=== PATIENT | female | born 1965 | race Caucasian/White ===

== ENCOUNTER 2021-11-24 09:45 | Outpatient (RCR) | payer OTHER, SELFPAY | END 2022-02-14 14:47 | disposition home or self-care (01) | PROVIDERS: PCP Family Medicine; Visit Provider Family Medicine | DX: M54.50 Low back pain, unspecified (principal); Z51.89 Encounter for other specified aftercare | CPT/HCPCS: 97110; 97140; 97763 ==

== ENCOUNTER 2022-07-06 10:04 | Outpatient (CLI) | payer OTHER, SELFPAY ==
--- OUTSIDE RECORDS SUMMARY | 2022-07-08 07:48 | XMS_ITS | Continuity of Care Document ---
Author Name Unknown Organization [facility] Address [address] [address] [place] [address] Phone Care Team Providers Care Stage Builder Name Role Phone Pascale Hugo CRNA Unavailable Unavailabl e Allergies, Adverse Reactions, Alerts Substance Reaction Status Criticality CEPHALEXIN MONOHYDRATE Nausea/Vomiting Active No Information cephalexin Active No Information amlodipine Active No Information lisinopril Active No Information Medications Medication Instructions Dosage Effective Dates (start - stop) Status Comments hydrochlorothiazide 25 mg tablet take 1 tablet by oral route every day 25 MG - Active atenolol 50 mg tablet take 1 tablet by oral route 2 times every day 50 MG - Active Imitrex 50 mg tablet take 1 tablet by oral route once 50 MG - Active Zofran 4 mg tablet take 1 tablet by oral route 4 times every day 4 MG - Active Procedures Procedure Date Colonoscopy Flex; W/remov Les- 21 Level Iv-surg Path Gross/micro 21 Adenoma(s), Other Neoplasm Detected Duri ng Screen Colonoscopy Flex; W/remov Les- 18 Colonoscopy Flex; W/bx 1/mx Level Iv-surg Path Gross/micro 18 Level Ii-surg Path Gross/micro 18 Advance Directives Directive Yes / No Effective Date File Name No Information Encounters Encounter Description Practice Location Reason(s) For Visit Diagnoses Date Provider Providers Copied on Encounter [facility], [address] [address], [place], [id number], [place] tel:[phone] [facility] No Information 1 Bethel Ashraf. [address] [facility], [place], [place], [address], [place]. tel:[phone] Referring Provider: Lius Yonatantatyana ORTA, [address] [facility] [address], [place], [address]. tel:[phone] [facility], [address] [address], [facility] [place], [address], [place] tel:[phone] [facility] GI Symptoms or Concerns (chief complaint) Colorectal polypsHemorrhoids , internalEncounter for screening for malignant neoplasm of colonBenign neoplasm of ascending colonBenign neoplasm of descending colonPersonal history of colonic polyps 1 Rosalba Whelann. [address] [facility], [address], [place] [facility], [id number], [place]. tel:[phone] Referring Provider: Referral Self. [facility], [address] [address], [place], [address], [place] tel:[phone] [facility] No Information 1 Rosalba Mckeon. [address] [facility], [address], [place], [place], [address], [place]. tel:[phone] [facility], [address] [address], [place] [facility], [address], [place] tel:[phone] [facility] Encounter for screening colonoscopyColore ctal polyp detected on colonoscopyBenign neoplasm of ascending colonBenign neoplasm of transverse colonEncounter for screening for malignant neoplasm of colonPolyp of colon 8 Pastora Quintana. [address] [facility], [address], [place], [place], [address], [place]. tel:[phone] Referring Provider: Sandra Cuellar MD W, [place], [address]. tel:[phone] Family History Family Member Type Diagnosis Age At Onset Mother Problem (finding) Father Problem (finding) Alive and well Son Problem (finding) Cancer Mother Problem (finding) malignant neoplasm of l iver Daughter Problem (finding) asthma Son Problem (finding) malignant neoplasm of t estis Immunizations Vaccine Date Status Comments SARS-COV-2 (COVID-19) vaccin e, mRNA, spike protein, LNP, preservative free, 30 mcg/0.3mL dose administered Note: [facility] bi-direct ional interface ; Source: Other Registry SARS-COV-2 (COVID-19) vaccin e, mRNA, spike protein, LNP, preservative free, 30 mcg/0.3mL dose administered Note: [facility] bi-direct ional interface ; Source: Other Registry Influenza administered Note: [facility] bi-d irectional interface ; Source: Other Registry zoster vaccine recombinant administered N ote: [facility] bi-directional interface ; Source: Other Registry zoster vaccine recombinant administered N ote: [facility] bi-directional interface ; Source: Other Registry Influenza, injectable, Madin Luz Canine Kidney, preservative free, quadrivalent administered Note: [place] [facility] bi- directional interface ; Source: Other Registry tetanus and diphtheria toxoi ds, adsorbed, preservative free, for adult use (5 Lf of tetanus toxoid and 2 Lf of diphtheria toxoid) administered Note: [facility] bi-direct ional interface ; Source: Other Registry Influenza, seasonal, injecta ble, preservative free administered Note: [facility] bi-direct ional interface ; Source: Other Registry Afluria Qd administered Note: [facility] bi-directional interface ; Source: Other Registry tetanus toxoid, reduced diphtheria toxoid, and acellular pertussis vaccine, adsorbed administered Note: [facility] b i-directional interface ; Source: Other Registry tetanus and diphtheria toxoi ds, adsorbed, preservative free, for adult use (5 Lf of tetanus toxoid and 2 Lf of diphtheria toxoid) administered Note: [facility] bi-direct ional interface ; Source: Other Registry Payers Payer name Insurance type Covered alliance party ID [facility]ordy rose[facility] [id number] Social History Type Description Quantity Date Captured Comments Sex Female Smoking Status No Information Chief Complaint And Reason For Visit No Information Reason For Referral Reason For Referral No Information Plan Of Treatment Date Type Action Status No Information History Of Present Illness Encounter Date Complaint History Of Prese nt Illness GI Symptoms or Concerns Functional Status Date Functional Assessmen t No Information Instructions Date Instruction Additional Infor mation Colon Polyps Related to Color ectal polyp detected on colonoscopy Colon Cancer Prevention Related to Colorectal polyp detected on colonoscopy Colon Polyps Related to Color ectal polyp detected on colonoscopy Assessments Type Assessment Date No Information Patient Care Teams Name Effective Dates (start - stop) Status Members No Information
== END 2022-07-06 10:05 | disposition home or self-care (01) ==
LOC: NFLDREF 07-08 07:47
PROVIDERS: PCP Internal Medicine; Referring Provider Family Medicine; Visit Provider Internal Medicine
DX: E78.5 Hyperlipidemia, unspecified (principal)
CPT/HCPCS: 80061

== ENCOUNTER 2022-09-14 14:02 | Outpatient (CLI) | payer OTHER, SELFPAY ==
--- NOTE | 2022-09-14 14:00 | CRLHL7_ITS ---
For Patients: As a result of the Cures Act, medical imaging exams and procedure reports are released immediately into your electronic medical record. You may view this report before your referring provider. If you have questions, please contact your health care provider. BILATERAL SCREENING MAMMOGRAM WITH COMPUTER-AIDED DETECTION AND TOMOSYNTHESIS TECHNIQUE: CC and MLO views were obtained. These mammographic images have been obtained using full-field digital technique. These mammographic images were interpreted with the benefit of computer-aided detection. Breast Tomosynthesis was used in this interpretation. COMPARISON FILM: 05/26/21, 02/19/20, 12/05/18. FINDINGS: The breasts are heterogeneously dense, which may obscure small masses IMPRESSION: There is no radiographic evidence for malignancy. ASSESSMENT: BI-RADS Category 1: Negative RECOMMENDATION: Routine screening mammogram in 1 year. A lay language report of this examination will be provided to the patient. Vasiliy Fountain M.D. Diagnostic Radiologist [email or web address] SMILEY/[email or web address] / be/Dictated by: Vasiliy Fountain MD @ 09/17/2022 8:35:00 AM (Electronically Signed)
== END 2022-09-14 14:03 | disposition home or self-care (01) ==
PROVIDERS: PCP Internal Medicine; Visit Provider Internal Medicine
DX: Z12.31 Encounter for screening mammogram for malignant neoplasm of breast (principal); R92.2 Inconclusive mammogram
CPT/HCPCS: 77063; 77067

== ENCOUNTER 2023-01-18 09:15 | Outpatient (CLI) | payer OTHER, SELFPAY | END 2023-01-18 09:16 | disposition home or self-care (01) | LOC: NFLDREF 01-21 08:14 | PROVIDERS: PCP Internal Medicine; Referring Provider Internal Medicine; Visit Provider Internal Medicine | DX: E78.5 Hyperlipidemia, unspecified (principal); R73.03 Prediabetes | CPT/HCPCS: 80061 ==

== ENCOUNTER 2023-02-25 15:49 | Outpatient (CLI) | payer OTHER, SELFPAY ==
[2023-02-25 15:57] LABS: Appearance Urine Clear (Clear); Bilirubin Urine Negative (Negative); Blood Urine 1+ (Negative); Color Urine Yellow (Yellow); Glucose Urine Negative (Negative); Ketones Urine Negative (Negative); Leukocyte Esterase Urine Trace (Negative); Nitrite Urine Negative (Negative); Protein Urine Negative (Negative); Specific Gravity Urine 1.025 (1.000-1.030); Urobilinogen Urine 0.2 (0.2-1.0); pH Urine 5.5 (5.0-8.5)
[2023-02-25 16:02] LABS: Bacteria Urine Moderate
== END 2023-02-25 15:50 | disposition home or self-care (01) ==
PROVIDERS: PCP Internal Medicine; Visit Provider Obstetrics & Gynecology
DX: N39.46 Mixed incontinence (principal)
CPT/HCPCS: 81003; 81015; 87086; 87186

== ENCOUNTER 2023-04-01 18:14 | Outpatient (CLI) | payer BC, SELFPAY ==
--- OUTSIDE RECORDS SUMMARY | 2023-04-01 18:16 | XMS_ITS | Continuity of Care Document ---
Author Name Unknown Organization [facility] Address [address] [address] [place] [address] Phone Care Team Providers Care Staff Respiratory Therapist Name Role Phone Pascale Hugo CRNA Unavailable [...] Encounter [facility], [address] [address], [place], [id number], [place] tel:[phone] [facility] No Information 1 Bethel Ashraf. [address] [facility], [place], [place], [id number], [place]. tel:[phone] Referring Provider: Luis Yonatantatyana ORTA, [address] [facility] [address], [place], [address]. tel:[phone] [facility], [address] [address], [facility] [place], [address], [place] tel:[phone] [facility] GI Symptoms or Concerns (chief complaint) Colorectal polypsHemorrhoids , internalEncounter for screening for malignant neoplasm of colonBenign neoplasm of ascending colonBenign neoplasm of descending colonPersonal history of colonic polyps 1 Rosalba Whelann. [address] [facility], [address], [facility] [place], [address], [place]. tel:[phone] Referring Provider: Referral Self, USE FOR SELF REFERRALS. [facility], [address] [address], [place], [address], [place] tel:[phone] [facility] No Information 1 Rosalba Mckeon. [address] [facility] [address], [place], [place], [address], [place]. tel:[phone] [facility], [address] [address], [place], [address], [place] tel:[phone] [facility] Encounter for screening colonoscopyColore ctal polyp detected on colonoscopyBenign neoplasm of ascending colonBenign neoplasm of transverse colonEncounter for screening for malignant neoplasm of colonPolyp of colon 8 Pastora Quintana. [address] [facility] [address], [address], [place], [place], [address], [place]. tel:[phone] Referring Provider: Sandra Cuellar MD W, [place], [address]. tel:[phone] Family History Family Member Type Diagnosis Age [...] Canine Kidney, preservative free, quadrivalent administered Note: [place] [facility] bi- directional interface ; Source: Other Registry tetanus and diphtheria toxoi ds, adsorbed, preservative free, for adult use (5 Lf of tetanus toxoid and 2 Lf of diphtheria toxoid) administered Note: [facility] bi-direct ional interface ; Source: Other Registry Influenza, seasonal, injecta ble, preservative free administered Note: [facility] bi-direct ional interface ; Source: Other Registry Afluria Qd [id number] administered Note: [facility] bi-directional interface ; [...] Registry Payers Payer name Insurance type Covered democrat ID Yordy rose(s) [facility] [id number] Social History Type Description Quantity Date Captured Comments Sex Female Smoking Status No Information Chief Complaint And Reason For Visit No Information Reason For Referral Reason For Referral No Information History Of Present Illness Encounter [...]
== END 2023-04-01 18:15 | disposition home or self-care (01) ==
LOC: NFLDREF 18:14
PROVIDERS: PCP Internal Medicine; Visit Provider Obstetrics & Gynecology
DX: N39.0 Urinary tract infection, site not specified (principal)
CPT/HCPCS: 87086

== ENCOUNTER 2023-09-27 13:45 | Outpatient (RCR) | payer BC, OTHER, SELFPAY ==
--- NOTE | 2023-03-06 15:53 | PT.OPDNX ---
PT [place] [facility] Daily Note PT [facility] Daily Note Start: 10/24/22 14:17 Freq: Status: Active Protocol: Document 03/06/23 13:36 ARR (Rec: 03/06/23 15:51 ARR [id number]) E-signed By Jocelin Pinto DPT PT OP Daily Progress Note Visit Information Note Type Daily Note,Recert/Progress Note Visit Number 12 Cancellation Note Cancelled Documentation Eval 10/24/22 POC 1 x 12 Insurance Information Insurance Name [facility] Medical Diagnosis N39.46 mixed incontinence Treating Diagnosis R35.0 Frequency of micturition R39.14 Feeling of incomplete bladder emptying N39.43 Post-void dribbling N39.46 Mixed incontinence ( Urge and stress incontinence) Subjective Subjective -Had UTI. On last day of antibiotic today. To hold on use of device until then. -Will be getting fit for pessary. Has appt in Mar for getting the device. Is a candidate for prolapse surgery if indicated in the future. -Notes having tendencies to want to bear down, adrian when getting out of the chair. -Did use kegel canine service instructor trainer 3x since last session. Feels stimulation of device but not a muscle contraction necessarily -Tried increasing hydration getting to 80-90 oz. Was really thirsty and not sure if it was due to the antibiotic, she was on for UTI. Leakage hasn't been as bad, little dribbles vs gushes. Quarter sized leakage associated with urge to urinate, also with un- buttoning pants due to L hand in a brace. Does do urge suppression strategies. -Leaving for [place] x 2 wks after herminia. Next PT session not until end of Mar Pain Comments Education: -Proper hygiene with use of kegel canine service instructor trainer - Home Exercise Home Exercise Comments GOALS FOR THE WEEK: -Urination: ---Sitting on toilet, forearms resting on thighs. Reposition as needed to get more of a urine stream (2nd bladder). ---Inhale deeply relaxing body and muscles ---Exhale without tightening anything, breath comes out naturally without forcing it ---Visualize muscles at the bottom of your pelvic bowl relaxing GOAL: empty bladder without straining or pushing and empty fully the first time -Sit to Stand: inhale to prepare THEN exhale as you stand (blowing out candles on birthday cake) -Continue to sandwich your coffee -Suppression techniques (see handout) with urges Goals going forward: -Feels loose during sex, would like this to improve -With BM, sometimes after wipe and then after an hour later will feel like there had been leakage. Wondering why this occurs. -Learning how to do a PFC OTHER: -Bladder handout 10/24 Work on voiding posture, double voiding, spreading water throughout day vs fluid loading Work on increasing awareness of bladder irritants, habits, etc -Exhale with exertion -Breathe 360 2-3x, 4-5x/day -Urgency/frequency handout 10/24 Access Code: [email or web address] URL: [email or web address]. CoverMe/ Date: 10/31/2022 Prepared by: Jocelin Pinto Program Notes -Taking 2-3 deep breaths 4-5x/ day sprinkled into your day breathing 360.?-Exhale when rising to stand from the chair ? Exercises - Sidelying Thoracic and Shoulder Rotation - 1 x daily - 5-7 x weekly - 8-10 reps - Sidelying Diaphragmatic Breathing - 1 x daily - 5-7 x weekly - 6-8 reps Objective Other/Pertinent Objective 12/03: PF strength MMT 0/5. Reduced tone and no TTP noted throughout layers 1-3. With attempts at PFC pt actually bearing down into lower abdominal area and into pelvic floor holding breath INTERNAL EXAMINATION INTRAVAGINAL 10/31/22: -Sensation: intact to touch -Perineum: lowered (convex) -Lifting contraction: nil, compensatory PPT, adductor activation -Bulge: nil -Prolapse: anterior wall laxity with descent of tissue to level of hymen with bearing down Tenderness/pain to palpation/ tone: -Layer 1: LEFT bulbospongiousus / superficial transverse perineal -Layer 2: LEFT deep transverse perineal / sphincter urethrovaginalis -Layer 3: puborectalis / pubococcygeus / iliococcygeus LEFT/RIGHT inc'd tone TTP and inc'd tone and TTP in areas noted above unless otherwise stated Strength ( R / C / L): -Power (MMT): unable to contract PFM Other: -Breathing examination: dec?d posterior and lateral ribcage mvmt with inhalation -Coordination: unable to activate TA with isometric activation EXTERNAL OBJECTIVE: -Movement screen: MS flexion fingertips to ankles with dec' d LS mobility. MS extension hinges at L4-5 reduced segmental mobility throughout. MS rotation: 50% limitation to L, 25% to R. -SLS: <10 sec ea side with pelvic drop -Posture: level IC with inv'd APT, loss of TS kyhposis and scoliotic curve with posterior prominence on the L in TS. Bilateral knee flexion 5-10* with genu varum -Hip PROM: IR 50 bilat , ER 70 bilat, hip ext lacking ext bilaterally -Strength: glut medius: 2+ Special tests: -Flexibility: + HS bilat, + piriformis bilat, + HF bilat Functional Test Performed & Score PFQ: -Bladder 29, bowel 5, prolapse 0, sexual 4. Total: 38 Patient Instructed in Risks/Benefits Yes Neuromuscular Re-Ed Neuromuscular Reeducation Minutes ( 25 minutes) Neuromuscular Reeducation Comments NMR: Indicated to facilitate improved muscle firing and postural awareness through the use of tactile cues. Focus of exercises below on breathing pattern and lifting vs bearing down into pelvic floor -SIt/standing from chair with staggered stance 2 x 5 reps -Leg press x 12 reps 65#. 85# x 12 reps -Seated sh flexion 2# x 10 reps bilat. Self Care Management Training Self-Care Activity Minutes (minutes) 30 Self Care Management Training Self Care/Home Management: -Subjective assessment as above and discussion Urinary urgency education review: -Discussed calming urge when walking by stopping leaning against wall for PFC -Discussed continuing to increase water intake during the day GOALS - discussed this date and provided handout for patient: - Use Vaginal estrogen - Using kegel device (try unscented soaps for cleaning ? let air dry). - Getting up from chair: o Stagger feet and spread apart knees o Inhale to prepare o Exhale blowing out candles ( lifting from pelvic floor to low abs) BEFORE you start to move ? Can visualize a squeeze of then openings SHUT (external) then lifting of the muscles internal in the vaginal canal - Continue urge suppression techniques to calm urges to urinate Treatment Minutes Timed Code Treatment Minutes 55 Total Treatment Time 55 Billing Units Neuromuscular Reeducation Units 3 Self-Care Activity Units 1 Assessment/Impression Assessment/Impression Due to current UTI treatment did not complete vaginal treatment/assessment this date . 50% of session focused on behavioral education and goals as pt does not have another visit until 04/10/23 due to traveling and clinic schedule. 50% of session focused on improving awareness of PF lift with functional mvmts/ transitions and with exercise to reduce instances of bearing down into PFM. Pt to contact PT sooner than next visit if having questions/concerns. Pt had been seen for urinary leakage and weakness for 12 visits from 10/24/22 to 03/06/23 during this episode of physical therapy. Focus of therapy on spinal/hip mobility and breathing, proximal strengthening of core/gluts. Behavioral interventions for improving bladder/bowel health , urge suppression. Interventions including ther exercise, manual therapy, neuromuscular re-education, self-care. Pt at this time has not met all short/prison goals and would benefit from extension of current plan of care for an additional x 5 visits at a frequency of every other week. Continued focus of therapy is to target proximal strengthening and coordination of pelvic floor/ TA and pelvic floor/gluts and functional mobility. Goals below are unchanged but timeframes adjusted to account for the additional x 5 visits . Pt agreeable with POC Plan of Care Physical Therapy Goals STG (within 6 weeks ) 1)Pt will demonstrate full ROM of pelvic floor with ability to contract, relax and lengthen for improved contractility of tissue during ADLs 2) Pt will report voiding interval at least 45 min without incontinence to show improved bladder filling prior to voiding 3)Pt will be indep in recall of at least 3 urinary urge suppression techniques in order to increase duration of voiding interval 4) Pt will report reduced urinary leakage episodes no more than 4x/week for improved health of vaginal tissues LTG (within 5 weeks - total of 17) 1)Pt will report reduced urinary leakage episodes no more than 2 per week for improved health of vaginal tissues 2)Pt will report voiding interval at least 2 hours without incontinence to show improved bladder filling prior to voiding 3) Pt will report counting 8- 10 [place]au's while going to the bathroom at least 80% of the time for proper micturition of a full bladder 4) Pt will demonstrate PFQ subscale bladder score <20 for improved quality of life. Daily Plan of Care Comments -Review kegel device as indicated. Return vaginally to asses PFC and qs -Review kegel canine service instructor trainer, use of pessary. TARGET LE STRENGTHENING *Reassess ability to add in PF recruitment in with exercises vs focus on lower abs - reassess supine as indicated and continue in supported postures with external support at perineum for external feedback progressing toward standing Recertification Information Initial Certification Date 10/24/22 Recertification Start Date 03/07/23 Reasons to Continue Skilled Therapy Pt had been seen for urinary leakage and weakness for 12 visits from 10/24/22 to 03/06/23 during this episode of physical therapy. Focus of therapy on spinal/hip mobility and breathing, proximal strengthening of core/gluts. Behavioral interventions for improving bladder/bowel health , urge suppression. Interventions including ther exercise, manual therapy, neuromuscular re-education, self-care. Pt at this time has not met all short/prison goals and would benefit from extension of current plan of care for an additional x 5 visits at a frequency of every other week. Continued focus of therapy is to target proximal strengthening and coordination of pelvic floor/ TA and pelvic floor/gluts and functional mobility. Goals below are unchanged but timeframes adjusted to account for the additional x 5 visits . Pt agreeable with POC Provider Signature Shows Agreement With POC & Medical Necessity Physician Comment/Change Comment or Changes Physician NPI Number #
== END 2023-12-25 08:55 | disposition home or self-care (01) ==
PROVIDERS: PCP Internal Medicine; Visit Provider Internal Medicine
DX: S63.602A Unspecified sprain of left thumb, initial encounter (principal); N39.46 Mixed incontinence; M18.12 Unilateral primary osteoarthritis of first carpometacarpal joint, left hand; I10 Essential (primary) hypertension; R35.0 Frequency of micturition; R39.14 Feeling of incomplete bladder emptying; N39.43 Post-void dribbling; M25.532 Pain in left wrist; M79.645 Pain in left finger(s); Z51.89 Encounter for other specified aftercare
CPT/HCPCS: 97033; 97035; 97110; 97112; 97140; 97162; 97165; 97530; 97535; L3808; X5282

== ENCOUNTER 2023-09-30 14:00 | Outpatient (RCR) | payer BC, SELFPAY | END 2024-01-28 23:59 | disposition home or self-care (01) | PROVIDERS: PCP Internal Medicine; Visit Provider Psychiatry & Neurology Neurology | DX: G20.A1 Parkinson's disease without dyskinesia, without mention of fluctuations (principal); Z51.89 Encounter for other specified aftercare | CPT/HCPCS: 80048; 80061; 97110; 97112; 97116; 97140; 97162; 97530 ==

== ENCOUNTER 2023-11-06 09:19 | Outpatient (CLI) | payer BC, SELFPAY ==
--- NOTE | 2023-11-06 09:15 | CRLHL7_ITS ---
For Patients: As a result of the Century Cures Act, medical imaging exams and procedure reports are released immediately into your electronic medical record. You may view this report before your referring provider. If you have questions, please contact your health care provider. INDICATION: ASPIRATION TECHNIQUE: Modified barium swallow. Fluoroscopic time 1 minute 25 seconds. FINDINGS/IMPRESSION: Adenoid tonsillar hypertrophy noted. Swallowing mechanism appears within normal limits. No episodes of penetration or aspiration. No obstruction. Dictated by Vasiliy Fountain MD @ 11/06/2023 10:14:57 AM (Electronically Signed)
--- NOTE | 2023-11-06 13:09 | SLP.EVAL ---
Dr. Adam Please review, sign and return. Thank you Carley Patton, BIOPHYSICS PROFESSOR BIOPHYSICS PROFESSOR Debbyal MEJIA Treadwell Start: 11/06/23 10:04 Freq: Status: Active Protocol: Document 11/06/23 10:05 [facility] (Rec: 11/06/23 10:09 [facility] Desktop) E-signed By Carley Patton, SAMANTHA, BIOPHYSICS PROFESSOR BIOPHYSICS PROFESSOR System Review History & Reason For Referral Type of Speech Evaluation Modified Barium Swallow Evaluation Rehabilitation Order Evaluation Date of Order 10/24/23 Reason for Referral Patient reports frequent coughing especially with liquids. Medical Diagnosis Parkinson's Disease Treatment Diagnosis Dysphagia Hearing Information Hearing Status Within normal Vision Information Vision Status Patient wears glasses for reading. Patient Orientation Orientation & Mental Status Appears to be within normal limits BIOPHYSICS PROFESSOR Initial Assessment/POC Subjective Information Subjective/Pain Comment Patient independently ambulated to the xray suite. Assessment & Impression Assessment/Impression Patient is a 58 year old female referred for a modified barium swallow study. She was diagnosed with Parkinson's about a year ago. She has noticed the swallowing problems for a couple of years . She reports that she often coughs especially with liquids and feels like she is sometimes pouring liquid into her lungs. She reports that she has changed the way she eats by taking small sips and bites and staying focused on swallowing when she eats. Patient took a couple of sips of water before the test began . On the first sip she coughed but not on the next sip when she said she focused on her swallow. THIN Patient took sips of thin liquid by cup. There was some premature spillage to the vallecula but no penetration or aspiration occurred on any trial of thin liquid. PUREE Patient given a teaspoon of puree. She was able to manipulate and swallow without penetration, aspiration or pharyngeal residue. MUFFIN AND COOKIE WITH BARIUM PUREE Patient given separate trials of muffin and cookie each mixed with barium puree. She was able to chew each and swallow without penetration, aspiration or pharyngeal residue. IMPRESSIONS AND RECOMMENDATIONS Patient did not have any penetration or aspiration during the evaluation. She did have some coughing with water prior to starting. She has a small amount of premature spillage to the vallecula with thin liquids which when she takes larger amounts could result in the vallecula overfilling and liquids being aspirated. This did not happen today but the risk is there. Recommend patient take small sips of liquid and stay focused on swallowing. Recommend she avoid straws. Images and recommendations reviewed with patient and questions answered. Therapist Signature & License # I Certify That Therapy Services Provided Therapist Signature & License Number Carley Patton, [facility]-BIOPHYSICS PROFESSOR, # [id number] Physician Signature Signature of Physician Indicates Medically Needed Services Physician Signature & Date Required Please Sign/Date Here Speech/Language Pathology Billing Units Billing Units Eval Swallow Motion Fluoro 1
== END 2023-11-06 09:20 | disposition home or self-care (01) ==
LOC: RAD 09:19
PROVIDERS: PCP Internal Medicine; Visit Provider Otolaryngology
DX: T17.908A Unspecified foreign body in respiratory tract, part unspecified causing other injury, initial encounter (principal)
CPT/HCPCS: 74230; 92611

== ENCOUNTER 2023-11-11 13:30 | Outpatient (CLI) | payer BC, SELFPAY ==
--- OUTSIDE RECORDS SUMMARY | 2023-11-11 13:33 | XMS_ITS | Clinical Summary ---
Author Organization [employer] Address [place], [place] [address] Care Team Providers Care Cmm Inspector Name Role Phone Margaret Bolden MD Primary Care Provider + Allergies Active Allergy Reactions Criticality Noted Date Comments Amlodipine GI Upset High 07/28/2021 Cephalexin Stomach Upset High 07/28/2021 Lisinopril GI Upset High 07/28/2021 Medications Medication Sig Dispensed Refills Start Date End Date Status atenoloL (TENORMIN) 50 mg tablet Take 50 mg by mouth 2 times daily. 06/16/2021 Active fluticasone (50 mcg per actuation) nasal solution (FLONASE) Twice A Day Activ e hydroCHLOROthiazide (HCTZ) 25 mg tablet Take 25 mg by mouth once daily. 06/16/2021 Active SUMAtriptan (IMITREX) 50 mg tablet TAKE 1 TABLET AT ONSET OF HEADACHE, MAY REPEAT EVERY 2 HOURS NEEDED , MAX 200 MG/24 HRS 06/16/2021 Active durable medical equipment (DME)Indications:Plant ar fasciitis, left [id number] Plantar Fasciitis,Night Splint, Medium 1 Each 08/23/2021 Active Social History Tobacco Use Types Packs/Day Years Used Date Smoking Tobacco: Never Assessed Sex and Gender Information Value Date Recorded Sex Assigned at Not on file Gender Identity Not on file Sexual Orientation Not on file Last Filed Vital Signs Vital Sign Reading Time Taken Comments Blood Pressure 116/80 08/23/2021 3:07 PM CDT Pulse 63 08/23/2021 3:07 PM CDT Temperature - - Respiratory Rate - - Oxygen Saturation 99% 08/23/2021 3:07 PM CDT Inhaled Oxygen Concentration - - Weight 101.3 kg (223 lb 4.8 oz) 08/23/2021 3:07 PM CDT Height - - Body Mass Index - - Plan of Treatment Health Maintenance Due Date Last Done Comments Tdap 1976 Depression screening for age 12+ 1977 HIV for age 15-65 1980 BMI (ht and wt on same day) for age 18+ 10/12/1983 Hepatitis C screening for ag e 18-79 10/12/1983 Tetanus booster 1985 Colonoscopy through age 75 2010 Lipids for age 45-75 2010 Mammogram for age 45-75 2010 Zoster (shingles) series for age 50+ (1 of 2) 10/12/2015 COVID-19 vaccine series (2022- season) 2022 02/28/2021, 07/02/2020, 06/11/2020 Influenza for age 50-64 11/17/2023 Pap test for age 21-65 03/31/2024 , 03/31/2021 Pneumococcal series for age 6-64 Aged Out No longer eligible b ased on patient's age to complete this topic Procedures Procedure Name Priority Date/Time Associated Diagnosis Comments HPV THIN PREP Routine 03/31/2021 12:00 PM FIELD PROFESSIONAL from Last 3 Months or Most Recently Relevant to Health Maintenance Results * HPV HIGH RISK (03/31/2021 12:00 PM FIELD PROFESSIONAL) TYPE 16 Negative Negative 04/04/2021 2:16 PM FIELD PROFESSIONAL [facility] TYPE 18 Negative Negative 04/04/2021 2:16 PM FIELD PROFESSIONAL [facility] OTHER HIGH RISK TYPES Negative Negative 04/04/2021 2:16 PM FIELD PROFESSIONAL [facility] Other (Other) 03/31/2021 12: 00 PM FIELD PROFESSIONAL 04/03/2021 7:39 AM FIELD PROFESSIONAL [facility] - 04/04/2021 2:16 PM FIELD PROFESSIONAL HPV types 16, 18, 31, 33, 35, 39, 45, 51, 52, 56, 58, 59, 66 and 68 DNA were undetectable or below the pre-set threshold. Methodology: Kendall Yasmine 4800 HPV Test Margaret Bolden MD MICROBIOLOGY [facility] [address] [place] [address], from Last 3 Months or Most Recently Relevant to Health Maintenance Care Teams Cmm Inspector Relationship Specialty Start Date End Date Margaret Bolden MD [address] [place] [address] PCP - General Family Practice 08/23/21
--- OUTSIDE RECORDS SUMMARY | 2023-11-11 13:33 | XMS_ITS | Clinical Summary ---
Author Organization [facility] Address [address] [place] [address] Care Team Providers Care Whipper Beater Name Role Phone Shoshana Harding MD Primary Care Provider [phone] Source Comments You are receiving this document as you are listed as the primary care provider,follow-up provider, or the patient has been referred to you for consultation.This is in compliance with the Medicare and[facility] EHR Incentive Program,which states Providers who transition their patient to another setting of careor provider of care or refers their patient to another provider of care shouldprovide summary care record for each transition of care or referral. [employer] Allergies No known active allergies Medications Medication Sig Dispensed Refills Start Date End Date Status azithromycin (AKA ZITHROMAX) 250 MG tabletIndications:Sin usitis Take by mouth . Take two tablets on the first day, and take one tablet each day on days 2-5 Active ATENolol (AKA TENORMIN) 50 MG tablet Take 1 Tablet (50 mg) by mouth daily. Active Norethindrone-Eth Estradiol (NORTREL , 28, OR) As directed Active fluticasone (AKA FLONASE) 50 MCG/ACT nasal solutionIndications:S inusitis Apply or instill 2 Sprays into both nostrils daily. 16 g 11 05/29/2010 Active Immunizations Name Administration Dates Next Due Flu Vac Preserv Free (3+yrs) 11/17/2015 Fluzone Qiv Multidose Vial 0.25 (6-35 Mos) 01/16 Influenza (Flucelvax), Preserv Free QIV 12/22/19 17 Influenza IIV4 (Quadrivalent) 0.5mL (40243) 11/16 Pfizer Monovalent 12+ Purple Top 02/28/2021,06/16,06/11/2020 Td, Preservative Free 11/02/2016,10/25/1997 Tdap 08/21/2007 Zoster RZV (Shingrix) 10/22/2017,07/09/2017 Social History Tobacco Use Types Packs/Day Years Used Date Smoking Tobacco: Never Smokeless Tobacco: Never Alcohol Use Standard Drinks/Week Comments Not Asked 0 (1 standard drink = 0.6 oz pur e alcohol) Sex and Gender Information Value Date Recorded Sex Assigned at Not on file Gender Identity Not on file Sexual Orientation Not on file Last Filed Vital Signs Vital Sign Reading Time Taken Comments Blood Pressure 140/90 05/29/2010 7:34 PM CDT Pulse 60 05/29/2010 7:34 PM CDT Temperature 36.7 ??C (98.1 ??F) 05/29/2010 7:34 PM CD T Respiratory Rate - - Oxygen Saturation - - Inhaled Oxygen Concentration - - Weight - - Height - - Body Mass Index - - Plan of Treatment Health Maintenance Due Date Last Done Comments Colon Cancer Screening Plan Due 1965 Hep C Screening (Preventive Services) 1965 MTM Covered 1965 HIV Screening (Preventive Services) 1981 Adult Preventive Visit 10/12/1983 HepB (1) 1984 Cholesterol 2010 Cervical Cancer Screening Due 07/14/2011 07/13/2011 Mammogram 08/07/2014 08/07/2013 COVID-19 Vaccine ( season) 2022 02/28/2021, 07/02/2020, 06/11/2020 Influenza (#1) 2023 03/24/2021, 11/03/2018, 12/21/2016, Additional history exists DTaP/Tdap/Td (3 - Tdap) 11/02/2026 11/03/19 17, 08/21/2007, 10/25/1997 Zoster/Shingles Completed 10/22/2017, 07/09/2017 HepA Aged Out No longer eligi ble based on patient's age to complete this topic Hib Aged Out No longer eligi ble based on patient's age to complete this topic IPV (Polio) Aged Out No longer eligi ble based on patient's age to complete this topic MCV4 Aged Out No longer eligi ble based on patient's age to complete this topic Pneumococcal Aged Out No longer eligi ble based on patient's age to complete this topic Care Teams Whipper Beater Relationship Specialty Start Date End Date Shoshana Harding MD [address] [place] [address] PCP - General Internal Medicine 05/24/22
--- NOTE | 2023-11-11 13:40 | CRLHL7_ITS ---
For Patients: As a result of the Century Cures Act, medical imaging exams and procedure reports are released immediately into your electronic medical record. You may view this report before your referring provider. If you have questions, please contact your health care provider. BILATERAL DIGITAL SCREENING MAMMOGRAM WITH COMPUTER-AIDED DETECTION AND TOMOSYNTHESIS CLINICAL HISTORY: Routine screening exam. COMPARISON: 05/26/2021, 02/19/2020, 12/09/2018, 12/05/2018. TECHNIQUE: Digital mammogram in CC and MLO projections including computer-aided detection (CAD). Tomosynthesis was used in this interpretation. BREAST COMPOSITION: The breasts are heterogeneously dense, which may obscure small masses. FINDINGS: RIGHT Breast: No suspicious findings. LEFT Breast: Nodular density within the posterior LEFT breast 12 o`clock 6 cm from the nipple. IMPRESSION: LEFT breast asymmetry/mass. RECOMMENDATIONS: Additional mammographic views of the LEFT breast including 3D spot compression CC/MLO. LEFT breast ultrasound may also be required. The [facility] will contact the patient for follow-up. BI-RADS Category 0: Incomplete: Need Additional Imaging Evaluation and/or Prior Mammograms for Comparison. A lay language report of this examination will be provided to the patient. Dictated by Vasiliy Fountain MD @ 11/13/2023 11:05:33 AM /sp/waylon SP/Dictated by: Vasiliy Fountain MD @ 11/13/2023 11:11:00 AM (Electronically Signed)
== END 2023-11-11 13:31 | disposition home or self-care (01) ==
LOC: MAMMO 13:31
PROVIDERS: PCP Internal Medicine; Visit Provider Internal Medicine
DX: Z12.31 Encounter for screening mammogram for malignant neoplasm of breast (principal); N63.20 Unspecified lump in the left breast, unspecified quadrant; R92.2 Inconclusive mammogram
CPT/HCPCS: 77063; 77067

== ENCOUNTER 2023-11-27 16:45 | Outpatient (RCR) | payer BC, SELFPAY | END 2024-03-26 23:59 | disposition home or self-care (01) | PROVIDERS: PCP Internal Medicine; Visit Provider Internal Medicine | DX: M18.12 Unilateral primary osteoarthritis of first carpometacarpal joint, left hand (principal); G20.A1 Parkinson's disease without dyskinesia, without mention of fluctuations; R53.1 Weakness; R29.898 Other symptoms and signs involving the musculoskeletal system; Z51.89 Encounter for other specified aftercare | CPT/HCPCS: 97035; 97112; 97140; 97165; 97535 ==

== ENCOUNTER 2023-12-06 09:36 | Outpatient (CLI) | payer BC, SELFPAY ==
--- OUTSIDE RECORDS SUMMARY | 2023-12-06 09:38 | XMS_ITS ---
Author Organization [facility] Address [address] [place] [address] Care Team Providers Care Sr. Payroll Manager Name Role Phone Unavailable Unavailable Unavailable Surgery Details Not on file Complications Check Surgery Details section. Procedure Estimated Blood Loss Check Surgery Details section. Procedure Findings Check Surgery Details section. Procedure Specimens Taken Check Surgery Details section.
--- OUTSIDE RECORDS SUMMARY | 2023-12-06 09:38 | XMS_ITS | Clinical Summary ---
Author Organization [facility] Address [address] [place] [address] Care Team Providers Care Chief Nursing Officer Name Role Phone Unavailable Primary Care Provider Unavailabl e Source Comments Patient records contain information from all sites at [facility]. For routine questions regarding patient records, call [phone] during business hours, M-F 8:00 AM - 5:00 PM Central Time. Record requests for emergency care only can be directed to [phone] at any time.[facility] Allergies Active Allergy Reactions Criticality Noted Date Comments Amlodipine Other (see comments) High 07/28/2021 Cephalexin Other (see comments) High 07/28/2021 Lisinopril Other (see comments) High 07/28/2021 Medications Medication Sig Dispensed Refills Start Date End Date Status atenoloL (Tenormin) 50 mg tablet Take 50 mg by mouth 2 (two) times a day. Active carbidopa-levodopa (Sinemet) 25-100 mg per tablet Take 1 tablet by mouth every 4 (four) hours PM. 11/21/2023 Active DULoxetine (Cymbalta) [address] capsule Take 1 capsule by mouth 2 (two) times a day. 09/16/2023 Active fluticasone propionate (Flonase) 50 mcg/actuation nasal spray Administer 2 sprays into each nostril daily. 05/29/2010 Active hydroCHLOROthiazide (HydroDiuril) 25 mg tablet Take 25 mg by mouth daily. Active simvastatin (Zocor) 5 mg tablet Take 1 tablet by mouth daily. 10/06/2023 Active SUMAtriptan (Imitrex) 50 mg tablet Take 50 mg by mouth as needed. 06/16/2021 Active NORETHINDRONE-ETHIN ESTRADIOL ORAL See Admin Instructions. Active ondansetron ODT (Zofran-ODT) 4 mg disintegrating tablet Dissolve 4 mg in the mouth every 8 (eight) hours as needed for nausea or vomiting. 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 Incontinence Urinary Stress And Urge (Primary Dx); Overactive Bladder; Atrophy Pelvic Muscle Disuse; Cervical Stump Prolapse; Atrophy Vagina Due To Estrogen Deficiency; Parkinsonism Unspecified (HCC) 11/29/2023 11:15 AM CDT Procedure visit Department of Obstetrics and Gynecology, Division of Urogynecology in [place], [place] [address] [place] [phone] Don Null M.D., M.S. Cystocele Midline (Primary Dx); Incontinence Urinary Stress And Urge 11/27/2023 1:15 PM CDT Clinical Communication Virtual Review in [place], [place] 200 [place] [address] Pre-visit Intake 11/26/2023 Documentation Department of Obstetrics and Gynecology, Division of Urogynecology in [address] [phone] Franc Perez R.N. from Last 3 Months Social History Tobacco Use Types Packs/Day Years Used Date Smoking Tobacco: Never Passive Smoke Exposure: Never Smokeless Tobacco: Never [facility] Utilities Answer Date Recorded In the past 12 months has th e electric, gas, oil, or water company threatened to shut off services in your home? No 11/27/2023 Exercise Vital Sign Answer Date Recorde d On average, how many days pe r week do you engage in moderate to strenuous exercise (like a brisk walk)? 3 days 11/27/2023 On average, how many minutes do you engage in exercise at this level? 20 min 11/27/2023 Hunger Vital Sign Answer Date Recorded Within the past 12 months, y ou worried that your food would run out before you got the money to buy more. Never true 11/27/19 Within the past 12 months, t he food you bought just didn't last and you didn't have money to get more. Never true 11/27/2023 PRAPARE - Transportation Answer Date Re corded In the past 12 months, has l ack of transportation kept you from medical appointments or from getting medications? No 11/16 In the past 12 months, has l ack of transportation kept you from meetings, work, or from getting things needed for daily living? No 11/27/2023 Nutrition Answer Date Recorded On average, how many serving s of fruits and vegetables do you eat per day (serving size is equal to 1 cup or approximately the size of a tennis ball)? 3-5 11/27/2023 Dental Answer Date Recorded Dental: Regular Dentist Yes 11/27/19 Employment Answer Date Recorded Employment status Employed and actively working without restrictions 11/27/2023 Housing Stability Answer Date Recorded What is your living situation today? I have a [facility] place to live 11/27/2023 Sex and Gender Information Value Date Recorded Sex Assigned at Female 11/27/2023 7:44 PM CDT Gender Identity Female 11/27/2023 7:44 PM CDT Sexual Orientation Straight 11/27/2023 7: 44 PM CDT Last Filed Vital Signs Vital Sign Reading Time Taken Comments Blood Pressure - - Pulse - - Temperature - - Respiratory Rate - - Oxygen Saturation - - Inhaled Oxygen Concentration - - Weight 103 kg (227 lb 1.2 oz) 11/29/2023 1:05 PM CDT w/ shoes Height 168.6 cm (5' 6.38) 11/29/2023 1:05 PM CD T w/ shoes Body Mass Index 36.23 11/29/2023 1:05 PM CDT Plan of Treatment Health Maintenance Due Date Last Done Comments CT Colonography 1965 Cologuard 1965 Colonoscopy 1965 Colorectal Cancer Surveillance 1965 Creatinine Level (Kidney Function Test) 1965 Fasting Glucose for Diabetes Screening 1965 HIV Screening 1965 Hepatitis C Screening 1965 Lipid (Cholesterol) Screening 1965 Mammogram 1965 Office Visit for Blood Pressure Check / Re-check 1965 Potassium Level 1965 Sodium Level 1965 Hepatitis B Vaccines (1 of 3 - 19+ 3-dose series) 1984 Depression Screening (Annual PHQ-2) 03/18/2023 COVID-19 Vaccine ( season) 2023 02/28/2021, 07/02/2020, 06/11/2020 Influenza Vaccine (#1) 2023 , 03/24/2021, 01/16/2019, Additional history exists DTaP,Tdap,and Td Vaccines (3 - Td or Tdap) 11/02/2026 11/02/2016, 08/21/2007, 10/25/1997 Zoster Vaccines Completed 10/22/2017, 07/09/2017 Pneumococcal vaccine (0-64 years) Aged Out No longer eligible based on patient's age to complete this topic Procedures Procedure Name Priority Date/Time Associated Diagnosis Comments DIPSTICK, U Routine 11/29/2023 11:41 AM CDT PH, U Routine 11/29/2023 11:41 AM CDT MICROSCOPIC AUTOMATED Routine 11/29/2023 11:41 AM CDT OSMOLALITY, U Routine 11/29/2023 11:41 AM CDT URINALYSIS WITH MICROSCOPIC Routine 11/29/2023 11:41 AM CDT Cystocele Midline Incontinence Urinary Stress And Urge BACTERIAL CULTURE, AEROBIC + SUSC, URINE Routine 11/29/2023 11:41 AM CDT Cystocele Midline Incontinence Urinary Stress And Urge SD CYSTOMETROGRAM COMPLEX Routine 11/29/2023 11:15 AM CDT Cystocele Midline Incontinence Urinary Stress And Urge SD UROFLOWMETRY CMPLX Routine 11/29/2023 11:15 AM CDT Cystocele Midline Incontinence Urinary Stress And Urge SD PANCHO PST VOID RESID US NON IMG Routine 11/29/2023 11:15 AM CDT Cystocele Midline Incontinence Urinary Stress And Urge from Last 3 Months Results * Dipstick, Urine (11/29/2023 11:41 AM CDT) Hemoglobin, QL, U Negative Negative 11/29/2023 2:31 PM CDT DTL Leukocyte Esterase, U Negative Negative 11/29/2023 2:31 PM CDT DTL Nitrite, U Negative Negative 11/29/2023 2:31 PM CDT DTL Ketone, U Negative Negative mg/dL 11/29/2023 2:31 PM CDT DTL Glucose, U Negative Negative mg/dL 11/29/2023 2:31 PM CDT DTL Urine 11/29/2023 11:4 1 AM CDT 11/29/2023 1:38 PM CDT Don Null M.D., M.S. LAB URINE JC GUILLERMO [facility] [address] [place] [address], [facility] DTL [facility] [address] [place] [address] * Microscopic Automated (11/29/2023 11:41 AM CDT) Microscopy Normal 11/29/2023 2:31 PM CDT DTL RBC <3 <3 /hpf 11/29/2023 2:31 PM CDT DTL WBC None Seen /hpf 11/29/2023 2:31 PM CDT DT Comment: ----REFERENCE VALUE---- <4 ??(Males) <11 (Females) Urine 11/29/2023 11:4 1 AM CDT 11/29/2023 1:38 PM CDT Don Null M.D., M.S. LAB URINE ORDE RABALEXI Performing Organization Address [facility] Co de Phone Number [facility] [address] [place] [address] * Bacterial Culture, Aerobic + Susceptibility, Urine (11/29/2023 11:41 AM CDT) Urine Culture No growth after 1 day of incubation. 11/30/2023 8:07 AM CDT DTL Urine (Urine, Straight Catheter) 11/29/2023 11:41 AM CDT 11/29/2023 2:36 PM CDT Comment:Specimen Source Site : Urine Don Null M.D., Tena. LAB MICROBIOLO GY - GENERAL ORDERABLES Performing Organization Address [facility] Co de Phone Number [facility] [address] [place], [place] [id number] [place] [address] [address] [place] [address] * pH, Urine (11/29/2023 11:41 AM CDT) pH, U 6.6 4.5 - 8.0 11/29/2023 2:4 3 PM CDT DTL Urine 11/29/2023 11:4 1 AM CDT 11/29/2023 1:38 PM CDT Don Null M.D., MRandeeS. LAB URINE ORDE RABALEXI Performing Organization Address City/[facility]/ZIP Co de Phone Number [facility] [address] [place] [address], [facility] 200 [place] [address] * Osmolality, Urine (11/29/2023 11:41 AM CDT) Osmolality, U 560 150 - 1150 mOsm/kg 11/29/2023 2:43 PM CDT DTL Urine 11/29/2023 11:4 1 AM CDT 11/29/2023 1:38 PM CDT Don Null M.D., M.S. LAB URINE ORDE HEIDIALEXI [facility] [address] 200 [place] [address] * Urinalysis, with Microscopic: Urine, Straight Catheter (11/29/2023 11:41 AM CDT) Source Urine, Urine, Straight Catheter 11/29/2023 1:37 PM CDT DTL Color, U Yellow 11/29/2023 1:37 PM CDT DTL Clarity, U Clear 11/29/2023 1:37 PM CDT DTL Protein, U 7 <26 mg/dL 11/29/2023 2:21 PM CDT DTL Protein/Osmola lity 0.13 <0.42 ratio 11/29/2023 2:43 PM CDT DTL Predicted 24 HR Protein, U 101 <229 mg/24 h 11/29/2023 2:43 PM CDT DTL Predicted Range 25-410 mg/24 h 11/29/2023 2:43 PM CDT DTL Urine (Urine, Straight Catheter) 11/29/2023 11:41 AM CDT 11/29/2023 1:37 PM CDT Don Null M.D., M.S. LAB URINE ORDE HEIDIALEXI [facility] [address] [place] 200 [place] [address] * SD PANCHO PST VOID RESID US NON IMG, SD UROFLOWMETRY CMPLX, SD CYSTOMETROGRAM COMPLEX (11/29/2023 11:15 AM CDT) Narrative Don Null M.D., M.S. - 11/29/2023 11:15 AM CDT Harika Bardales M.D. ? 11/29/2023 ??4:00 PM OBG Urodynamic Studies Performed by: Don Null M.D., M.S. Authorized by: Don Null M.D., M.S. ?? Care team members present 1. Sherine Norman PROCEDURE DETAILS: Procedures: Combined (CMG + Uro) Equipment used: calibrated electronically Cough stress test: negative ?? Interpretation: not interpretable due to voided volume <200 mL ?? Uroflow voided volume (mL): 50 Uroflow post-void residual (mL): 215 (UA and Culture Sent) Uroflow postvoid residual measured by: catheter ?? Volume infused (mL): 400 Detrusor activity: stable during filling ?? Support of significant prolapse: yes ?? Valsalva-related leakage: present (Lying, Sitting, Standing) ?? Cough-related leakage: present (Lying, Sitting, Standing) ?? Volume of stress urinary incontinence: large ?? Repeat Uroflow: yes ?? Cough stress test: positive ?? Repeat Uroflow voided volume (mL): 10 (+ 200 mL bathroom hat without support) Repeat Uroflow post-void residual (mL): 200 Repeat Uroflow post-void residual measured by: catheter Uroflow: incomplete bladder emptying ?? Uroflow comment: unable to interpret due to low voided volume Cystometry: stress urinary incontinence and no urodynamic evidence of detrusor overactivity ?? The following procedures were performed during this urodynamic study: ?? Bladder irrigation installation, post-void residual - catheter, post-void residual - ultrasound and complex uroflow CONSENT Consent obtained: verbal Consent given by: patient The benefits, risks and alternatives to the procedure and the potential need for sedation or anesthesia as well as the names, roles, and responsibilities of healthcare team members performing significant interventional tasks were discussed with the patient and/or decision maker. [employer] All relevant documentation and testing were reviewed and available. All required blood products, implants, devices and or special equipment were made available as applicable. Pre-procedure verification was conducted and the correct site was marked if required. A fire risk and smoke assessment were done as applicable. The procedural time-out to verify correct patient, correct side/site, and procedure was conducted prior to performing the procedure and confirmed in a procedural pause. PRE-PROCEDURE DETAILS: ??Indications: urinary incontinence and prolapse ?Appropriate hand hygiene, gown, cap, mask, protective eyewear, sterile gloves, skin preparation, sterile drape, and strict aseptic technique were utilized as applicable for the procedure.: yes ?Site preparation: ??Povidone-iodine SEDATION / ANESTHESIA Anesthesia method: none POST-PROCEDURE DETAILS ?? Procedure completed successfully: yes ?? Complications: no apparent complications Comments Impression: 1. Low volume uroflow, unable to be interpreted 2. Present evidence of large volume stress urinary incontinence 3. No evidence of detrusor overactivity 4. Incomplete bladder emptying (PVR 215, 200 ml) Please correlate clinically. Don Null M.D., M.S. OB GYNE ORDERA BLES from Last 3 Months
--- OUTSIDE RECORDS SUMMARY | 2023-12-06 09:38 | XMS_ITS | Referral Summary ---
Author Organization [facility] Address [address] [place] [address] Care Team Providers Care Adjunct Professor Of English Name Role Phone Unavailable Primary Care Provider Unavailabl e Source Comments Patient records contain information from all sites at [facility]. For routine questions regarding patient records, call [phone] during business hours, M-F 8:00 AM - 5:00 PM Central Time. Record requests for emergency care only can be directed to [phone] at any time.[facility] Encounters Date Type Department Care Team Description 11/29/2023 11:15 AM CDT Procedure visit Department of Obstetrics and Gynecology, Division of Urogynecology in [place], [place] [address] [place] [phone] Don Null M.D., M.S. Cystocele Midline (Primary Dx); Incontinence Urinary Stress And Urge 11/29/2023 1:00 PM CDT Comprehensive Visit Department of Obstetrics and Gynecology, Division of Urogynecology in [place], [place] [address] [place] [phone] Don Null M.D., M.S. Incontinence Urinary Stress And Urge (Primary Dx); Overactive Bladder; Atrophy Pelvic Muscle Disuse; Cervical Stump Prolapse; Atrophy Vagina Due To Estrogen Deficiency; Parkinsonism Unspecified (HCC) 11/27/2023 1:15 PM CDT Clinical Communication Virtual Review in [place], [place] 200 [place] [address] Pre-visit Intake 11/26/2023 Documentation Department of Obstetrics and Gynecology, Division of Urogynecology in [place], [place] [address] [place] [address] Franc Perez R.N. from Last 3 Months Allergies Active Allergy Reactions Criticality Noted Date [...] Absence Of Both Cervix And Uterus 06/03 Social History Tobacco Use Types Packs/Day Years Used Date Smoking Tobacco: Never Passive Smoke Exposure: Never Smokeless Tobacco: Never [facility] Utilities Answer Date Recorded In the past [...] your living situation today? I have a [facility] place to live 11/27/2023 Sex and Gender [...] 11/29/2023 1:05 PM CDT Plan of Treatment Not on file Procedures Procedure Name Priority Date/Time Associated Diagnosis [...] Cystocele Midline Incontinence Urinary Stress And Urge [place] CYSTOMETROGRAM COMPLEX Routine 11/29/2023 11:15 AM CDT Cystocele Midline Incontinence Urinary Stress And Urge [place] UROFLOWMETRY CMPLX Routine 11/29/2023 11:15 AM CDT Cystocele Midline Incontinence Urinary Stress And Urge [place] PANCHO PST VOID RESID US NON IMG [...] CDT Don Null M.D., M.S. LAB URINE ORDJohnna GORDONALEXI Performing Organization Address [facility] de Phone Number [facility] [address] 200 [place] [address] * Microscopic Automated (11/29/2023 11:41 AM CDT) Microscopy Normal 11/29/2023 2:31 PM CDT DTL RBC <3 <3 /hpf 11/29/2023 2:31 PM CDT DTL WBC None Seen /hpf 11/29/2023 2:31 PM CDT DTL Comment: ----REFERENCE VALUE---- <4 ??(Males) <11 (Females) Urine 11/29/2023 11:4 1 AM CDT 11/29/2023 1:38 PM CDT Don Null M.D., M.S. LAB URINE ORDJohnna MIMA Performing Organization Address [facility] de Phone Number [facility] 200 [place], [place] [phone] [place] [address] 200 [place] [address] * Bacterial Culture, Aerobic + Susceptibility, Urine (11/29/2023 11:41 AM CDT) Urine Culture No growth after 1 day of incubation. 11/30/2023 8:07 AM CDT DTL Urine (Urine, Straight Catheter) 11/29/2023 11:41 AM CDT 11/29/2023 2:36 PM CDT Comment:Specimen Source Site : Urine Don Null M.D., M.S. LAB MICROBIOLO GY - GENERAL ORDERABLES Performing Organization Address [facility]/ZIP Co de Phone Number [facility] 200 [place], [place] [address] 200 [place] [address] * pH, Urine (11/29/2023 11:41 AM CDT) pH, U 6.6 4.5 - 8.0 11/29/2023 2:4 3 PM CDT DTL Urine 11/29/2023 11:4 1 AM CDT 11/29/2023 1:38 PM CDT Don Null M.D., M.S. LAB URINE ORDJohnna GORDONALEXI Performing Organization Address City/[facility] Co de Phone Number [facility] 200 [place], [place] [address] 200 [place] [address] * Osmolality, Urine (11/29/2023 11:41 AM CDT) Pathologist [facility] Osmolality, U 560 150 - 1150 mOsm/kg 11/29/2023 2:43 PM CDT DTL Urine 11/29/2023 11:4 1 AM CDT 11/29/2023 1:38 PM CDT Don Null M.D., M.S. LAB URINE ORDJohnna GORDONALEXI Performing Organization Address City/[facility]/ZIP Co de Phone Number [facility] [address] [place], [place] [phone] [place] [address] 200 [place] [address] * Urinalysis, with Microscopic: Urine, Straight Catheter [...] Don Null M.D., M.S. LAB URINE ORDE MIMA [facility] 200 [place] [address], [facility] [address] [address] * [place] PANCHO PST VOID RESID US NON IMG, [place] UROFLOWMETRY CMPLX, [place] CYSTOMETROGRAM COMPLEX (11/29/2023 11:15 AM CDT) Narrative [...] Don Null M.D., M.S. OB GYNE ORDERA BLEJose from Last 3 Months
--- OUTSIDE RECORDS SUMMARY | 2023-12-06 09:39 | XMS_ITS | Encounter Summary ---
Author Organization [facility] Address [address] [place] [address] Care Team Providers Care Director Case Name Role Phone Unavailable Primary Care Provider Unavailabl e Encounter Details Date Type Department Care Team (Late st Contact Info) Description 11/26/2023 Documentation Department of Obstetrics and Gynecology, Division of Urogynecology in [place], [place] [address] [place] [phone] Franc Perez, R.N. [address] [place] [phone] Social History Tobacco Use Types Packs/Day Years Used Date Smoking Tobacco: Never Assessed [facility] Utilities Answer Date Recorded In the [...] money to buy more. Never true 11/27/19 24 Within the past 12 months, t he [...] your living situation today? I have a [facility] place to live 11/27/2023 Sex and Gender Information Value Date Recorded Sex Assigned at Female 11/27/2023 7:44 PM CDT Gender Identity Female 11/27/2023 7:44 PM CDT Sexual Orientation Straight 11/27/2023 7: 44 PM CDT documented as of this encounter Progress Notes * Franc Perez, R.N. - 11/26/2023 11:22 AM CDT PREAPPOINTMENT RECORD REVIEW. Information collected has not been verified by the patient. Patient not seen. Patient will be seen by Don Null MD on 11/29/2023. ANTICIPATED SURGICAL DATE/PROCEDURE: REFERRING PROVIDER: Purvi Holden M.D DIAGNOSIS: Cystocele [N81.10] Incontinence Urinary Stress And Urge HISTORY OF PRESENT ILLNESS: [facility]: 04/01/2023 Provider- Dr. Purvi Holden MD HPI: Becca is a 57 year old woman who presents for follow-up of vulvar irritation. She was last seen 02/27/23. She has stage 2 prolapse of the bladder and cervical stump. She also has mixed urinary incontinence. At her visit 02/27/23, she was fit for a size #2 incontinence ring pessary. Size #3 was also ordered. These pessaries have not yet arrived. Pertinent testing has included: UA and UC 02/27/23: >100,000 CFU/ml of Staph epidermitis PVR: 40 cc Other pertinent treatment has included: 1) Vaginal Estrace cream, prescribed 02/28/24. She thought this caused irritation in her groin, Yaneth recommended application of zinc oxide to the skin of her groin on the nights that she was to use the vaginal Estrace cream. This has been quite helpful. She wonders if some of the irritation in this area isn't related to the incontinence pads she has to use. 2) Macrobid for treatment of UTI as noted above. She did not have any at time of diagnosis. She hashad a few episodes of larger amounts of incontinence on a recent vacation. From my note 02/27/23: PSH: notable for laparoscopic supracervical hysterectomy at age 48 for menorrhagia in the setting of fibroids. Ovaries retained. She did have spotting after hysterectomy, cyclic, with cessation at age 56. She also reports placement of some type of mesh at that time. 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 2 vaginal births, one with severe laceration. Hx of rapid labor. She has no hx of abnormal Pap No hx of STI She is infrequently sexually active PMH: Included L tendonitis Social Hx: She works in [place]. Lives in [place]. She is . Exam: Narrative General: No acute distress Psych: Alert and orientated x3, full affect HEENT: Normocephalic, atraumatic Pelvic Exam: Mons normal, clitoris normal, urethral meatus normal. Labia minora and majora normal in appearance bilaterally. There are scattered skin tags and seborrheic keratoses over the labia and in the groin. The skin is coated with zinc oxide. Assessment and Plan: 1) UTI: Staph Epidermidis. Treated with Macrobid. Continuing urge incontinence episode. Repeat Urinalysis and culture today. 2) Mixed Urinary Incontinence: Physical Therapy Started 11/07. No urinary retention. PVR 40 cc. Continue vaginal Estrace cream. 3) Pelvic Organ Prolapse: Stage 2 Cystocele. To manage with pessary a noted above. She will return for placement of her pessary and training in insertion and removal. 4) Cervical Stump Prolapse: As Above 5) Vulvar Irritation: Likely contact irritation from incontinence pad or other scented products. Her skin appears healthy today. We dicussed vulvar skin care guidelines at length. She is to avoid anyscented products. I recommended cotton only incontinence pads. Purvi Holden MD 08/19/2023: Dr. Purvi Holden MD HPI: Pessary Fitting The patient is a 57 year old woman who presents for follow-up of stage 2 prolapse, stage 2 cystocele, and Stage 2 prolapse of cervical stump. She also has mixed incontinence. She was fit for a size 2incontinence ring pessary on 02/27/2023. These pessaries have finally arrived, and she comes today for pessary insertion. Regarding her mixed incontinence, pertinent testing has included a urine culture on 02/25/2023 showing greater than 100,000 CFU's per cc of staph epidermidis. PVR was 40 cc on that day. Pertinent treatment has included vaginal Estrace cream, and Macrobid for treatment of UTI. She does have a history of supracervical hysterectomy with some sort of mesh placement at [facility] in 2013. We have requested operative reports, but have not received them. The patient has been diagnosed with Parkinson's disease since her last visit, which has been impacting her movements. She layton been undergoing physical therapy to help with her motion. Despite these challenges, she is able to descend stairs with the aid of a handrail. She has been utilizing the vaginal estrogen cream and has not experienced any complications. However, she continues to experience urinary incontinence with coughing and sneezing. If she waits too long to urinate, she will experience significant incontinence which is sometimes more than a drip. Attempted Procedures: Attempted placement of pessaries. First, size #2 incontinence ring pessary was cleansed, lubricated and inserted. Becca was able to remove and insert this. However, after going to the bathroom with it in place, it was uncomfortably low in the vagina. This was then removed. Next, a size #3 ring pessary with support was cleansed, lubricated and inserted. After only a short time, this fell out of the vagina. Assessment and Plan: 1) Mixed stress and urge incontinence. Physical therapy started on 11/08/2023. Using Vaginal EstraceCream. Unable to fit incontinence ring pessary. 2) POP- Stage 2 Cystocele, Stump Prolapse. Hx of unknown pelvic mesh placement at [facility] in 2013. She is now interested in surgical treatment of incontinence and prolapse. Given her history of pelvic surgery with mesh, I opted to refer her to urogynecology. We discussed the etiologies and multiple treatment options for her condition. Purvi Holden MD CELL OPERATION SUPERVISOR/PAP HISTORY: (vaginal) PAST MEDICAL HISTORY: Past Medical History: Diagnosis Date Allergy Seasonal Hyperlipidemia Hypertension NOS Migraine Headache Neuropathy Peripheral Pain Low Back Chronic Parkinsonism Unspecified (HCC) Polyp Colon Adenomatous PAST SURGICAL HISTORY: Past Surgical History: Procedure Laterality Date HYSTERECTOMY supracervical, use of mesh NOSE SURGERY MEDICATIONS: Atenolol Biotin Vitamin D3 Duloxetine Pepcid AC Fluticasone propionate intranasal spray HCTZ Zofran Potassium Simvastatin Sumatriptan succinate ALLERGIES: Amlodipine- Vomiting Cephalexin- Not listed Lisinopril- Vomiting SOCIAL HISTORY: TOBACCO USE: Never Smoker FAMILY HISTORY: Aunt with Breast Cancer Maternal Grandfather with Breast Cancer Son with Testicular Cancer BMI: TESTING/IMAGING/PATHOLOGY: UDS: Simple UDS + Uroflow @11:15 CYSTO: MRI CT U/S CxR ECG JEFF: Needed if surgery DATE: Hg: . WBC: PLT: GL: Cr: CA 125: Albumin: hCG: A1C: Na: K: T&S: documented in this encounter Plan of Treatment Not on file documented as of this encounter Visit Diagnoses Not on filedocumented in this encounter
--- OUTSIDE RECORDS SUMMARY | 2023-12-06 09:39 | XMS_ITS | Clinical Summary ---
Author Organization [facility] [employer] Address [place], [place] [address] Care Team Providers Care Continuing Education Specialist Name Role Phone Margaret Bolden MD Primary [...] durable medical equipment (DME)Indications:Plant ar fasciitis, left [id number] Plantar Fasciitis,Night Splint, Medium 1 Each 08/23/2021 [...] 2) 10/12/2015 COVID-19 vaccine series (2022- season) 2023 02/28/2021, 07/02/2020, 06/11/2020 Influenza for age 50-64 11/17/2023 Pap test for age 21-65 03/31/2024 , 03/31/2021 Pneumococcal series for age 6-64 Aged Out No longer eligible b ased on patient's age to complete this topic Procedures Procedure Name Priority Date/Time Associated Diagnosis Comments HPV HIGH RISK Routine 03/31/2021 12:00 PM ACCOUNTS RECEIVABLE CLERK from Last 3 Months or Most Recently Relevant to Health Maintenance Results * HPV HIGH RISK (03/31/2021 12:00 PM ACCOUNTS RECEIVABLE CLERK) TYPE 16 Negative Negative 04/04/2021 2:16 PM ACCOUNTS RECEIVABLE CLERK [facility] TYPE 18 Negative Negative 04/04/2021 2:16 PM ACCOUNTS RECEIVABLE CLERK [facility] OTHER HIGH RISK TYPES Negative Negative 04/04/2021 2:16 PM ACCOUNTS RECEIVABLE CLERK [facility] Other (Other) 03/31/2021 12: 00 PM ACCOUNTS RECEIVABLE CLERK 04/03/2021 7:39 AM ACCOUNTS RECEIVABLE CLERK [facility] - 04/04/2021 2:16 PM ACCOUNTS RECEIVABLE CLERK HPV types 16, 18, 31, 33, 35, 39, 45, 51, 52, 56, 58, 59, 66 and 68 DNA were undetectable or below the pre-set threshold. Methodology: Kendall Yasmine 4800 HPV Test Margaret Bolden MD MICROBIOLOGY [facility] [address] [place] [address], from Last 3 Months or Most Recently Relevant to Health Maintenance Care Teams Continuing Education Specialist Relationship Specialty Start Date End Date Margaret Bolden MD [address] [place] [address] PCP - General Family Practice 08/23/21
--- OUTSIDE RECORDS SUMMARY | 2023-12-06 09:39 | XMS_ITS | Encounter Summary ---
Author Organization [facility] Address [address] [place] [address] Care Team Providers Care Corrosion Control Technician Name Role Phone Unavailable Primary Care Provider Unavailabl e Reason for Referral * Physical Therapy (Routine) - Authorized Specialty Diagnoses / Procedures Referred By Lowell cox Referred To Contact Physical Therapy Diagnoses Incontinence Urinary Stress And Urge Overactive Bladder Atrophy Pelvic Muscle Disuse Don Null M.D., M.S. [address] [place] [address] Referral ID Status Reason Start Date Expiration Date V isits Requested Visits Authorized [id number] Authorized Other 11/29/2023 05/30/2025 1 1 Reason for Visit * Appointment Request (Routine) - Closed Specialty Diagnoses / Procedures Referred By Lowell cox Referred To Contact Obstetrics and Gynecology Diagnoses Cystocele Incontinence Urinary Stress And Urge Purvi Holden M.D. [address] [place] [address] Referral ID Status Reason Start Date Expiration Date Visits Re quested Visits Authorized [id number] Closed 08/27/2023 08/26/2024 1 1 Encounter Details Date Type Department Care Team (Latest Contact Info) Description 11/29/2023 1:00 PM CDT Comprehensive Visit Department of Obstetrics and Gynecology, Division of Urogynecology in [place], [place] [address] [place] [phone] Don Null M.D., M.S. [address] [place] [address] Incontinence Urinary Stress And Urge (Primary Dx); Overactive Bladder; Atrophy Pelvic Muscle Disuse; Cervical Stump Prolapse; Atrophy Vagina Due To Estrogen Deficiency; Parkinsonism Unspecified (HCC) Social History Tobacco Use Types Packs/Day Years Used Date Smoking Tobacco: Never Passive Smoke Exposure: Never Smokeless Tobacco: Never [facility] Utilities Answer Date Recorded In the past 12 months has th e electric, gas, oil, or water [employer] threatened to shut off services in your [...] your living situation today? I have a [facility] place to live 11/27/2023 Sex and Gender Information Value Date Recorded Sex Assigned at Female 11/27/2023 7:44 PM CDT Gender Identity Female 11/27/2023 7:44 PM CDT Sexual Orientation Straight 11/27/2023 7: 44 PM CDT documented as of this encounter Last Filed Vital Signs Vital Sign Reading [...] Mass Index 36.23 11/29/2023 1:05 PM CDT documented in this encounter Consult Notes * Don Null M.D., M.S. - 11/29/2023 1:00 PM CDT Images from the original note were not included. Division of Urogynecology SUBJECTIVE REFERRING PROVIDER Purvi Holden M.D. I reviewed documentation regarding this patient. REASON FOR VISIT Mixed urinary incontinence, pelvic organ prolapse HISTORY OF PRESENT CONDITION Ms. Roldan is a 58 y.o. (vaginal) who has Parkinson's disease and ongoing bladder dysfunction. Her gynecologic concerns are as follows: Pelvic Organ Prolapse: She denies specific symptoms of pelvic organ prolapse at this point in time. Urinary Symptoms: Her urinary symptoms are most bothersome to her. She endorses urinary urgency andfrequency and is up 1 or 2 times at night to empty the bladder. She does endorse urge incontinence symptoms daily basis. She does have some stress incontinence as well, though this is more on a weekly basis. She has a sense of incomplete bladder emptying and uses position changes and Valsalva to help augment bladder emptying. Triggers for urgency include a rizvi in the door a change in position. She consumes 30 or 40 oz of water daily along with about 20 oz of coffee. She has done some pelvic floor physical therapy and has seen some improvement in symptoms. She also has a home pelvic muscle stimulator that she purchased on [address] and she has not use this consistently. Bowel Function: In terms her bowels, she tends towards constipation but utilizes gummy fiber supplements with good success. Sexual Function: She is sexually active and endorses some I will vaginal dryness but denies dyspareunia HISTORY REVIEW Medical History: Past Medical History: Diagnosis Date Allergy Seasonal Hyperlipidemia Hypertension NOS Migraine Headache Neuropathy Peripheral Pain Low Back Chronic Parkinsonism Unspecified (HCC) Polyp Colon Adenomatous Surgical History: As noted in HPI. 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 Normal urethra, no masses. Cough stress test negative. Normal introitus.Vaginal tissue is atrophic. Cervix exam normal. Anterior wall: stage 1. Uterus/apex: stage 3. Posterior wall: well-supported. Uterus exam limited by body habitus. Adnexa exam limited by body habitus.No pain with palpation of pelvic floor muscles. Kegel strength is 1/5. URODYNAMIC TESTING: She underwent a uroflow and initially she was unable to empty very well. Her cough stress test was negative. She had stress incontinence that was large in volume with support of her prolapse on simple cystometry, though her detrusor was stable during filling. She had an elevatedpostvoid residual with a voided volume of approximately 210 mL and a postvoid residual of 200 mL. This is not typical for her. She notes that she was seen by her local cylinder dyer and they evaluatedher with a PVR and she was told it was within normal range ASSESSMENT / PLAN Mixed urinary incontinence, urge predominant Overactive bladder syndrome Questionable incomplete bladder emptying Pelvic organ prolapse (cervix, prior supracervical hysterectomy; mild cystocele) Pelvic muscle weakness Vaginal atrophy, continue estrogen, apply some to urethra Parkinson's disease I discussed the above-mentioned diagnoses with the patient and her . Her primary concern center around her mixed urinary incontinence symptoms, primarily her OAB symptoms. We reviewed treatment options in terms of 1st, 2nd, and 3rd line therapies. She is using some vaginal estrogen cream, though I have asked her to increase to 3 nights per week and apply some directly to the urethra. She has also done some pelvic floor physical therapy and I think continuing this would be reasonable given that she did see improvement in symptoms and her pelvic floor muscles continue to be fairly weak. She also has a home pelvic floor muscle stimulator and we reviewed settings that would pertain specific to her bladder symptoms and she will use this as an adjunct to pelvic floor physical therapy. She was provided with an additional prescription to continue pelvic floor PT. Her stress incontinence is less bothersome to her at this point in time She does have some questionable incomplete bladder emptying. For us today she had an elevated postvoid residual, however, at her local cylinder dyer's office, her PVR was within normal range. I suspect she empties her bladder well, though we would like to document a normal PVR if we proceed with additional therapies for OAB, including medication or 3rd line therapies. We did discuss 2nd and 3rd line therapies. With her Parkinson's, we would have to evaluate if any of the traditional anticholinergic medications would interfere with her disease process or current medications. She would likely ian candidate for a beta 3 agonist medication and could do a 1 month Gemtesa trial. We will hold on proceeding with any medication management at this point. She does have some pelvic organ prolapse,, primarily of the apex. She has had a supracervical hysterectomy and primarily has prolapse of her cervix. I can not appreciate a substantial cystocele on myexamination or rectocele. We discussed that I do not suspect her prolapse is substantially contributing to her urinary symptoms. She does have Parkinson's disease and this could be contributing to some of her urinary symptoms aswell. Plan: Resumption of home pelvic floor stimulator Continue pelvic floor physical therapy Application of estrogen cream to urethra, in addition to vaginal application Consideration for future OAB meds; possible Gemtesa trial, with Parkinson's will explore anticholinergic options Observation of pelvic organ prolapse Minimal symptoms, may consider pessary trial here at [facility] with more pessary options. This would primarily be to see if this helps urinary symptoms Signed: 11/29/2023 Don Null M.D., M.S. BILLING Total time: 60 minutes Greater than 50% of the time spent counseling. documented in this encounter Plan of Treatment Not on file documented as of this encounter Visit Diagnoses Diagnosis Incontinence Urinary Stress And Urge- Primary Overactive Bladder Atrophy Pelvic Muscle Disuse Cervical Stump Prolapse Atrophy Vagina Due To Estrogen Deficiency Parkinsonism Unspecified (HCC) documented in this encounter
--- OUTSIDE RECORDS SUMMARY | 2023-12-06 09:39 | XMS_ITS | Encounter Summary ---
Author Organization [facility] Address [address] [place] [address] Care Team Providers Care Online Affiliate Marketing Manager Name Role Phone Unavailable Primary Care Provider Unavailabl e Reason for Visit * Reason Onset Date Comments Pre-visit Intake 11/27/2023 Encounter Details Date Type Department Care Team (Latest Contact Info) Description 11/27/2023 1:15 PM CDT Clinical Communication Virtual Review in [place], [place] [address] [place] [phone] Pre-visit Intake Social History Tobacco Use Types Packs/Day Years Used Date Smoking Tobacco: Never Passive Smoke Exposure: Never Smokeless Tobacco: Never [facility] Utilities Answer Date Recorded In the [...] your living situation today? I have a [facility] place to live 11/27/2023 Sex and Gender Information Value Date Recorded Sex Assigned at Female 11/27/2023 7:44 PM CDT Gender Identity Female 11/27/2023 7:44 PM CDT Sexual Orientation Straight 11/27/2023 7: 44 PM CDT documented as of this encounter Plan of Treatment Not on file documented as of this encounter Visit Diagnoses Not on filedocumented in this encounter
--- OUTSIDE RECORDS SUMMARY | 2023-12-06 09:39 | XMS_ITS | Encounter Summary ---
Author Organization [facility] Address [address] [place] [address] Care Team Providers Care Industrial Boilermaker Name Role Phone Unavailable Primary Care Provider Unavailabl e Reason for Visit * Outpatient (Routine) - Closed Specialty Diagnoses / Procedures Referred By Lowell cox Referred To Contact Diagnoses Cystocele Midline Incontinence Urinary Stress And Urge Procedures OBG Urodynamic Studies Don Null M.D., M.S. [address] [place] [phone] [facility] Referral ID Status Reason Start Date Expiration Date Visits Re quested Visits Authorized [id number] Closed 08/29/2023 08/28/2024 1 1 Encounter Details Date Type Department Care Team (Latest Contact Info) Description 11/29/2023 11:15 AM CDT Procedure visit Department of Obstetrics and Gynecology, Division of Urogynecology in [place], [place] [address] [place] [phone] Don Null M.D., M.S. [address] [place] [phone] Cystocele Midline (Primary Dx); Incontinence Urinary Stress And Urge Social History Tobacco Use Types Packs/Day Years Used Date Smoking Tobacco: Never Passive Smoke Exposure: Never Smokeless Tobacco: Never [facility] Utilities Answer Date Recorded In the past 12 months has e electric, gas, oil, or water company [...] your living situation today? I have a [facility] place to live 11/27/2023 Sex and Gender Information Value Date Recorded Sex Assigned at Female 11/27/2023 7:44 PM CDT Gender Identity Female 11/27/2023 7:44 PM CDT Sexual Orientation Straight 11/27/2023 7: 44 PM CDT documented as of this encounter Procedure Notes * Harika Bardales M.D. - 11/29/2023 11:15 AM CDTAssociated Order(s): OBG Urodynamic Studies Pre-Procedure Diagnose(s): Cystocele Midline; Incontinence Urinary Stress And Urge Post-Procedure Diagnose(s): Cystocele Midline; Incontinence Urinary Stress And Urge OBG Urodynamic Studies Performed by: Don Null M.D., M.S. Authorized by: Don Null M.D., M.S. Care team members present 1. Sherine Norman Jose PROCEDURE DETAILS: Procedures: Combined (CMG + Uro) Equipment used: calibrated electronically Cough stress test: negative Interpretation: not interpretable due to voided volume <200 mL Uroflow voided volume (mL): 50 Uroflow post-void residual (mL): 215 (UA and Culture Sent) Uroflow postvoid residual measured by: catheter Volume infused (mL): 400 Detrusor activity: stable during filling Support of significant prolapse: yes Valsalva-related leakage: present (Lying, Sitting, Standing) Cough-related leakage: present (Lying, Sitting, Standing) Volume of stress urinary incontinence: large Repeat Uroflow: yes Cough stress test: positive Repeat Uroflow voided volume (mL): 10 (+ 200 mL bathroom hat without support) Repeat Uroflow post-void residual (mL): 200 Repeat Uroflow post-void residual measured by: catheter Uroflow: incomplete bladder emptying Uroflow comment: unable to interpret due to low voided volume Cystometry: stress urinary incontinence and no urodynamic evidence of detrusor overactivity The following procedures were performed during this urodynamic study: Bladder irrigation installation, post-void residual - catheter, [...] confirmed in a procedural pause. PRE-PROCEDURE DETAILS: Indications: urinary incontinence and prolapse Appropriate hand hygiene, gown, cap, mask, protective eyewear, sterile gloves, skin preparation, sterile drape, and strict aseptic technique were utilized as applicable for the procedure.: yes Site preparation: Povidone-iodine SEDATION / ANESTHESIA Anesthesia method: none POST-PROCEDURE DETAILS Procedure completed successfully: yes Complications: no apparent complications Comments Impression: 1. Low volume uroflow, unable to be interpreted 2. Present evidence of large volume stress urinary incontinence 3. No evidence of detrusor overactivity 4. Incomplete bladder emptying (PVR 215, 200 ml) Please correlate clinically. GYNSURG Exam Amb documented in this encounter Plan of Treatment Not on file documented as of this encounter Procedures Procedure Name Priority Date/Time Associated Diagnosis Comments DIPSTICK, U Routine 11/29/2023 11:41 AM CDT MICROSCOPIC AUTOMATED Routine 11/29/2023 11:41 AM CDT BACTERIAL CULTURE, AEROBIC + SUSC, URINE Routine 11/29/2023 11:41 AM CDT Cystocele Midline Incontinence Urinary Stress And Urge PH, U Routine 11/29/2023 11:41 AM CDT OSMOLALITY, U Routine 11/29/2023 11:41 AM CDT URINALYSIS WITH MICROSCOPIC Routine 11/29/2023 11:41 AM CDT Cystocele Midline Incontinence Urinary Stress And Urge NH CYSTOMETROGRAM COMPLEX Routine 11/29/2023 11:15 AM CDT Cystocele Midline Incontinence Urinary Stress And Urge NH UROFLOWMETRY CMPLX Routine 11/29/2023 11:15 AM CDT Cystocele Midline Incontinence Urinary Stress And Urge NH PANCHO PST VOID RESID US NON IMG Routine 11/29/2023 11:15 AM CDT Cystocele Midline Incontinence Urinary Stress And Urge documented in this encounter Results * Dipstick, Urine (11/29/2023 11:41 AM [...] Don Null M.D., M.S. LAB URINE JC GORDONALEXI Performing Organization Address City/[facility]/[place] [address] * pH, Urine (11/29/2023 11:41 AM CDT) pH, U 6.6 4.5 - 8.0 11/29/2023 2:4 3 PM CDT DTL Urine 11/29/2023 11:4 1 AM CDT 11/29/2023 1:38 PM CDT Don Null M.D., M.S. LAB URINE JC GUILLERMO Performing Organization Address City/[facility] Co de Phone Number [facility] 200 [place] [address] * Microscopic Automated (11/29/2023 11:41 AM CDT) Microscopy Normal 11/29/2023 2:31 PM CDT DTL RBC <3 <3 /hpf 11/29/2023 2:31 PM CDT DTL WBC None Seen /hpf 11/29/2023 2:31 PM CDT DTL Comment: ----REFERENCE VALUE---- <4 ??(Males) <11 (Females) Urine 11/29/2023 11:4 1 AM CDT 11/29/2023 1:38 PM CDT Don Null M.D., M.S. LAB URINE JC GORDONALEXI Performing Organization Address City/[facility] Co de Phone Number [facility] 200 [place], [place] [address] [place] [address] 200 [place] [address] * Osmolality, Urine (11/29/2023 11:41 AM CDT) Osmolality, U 560 150 - 1150 mOsm/kg 11/29/2023 2:43 PM CDT DTL Urine 11/29/2023 11:4 1 AM CDT 11/29/2023 1:38 PM CDT Don Null M.D., M.S. LAB URINE JC MIMA Performing Organization Address [facility] Co de Phone Number [facility] 200 [place] [address], [facility] 200 [place] [address] * Urinalysis, with Microscopic: Urine, Straight Catheter [...] Don Null M.D., M.S. LAB URINE ORDE RABLES Performing Organization Address [facility] de Phone Number [facility] [address] 200 [place] [address] * Bacterial Culture, Aerobic + Susceptibility, Urine (11/29/2023 11:41 AM CDT) Urine Culture No growth after 1 day of incubation. 11/30/2023 8:07 AM CDT DTL Urine (Urine, Straight Catheter) 11/29/2023 11:41 AM CDT 11/29/2023 2:36 PM CDT Comment:Specimen Source Site : Urine Don Null M.D., M.S. LAB MICROBIOLO GY - GENERAL ORDERABLES Performing Organization Address [facility] de Phone Number [facility] 200 [place] [address] * NH PANCHO PST VOID RESID US NON IMG, NH UROFLOWMETRY CMPLX, NH CYSTOMETROGRAM COMPLEX (11/29/2023 11:15 AM CDT) Narrative [...] clinically. Don Null M.D., M.S. OB GYNE BOONE WELCH documented in this encounter Visit Diagnoses Diagnosis Cystocele Midline- Primary Incontinence Urinary Stress And Urge documented in this encounter
--- OUTSIDE RECORDS SUMMARY | 2023-12-06 09:39 | XMS_ITS | Clinical Summary ---
Author Organization [facility] Address [address] [place] [address] Care Team Providers Care Club Car Attendant Name Role Phone Shoshana Harding MD Primary Care Provider [phone] Source Comments You are receiving this document as you are listed as the primary care provider,follow-up provider, or the patient has been referred to you for consultation.This is in compliance with the Medicare and[facility]d EHR Incentive Program,which states Providers who transition their patient to another setting of careor provider of care or refers their patient to another provider of care shouldprovide summary care record for each transition of care or referral. [email or web address] Allergies No known active allergies Medications Medication [...] QIV 12/22/19 17 Influenza IIV4 (Quadrivalent) 0.5mL (61980) 11/16 Pfizer Monovalent 12+ Purple Top 02/28/2021,06/16,06/11/2020 [...] Mammogram 08/07/2014 08/07/2013 COVID-19 Vaccine ( season) 2023 02/28/2021, 07/02/2020, 06/11/2020 Influenza (#1) 2023 03/24/2021, [...] age to complete this topic Care Teams Club Car Attendant Relationship Specialty Start Date End Date Shoshana Harding MD [address] [place] [address] PCP - General Internal Medicine 05/24/22
--- OUTSIDE RECORDS SUMMARY | 2023-12-06 09:39 | XMS_ITS | Encounter Summary ---
Author Organization [facility] Address [address] [place] [address] Care Team Providers Care Mechanical Assembler Name Role Phone Unavailable Primary Care Provider Unavailabl e Reason for Referral * Outpatient (Routine) - Closed Specialty Diagnoses / Procedures Referred By Lowell cox Referred To Contact Diagnoses Cystocele Midline Incontinence Urinary Stress And Urge Procedures OBG Urodynamic Studies Don Null M.D., M.S. [address] [place] [phone] [facility] Referral ID Status Reason Start Date Expiration Date Visits Re quested Visits Authorized [id number] Closed 08/29/2023 08/28/2024 1 1 Encounter Details Date Type Department Care Team (Late st Contact Info) Description 08/29/2023 Orders Only Department of Obstetrics and Gynecology, Division of Urogynecology in [place], [place] [address] [place] [phone] Franc Perez, R.N. [address] [place] [phone] Cystocele Midline (Primary Dx); Incontinence Urinary Stress And Urge Social History Tobacco Use Types Packs/Day Years Used Date Smoking Tobacco: Never Assessed Nutrition Answer Date Recorded Nutrition: EVOO Fat Source 13 10/12 Nutrition: Servings of Fruits/Vegetables per Day Not on file 10/13/2019 Dental Answer Date Recorded Dental: Regular Dentist Unknown 05/26/19 21 Sex and Gender Information Value Date Recorded Sex Assigned at Female 11/27/2023 7:44 PM CDT Gender Identity Female 11/27/2023 7:44 PM CDT Sexual Orientation Straight 11/27/2023 7: 44 PM CDT documented as of this encounter Plan of Treatment Not on file documented as of this encounter Results * NM PANCHO PST VOID RESID US NON IMG, NM UROFLOWMETRY CMPLX, NM CYSTOMETROGRAM COMPLEX (11/29/2023 11:15 AM CDT) Narrative [...] Midline- Primary Incontinence Urinary Stress And Urge Cystocele Midline- Primary Incontinence Urinary Stress And Urge documented in this encounter
--- NOTE | 2023-12-06 09:45 | CRLHL7_ITS ---
For Patients: As a result of the Cures Act, medical imaging exams and procedure reports are released immediately into your electronic medical record. You may view this report before your referring provider. If you have questions, please contact your health care provider. LEFT DIAGNOSTIC DIGITAL MAMMOGRAM WITH COMPUTER-AIDED DETECTION AND TOMOSYNTHESIS LEFT BREAST ULTRASOUND CLINICAL HISTORY: LEFT breast mass/asymmetry. COMPARISON: 11/11/2023 TECHNIQUE: Digital LEFT mammogram in two projections with computer-aided detection. Tomosynthesis was used in this interpretation. Real-time ultrasound imaging of LEFT breast with imaging documentation. BREAST COMPOSITION: The breast is heterogeneously dense, which may obscure small masses. FINDINGS: 3D spot compression CC/MLO LEFT breast mammogram images submitted. No architectural distortion. No suspicious calcifications. Decreased conspicuity of the previously noted asymmetric density. Targeted LEFT breast ultrasound performed at 12 o`clock, 3 cm from the nipple. In this location, there is a simple anechoic cyst with increased through-transmission at posterior depth measuring 11 x 6 x 8 mm. IMPRESSION: Simple cyst of LEFT breast at 12 o`clock, 3 cm from the nipple, measuring 11 mm. No suspicious findings. RECOMMENDATIONS: Routine annual bilateral screening mammography. Results and recommendations discussed with the patient. BI-RADS Category 2: Benign A lay language report of this examination will be provided to the patient. Dictated by Vasiliy Fountian MD @ 12/06/2023 12:24:05 PM CRL:[email or web address] RD/Dictated by: Vasiliy Fountain MD @ 12/06/2023 12:24:00 PM (Electronically Signed)
--- NOTE | 2023-12-06 10:15 | CRLHL7_ITS ---
For Patients: As a result of the Century Cures Act, medical imaging exams and procedure reports are released immediately into your electronic medical record. You may view this report before your referring provider. If you have questions, please contact your health care provider. PLEASE SEE LEFT DIAGNOSTIC MAMMOGRAM OF SAME DAY FOR COMBINED REPORT. CRL:[email or web address] RD/Dictated by: Vasiliy Fountain MD @ 12/06/2023 12:12:00 PM (Electronically Signed)
== END 2023-12-06 09:37 | disposition home or self-care (01) ==
LOC: MAMMO 09:37
PROVIDERS: PCP Internal Medicine; Visit Provider Internal Medicine
DX: N63.20 Unspecified lump in the left breast, unspecified quadrant (principal); N60.02 Solitary cyst of left breast; R92.8 Other abnormal and inconclusive findings on diagnostic imaging of breast
CPT/HCPCS: 76642; 77065; G0279

== ENCOUNTER 2024-01-27 09:50 | Outpatient (CLI) | payer BC, SELFPAY ==
--- OUTSIDE RECORDS SUMMARY | 2024-01-27 09:55 | XMS_ITS | Encounter Summary ---
Author Organization [facility] Address [address] [place] [address] Care Team Providers Care Ecommerce Marketing Specialist Name Role Phone Unavailable Primary Care Provider Unavailabl e Encounter Details Date Type Department Care Team (Late st Contact Info) Description 11/26/2023 Documentation Department of Obstetrics and Gynecology, Division of Urogynecology in [place], [place] [address] [place] [phone] Franc Perez, R.N. [address] [place] [phone] Social History Tobacco Use Types Packs/Day Years Used Date Smoking Tobacco: Never Assessed [facility] Utilities Answer Date Recorded In the [...] your living situation today? I have a [facility] place to live 11/27/2023 Comments Unknown Sex and Gender Information Value Date Recorded Sex Assigned at Female 11/27/2023 7:44 PM CDT Legal Sex Female 4:15 PM CDT Gender Identity Female 11/27/2023 7:44 PM CDT Sexual Orientation Straight 11/27/2023 7: 44 PM CDT documented as of this encounter Progress Notes * Franc Perez, RRandeeN. 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 2 vaginal births, one with severe laceration. Hx of rapid labor. She has no hx of abnormal Pap No hx of STI She is infrequently sexually active PMH: Included L tendonitis Social Hx: She works in [place]. Lives in [place]. She is . Exam: Narrative General: No [...] with some sort of mesh placement at [facility] in 2013. We have requested operative reports, [...] Hx of unknown pelvic mesh placement at [facility] in 2013. She is now interested in surgical treatment of incontinence and prolapse. Given her history of pelvic surgery with mesh, I opted to refer her to urogynecology. We discussed the etiologies and multiple treatment options for her condition. Purvi Holden MD CAR CHASER/PAP HISTORY: (vaginal) PAST MEDICAL HISTORY: Past Medical [...]
--- OUTSIDE RECORDS SUMMARY | 2024-01-27 09:55 | XMS_ITS ---
Author Organization [facility] Address [address] [place] [address] Care Team Providers Care Mileage Clerk Name Role Phone Unavailable Unavailable Unavailable Surgery Details Not on file Complications Check Surgery Details section. Procedure Estimated Blood Loss Check Surgery Details section. Procedure Findings Check Surgery Details section. Procedure Specimens Taken Check Surgery Details section.
--- OUTSIDE RECORDS SUMMARY | 2024-01-27 09:55 | XMS_ITS | Referral Summary ---
Author Organization [facility] Address [address] [place] [address] Care Team Providers Care Community Nutrition Educator Name Role Phone Unavailable Primary Care Provider Unavailabl e Source Comments Patient records contain information from all sites at [facility]. For routine questions regarding patient records, call [phone] during business hours, M-F 8:00 AM - 5:00 PM Central Time. Record requests for emergency care only can be directed to [phone] at any time.[facility] Encounters Date Type Department Care Team Description 11/29/2023 11:15 AM CDT Procedure visit Department of Obstetrics and Gynecology, Division of Urogynecology in [place], [place] [address] [place] [phone] Don Null M.D., M.S. Cystocele Midline (Primary Dx); Incontinence Urinary Stress And Urge 11/29/2023 1:00 PM CDT Comprehensive Visit Department of Obstetrics and Gynecology, Division of Urogynecology in [place], [place] [address] [place] [phone] Don Null M.D., M.S. Incontinence Urinary Stress And Urge (Primary Dx); Overactive Bladder; Atrophy Pelvic Muscle Disuse; Cervical Stump Prolapse; Atrophy Vagina Due To Estrogen Deficiency; Parkinsonism Unspecified (HCC) 11/27/2023 1:15 PM CDT Clinical Communication Virtual Review in [place], [place] [address] [place] [phone] Pre-visit Intake 11/26/2023 Documentation Department of Obstetrics and Gynecology, Division of Urogynecology in [place], [place] [address] [place] [phone] Franc Perez R.N. from Last 3 Months Allergies Active Allergy Reactions Criticality Noted Date Comments Amlodipine Other (see comments) High 07/28/2021 Cephalexin Other (see comments) High 07/28/2021 Lisinopril Other (see comments) High 07/28/2021 Medications atenoloL (Tenormin) 50 mg tablet Take 50 mg by mouth 2 (two) times a day. Active carbidopa-levodopa (Sinemet) 25-100 mg per tablet Take 1 tablet by mouth every 4 (four) hours PM. 4 Active DULoxetine (Cymbalta) [address] capsule Take 1 capsule by mouth 2 (two) times a day. 4 Active fluticasone propionate (Flonase) 50 mcg/actuation nasal spray Administer 2 sprays into each nostril daily. 1 Active hydroCHLOROthiazid e (HydroDiuril) 25 mg tablet Take 25 mg by mouth daily. Active simvastatin (Zocor) 5 mg tablet Take 1 tablet by mouth daily. 4 Active SUMAtriptan (Imitrex) 50 mg tablet Take 50 mg by mouth as needed. 2 Active NORETHINDRONE-ETHI N ESTRADIOL ORAL See Admin Instructions. Active ondansetron [...] Passive Smoke Exposure: Never Smokeless Tobacco: Never [facility] Utilities Answer Date Recorded In the [...] your living situation today? I have a [facility] place to live 11/27/2023 Comments Unknown [...] Cystocele Midline Incontinence Urinary Stress And Urge NE CYSTOMETROGRAM COMPLEX Routine 11/29/2023 11:15 AM CDT Cystocele Midline Incontinence Urinary Stress And Urge NE UROFLOWMETRY CMPLX Routine 11/29/2023 11:15 AM CDT Cystocele Midline Incontinence Urinary Stress And Urge NE PANCHO PST VOID RESID US NON IMG [...] CDT Don Null M.D., M.S. LAB URINE ORDERABLES F inal Result Performing Organization Address [facility] de Phone Number [facility] 200 [place] [address], [facility]note 3] 200 [place] [address] * Microscopic Automated (11/29/2023 11:41 AM CDT) Microscopy Normal 11/29/2023 2:31 PM CDT DTL RBC <3 <3 /hpf 11/29/2023 2:31 PM CDT DTL WBC None Seen /hpf 11/29/2023 2:31 PM CDT DTL Comment: ----REFERENCE VALUE---- <4 ??(Males) <11 (Females) Urine 11/29/2023 11:4 1 AM CDT 11/29/2023 1:38 PM CDT Don Null M.D., M.S. LAB URINE ORDERABLES F inal Result Performing Organization Address [facility] de Phone Number [facility] 200 [place] [address], [facility][note 3] 200 [place] [address] * Bacterial Culture, Aerobic + Susceptibility, Urine (11/29/2023 11:41 AM CDT) Urine Culture No growth after 1 day of incubation. 11/30/2023 8:07 AM CDT DTL Urine (Urine, Straight Catheter) 11/29/2023 11:41 AM CDT 11/29/2023 2:36 PM CDT Comment:Specimen Source Site : Urine us Don Null M.D., M.S. LAB MICROBIOLOGY - GEN ERAL ORDERABLES Final Result Performing Organization Address [facility] Co de Phone Number [facility] [address] 200 [place] [address] * pH, Urine (11/29/2023 11:41 AM CDT) pH, U 6.6 4.5 - 8.0 11/29/2023 2:4 3 PM CDT DTL Urine 11/29/2023 11:4 1 AM CDT 11/29/2023 1:38 PM CDT us Don Null M.D., M.S. LAB URINE ORDERABLES F inal Result Performing Organization Address [facility] Co de Phone Number [facility] 200 [place], [place] [address] [place] [address] 200 [place] [address] * Osmolality, Urine (11/29/2023 11:41 AM CDT) Osmolality, U 560 150 - 1150 mOsm/kg 11/29/2023 2:43 PM CDT DTL Urine 11/29/2023 11:4 1 AM CDT 11/29/2023 1:38 PM CDT us Don Null M.D., M.S. LAB URINE ORDERABLES F inal Result Performing Organization Address [facility] Co de Phone Number [facility] [address] 200 [place] [address] * Urinalysis, with Microscopic: Urine, Straight Catheter [...] 11:41 AM CDT 11/29/2023 1:37 PM CDT us Don Null M.D., M.S. LAB URINE ORDERABLES F inal Result Performing Organization Address City/State/[facility] Co de Phone Number [facility] [address] [place] [address], [facility][note 3] [address] [place] [address] * NE PANCHO PST VOID RESID US NON IMG, NE UROFLOWMETRY CMPLX, NE CYSTOMETROGRAM COMPLEX (11/29/2023 11:15 AM CDT) Narrative [...] (PVR 215, 200 ml) Please correlate clinically. us Don Null M.D., M.S. OB GYNE ORDERABLES Fin al Result from Last 3 Months Insurance [place] [address]
--- OUTSIDE RECORDS SUMMARY | 2024-01-27 09:55 | XMS_ITS | Encounter Summary ---
Author Organization [facility] Address [address] [place] [address] Care Team Providers Care Bulldogger Name Role Phone Unavailable Primary Care Provider Unavailabl e Reason for Visit * Reason Onset Date Comments Pre-visit Intake 11/27/2023 Encounter Details Date Type Department Care Team (Latest Contact Info) Description 11/27/2023 1:15 PM CDT Clinical Communication Virtual Review in [place], [place] 200 [place] [phone] Pre-visit Intake Social History Tobacco Use Types Packs/Day Years Used Date Smoking Tobacco: Never Passive Smoke Exposure: Never Smokeless Tobacco: Never [facility] Utilities Answer Date Recorded In [...] your living situation today? I have a [facility] place to live 11/27/2023 Comments Unknown Sex [...]
--- OUTSIDE RECORDS SUMMARY | 2024-01-27 09:55 | XMS_ITS | Encounter Summary ---
Author Organization [facility] Address [address] [place] [address] Care Team Providers Care Water Service Dispatcher Name Role Phone Unavailable Primary Care Provider Unavailabl e Reason for Referral * Physical Therapy (Routine) - Authorized Specialty Diagnoses / Procedures Referred By Lowell cox Referred To Contact Physical Therapy Diagnoses Incontinence Urinary Stress And Urge Overactive Bladder Atrophy Pelvic Muscle Disuse Don Null M.D., M.S. [address] [place] [address] Phone: tel: fax: Referral ID Status Reason Start Date Expiration Date V isits Requested Visits Authorized [id number] Authorized Other 11/29/2023 05/30/2025 1 1 Reason for Visit * Appointment Request (Routine) - Closed Specialty Diagnoses / Procedures Referred By Lowell cox Referred To Contact Obstetrics and Gynecology Diagnoses Cystocele Incontinence Urinary Stress And Urge Purvi Holden M.D. Phone: tel: fax: Referral ID Status Reason Start Date Expiration Date Visits Re quested Visits Authorized [id number] Closed 08/27/2023 08/26/2024 1 1 Encounter Details Date Type Department Care Team (Latest Contact Info) Description 11/29/2023 1:00 PM CDT Comprehensive Visit Department of Obstetrics and Gynecology, Division of Urogynecology in [place], [place] [address] [place] [phone] Don Null M.D., M.S. [address] [place] [address] Incontinence Urinary Stress And Urge (Primary Dx); Overactive Bladder; Atrophy Pelvic Muscle Disuse; Cervical Stump Prolapse; Atrophy Vagina Due To Estrogen Deficiency; Parkinsonism Unspecified (HCC) Social History Tobacco Use Types Packs/Day Years Used Date Smoking Tobacco: Never Passive Smoke Exposure: Never Smokeless Tobacco: Never [facility] Utilities Answer Date Recorded In the [...] [facility] place to live 11/27/2023 Comments Unknown [...] pelvic muscle stimulator that she purchased on [employer] and she has not use this consistently. 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 [...] symptoms, may consider pessary trial here at [place] with more pessary options. This would primarily [...]
--- OUTSIDE RECORDS SUMMARY | 2024-01-27 09:55 | XMS_ITS | Clinical Summary ---
Author Organization [facility] Address [address] [place] [address] Care Team Providers Care Film Touch Up Inspector Name Role Phone Unavailable Primary Care Provider Unavailabl e Source Comments Patient records contain information from all sites at [facility]. For routine questions regarding patient records, call [phone] during business hours, M-F 8:00 AM - 5:00 PM Central Time. Record requests for emergency care only can be directed to [phone] at any time.[facility] Allergies Active Allergy Reactions Criticality Noted Date [...] Take 50 mg by mouth as needed. Active NORETHINDRONE-ETHI N ESTRADIOL ORAL See Admin [...] Obstetrics and Gynecology, Division of Urogynecology in [address] [phone] Don Null M.D., M.S. Incontinence Urinary Stress And Urge (Primary Dx); Overactive Bladder; Atrophy Pelvic Muscle Disuse; Cervical Stump Prolapse; Atrophy Vagina Due To Estrogen Deficiency; Parkinsonism Unspecified (HCC) 11/29/2023 11:15 AM CDT Procedure visit Department of Obstetrics and Gynecology, Division of Urogynecology in [address] [address] Don Null M.D., M.S. Cystocele Midline (Primary Dx); Incontinence Urinary Stress And Urge 11/27/2023 1:15 PM CDT Clinical Communication Virtual Review in [place], [place] 200 [place] [address] Pre-visit Intake 11/26/2023 Documentation Department of Obstetrics and Gynecology, Division of Urogynecology in [place], [place] [address] [place] [phone] Franc Perez R.N. from Last 3 Months Social History Tobacco Use Types Packs/Day Years Used Date Smoking Tobacco: Never Passive Smoke Exposure: Never Smokeless Tobacco: Never [facility] Utilities Answer Date Recorded In [...] your living situation today? I have a [facility] place to live 11/27/2023 Comments Unknown [...] 02/28/2021, 07/02/2020, 06/11/2020 Influenza Vaccine (#1) 2023 3, 03/24/2021, 01/16/2019, Additional history exists DTaP,Tdap,and Td Vaccines (3 - Td or Tdap) 11/02/2026 11/02/2016, 08/21/2007, 10/25/1997 Zoster Vaccines Completed 10/22/2017, 07/09/2017 IPV Vaccines Aged Out No longer eligi ble based on patient's age to complete this topic Pneumococcal vaccine (0-64 years) Aged Out No [...] Cystocele Midline Incontinence Urinary Stress And Urge IN CYSTOMETROGRAM COMPLEX Routine 11/29/2023 11:15 AM CDT Cystocele Midline Incontinence Urinary Stress And Urge IN UROFLOWMETRY CMPLX Routine 11/29/2023 11:15 AM CDT Cystocele Midline Incontinence Urinary Stress And Urge IN PANCHO PST VOID RESID US NON IMG Routine 11/29/2023 11:15 AM CDT Cystocele Midline Incontinence Urinary Stress And Urge from Last 3 Months Results * Dipstick, Urine (11/29/2023 11:41 AM CDT) Pathologist [facility] Hemoglobin, QL, U Negative Negative 11/29/2023 2:31 [...] M.S. LAB URINE ORDERABLES F inal Result [facility] [address] [place] [address], [place] [facility] [place] [address] [place] [address] * Microscopic Automated (11/29/2023 11:41 AM CDT) Pathologist [facility] Microscopy Normal 11/29/2023 2:31 PM CDT DTL RBC <3 <3 /hpf 11/29/2023 2:31 PM CDT DTL WBC None Seen /hpf 11/29/2023 2:31 PM CDT DTL Comment: ----REFERENCE VALUE---- <4 ??(Males) <11 (Females) Urine 11/29/2023 11:4 1 AM CDT 11/29/2023 1:38 PM CDT Don Null M.D., M.S. LAB URINE ORDERABLES F inal Result Performing Organization Address City/[facility] Co de Phone Number [facility] [address] 200 [place] [address] * Bacterial Culture, Aerobic + Susceptibility, Urine (11/29/2023 11:41 AM CDT) [facility] Urine Culture No growth after 1 day of incubation. 11/30/2023 8:07 AM CDT DTL Urine (Urine, Straight Catheter) 11/29/2023 11:41 AM CDT 11/29/2023 2:36 PM CDT Comment:Specimen Source Site : Urine Don Null M.D., M.S. LAB MICROBIOLOGY - GEN ERAL ORDERABLES Final Result Performing Organization Address [facility]/ZIP Co de Phone Number [facility] [address] 200 [place] [address] * pH, Urine (11/29/2023 11:41 AM CDT) [facility] pH, U 6.6 4.5 - 8.0 11/29/2023 2:4 3 PM CDT DTL Urine 11/29/2023 11:4 1 AM CDT 11/29/2023 1:38 PM CDT us Don Null M.D., M.S. LAB URINE ORDERABLES F inal Result Performing Organization Address City/[facility]/ZIP Co de Phone Number [facility] [address] [place] [address], [facility] [place] 200 [place] [address] * Osmolality, Urine (11/29/2023 11:41 AM CDT) Osmolality, U 560 150 - 1150 mOsm/kg 11/29/2023 2:43 PM CDT DTL Urine 11/29/2023 11:4 1 AM CDT 11/29/2023 1:38 PM CDT us Don Null M.D., M.S. LAB URINE ORDERABLES F inal Result Performing Organization Address [facility] de Phone Number [facility] 200 [place] [address], [facility] 200 [place] [address] * Urinalysis, with Microscopic: Urine, Straight Catheter [...] M.S. LAB URINE ORDERABLES F inal Result [facility] [address] [place] [address], [place] DTL [facility] [address] [place] [address] * IN PANCHO PST VOID RESID US NON IMG, IN UROFLOWMETRY CMPLX, IN CYSTOMETROGRAM COMPLEX (11/29/2023 11:15 AM CDT) Narrative [...] al Result from Last 3 Months Insurance [facility]
--- OUTSIDE RECORDS SUMMARY | 2024-01-27 09:55 | XMS_ITS | Clinical Summary ---
Author Organization [facility] [employer] Address [place], [place] [address] Care Team Providers Care Graduate Internship Name Role Phone Margaret Bolden MD Primary [...] durable medical equipment (DME)Indications:Plant ar fasciitis, left [phone] Plantar Fasciitis,Night Splint, Medium 1 Each 08/23/2021 [...] (1 of 2) 10/12/2015 COVID-19 vaccine series (2023- season) 2023 02/28/2021, 07/02/2020, 06/11/2020 Influenza for age 50-64 11/17/2023 Pap test for age 21-65 03/31/2024 , 03/31/2021 Pneumococcal series for age 6-64 Aged Out No longer eligible b ased on patient's age to complete this topic Procedures Procedure Name Priority Date/Time Associated Diagnosis Comments HPV HIGH RISK Routine 03/31/2021 12:00 PM SANITARIAN INSPECTOR from Last 3 Months or Most Recently Relevant to Health Maintenance Results * HPV HIGH RISK (03/31/2021 12:00 PM SANITARIAN INSPECTOR) TYPE 16 Negative Negative 04/04/2021 2:16 PM SANITARIAN INSPECTOR [facility] TYPE 18 Negative Negative 04/04/2021 2:16 PM SANITARIAN INSPECTOR [facility] OTHER HIGH RISK TYPES Negative Negative 04/04/2021 2:16 PM SANITARIAN INSPECTOR [facility] Other (Other) 03/31/2021 12: 00 PM SANITARIAN INSPECTOR 04/03/2021 7:39 AM SANITARIAN INSPECTOR [facility] - 04/04/2021 2:16 PM SANITARIAN INSPECTOR HPV types 16, 18, 31, 33, 35, 39, 45, 51, 52, 56, 58, 59, 66 and 68 DNA were undetectable or below the pre-set threshold. Methodology: Kendall Yasmine 4800 HPV Test Margaret Bolden MD MICROBIOLOGY [facility] [address] [place] [address], from Last 3 Months or Most Recently Relevant to Health Maintenance Care Teams Graduate Internship Relationship Specialty Start Date End Date Margaret Bolden MD [address] [place] [address] PCP - General Family Practice 08/23/21
--- OUTSIDE RECORDS SUMMARY | 2024-01-27 09:55 | XMS_ITS | Clinical Summary ---
Author Organization [facility] Address [address] [place] [address] Care Team Providers Care Manager Rn Case Name Role Phone Shoshana Harding MD Primary Care Provider [phone] Source Comments You are receiving this document as you are listed as the primary care provider,follow-up provider, or the patient has been referred to you for consultation.This is in compliance with the Medicare and[facility] EHR Incentive Program,which states Providers who transition their patient to another setting of careor provider of care or refers their patient to another provider of care shouldprovide summary care record for each transition of care or referral. [employer] Allergies No known active allergies Medications Medication [...] QIV 12/22/19 17 Influenza IIV4 (Quadrivalent) 0.5mL (01392) 11/16 Pfizer Monovalent 12+ Purple Top 02/28/2021,06/16,06/11/2020 [...] 1965 Hep C Screening (Preventive Services) 1965 HIV Screening (Preventive Services) 1981 Adult Preventive Visit 10/12/1983 HepB (1) 1984 Cholesterol 2010 Cervical Cancer Screening Due 07/14/2011 07/13/2011 Mammogram 08/07/2014 08/07/2013 COVID-19 Vaccine ( season) 2023 02/28/2021, 07/02/2020, 06/11/2020 Influenza (#1) 2023 03/24/2021, 1103/2018, 12/21/2016, Additional history exists DTaP/Tdap/Td (3 - Tdap) 11/02/2026 11/03/19 17, 08/21/2007, 10/25/1997 Zoster/Shingles Completed 10/22/2017, 07/09/2017 HepA Aged Out No longer eligi ble based on patient's age to complete this topic Hib Aged Out No longer eligi ble based on patient's age to complete this topic IPV (Polio) Aged Out No longer eligi ble based on patient's age to complete this topic RSV Aged Out No longer eligi ble based on patient's age to complete this topic MCV4 Aged Out No longer eligi ble based on patient's age to complete this topic Pneumococcal Aged Out No longer eligi ble based on patient's age to complete this topic Care Teams Manager Rn Case Relationship Specialty Start Date End Date Shoshana Harding MD [address] [place] [address] PCP - General Internal Medicine 05/24/22
--- OUTSIDE RECORDS SUMMARY | 2024-01-27 09:55 | XMS_ITS | Encounter Summary ---
Author Organization [facility] Address [address] [place] [address] Care Team Providers Care Cut In Worker Name Role Phone Unavailable Primary Care Provider Unavailabl e Reason for Visit * Outpatient (Routine) - Closed Specialty Diagnoses / Procedures Referred By Lowell t Referred To Contact Diagnoses Cystocele Midline Incontinence Urinary Stress And Urge Procedures OBG Urodynamic Studies Don Null M.D., M.S. [address] [place] [phone] Phone: tel: fax: [facility] Referral ID Status Reason Start Date Expiration Date Visits Re quested Visits Authorized [id number] Closed 08/29/2023 08/28/2024 1 1 Encounter Details Date Type Department Care Team (Latest Contact Info) Description 11/29/2023 11:15 AM CDT Procedure visit Department of Obstetrics and Gynecology, Division of Urogynecology in [place], [place] [address] [place] [phone] Don Null M.D., M.S. [address] [place] [phone] Cystocele Midline (Primary Dx); Incontinence Urinary Stress And Urge Social History Tobacco Use Types Packs/Day Years Used Date Smoking Tobacco: Never Passive Smoke Exposure: Never Smokeless Tobacco: Never [facility] Utilities Answer Date Recorded In the past 12 months has [employer] electric, gas, oil, or water company threatened [...] your living situation today? [facility] 11/27/2023 Comments Unknown Sex [...] M.D., M.S. Care team members present 1. TerezaalinSherine Jose PROCEDURE DETAILS: Procedures: Combined (CMG + [...] ml) Please correlate clinically. GYNSURG Exam Amb Cosigned by Don Null M.D., M.S. at 11/29/2023 4:05 PM CDT documented in this encounter Plan of Treatment [...] Cystocele Midline Incontinence Urinary Stress And Urge [place] CYSTOMETROGRAM COMPLEX Routine 11/29/2023 11:15 AM CDT Cystocele Midline Incontinence Urinary Stress And Urge TX UROFLOWMETRY CMPLX Routine 11/29/2023 11:15 AM CDT Cystocele Midline Incontinence Urinary Stress And Urge TX PANCHO PST VOID RESID US NON IMG Routine 11/29/2023 11:15 AM CDT Cystocele Midline Incontinence Urinary Stress And Urge documented in this encounter Results * Dipstick, Urine (11/29/2023 11:41 AM CDT) Pathologist [facility] Hemoglobin, QL, U Negative Negative 11/29/2023 2:31 [...] ORDERABLES F inal Result Performing Organization Address City/[facility]/ZIP Co de Phone Number [facility] [address] 200 [place] [address] * pH, Urine (11/29/2023 11:41 AM CDT) [facility] pH, U 6.6 4.5 - 8.0 11/29/2023 2:4 3 PM CDT DTL Urine 11/29/2023 11:4 1 AM CDT 11/29/2023 1:38 PM CDT us Don Null M.D., M.S. LAB URINE ORDERABLES F inal Result Performing Organization Address City/[facility]/ZIP Co de Phone Number [facility] [address] 200 [place] [address] * Microscopic Automated (11/29/2023 11:41 AM CDT) [facility] Microscopy Normal 11/29/2023 2:31 PM CDT DTL RBC <3 <3 /hpf 11/29/2023 2:31 PM CDT DTL WBC None Seen /hpf 11/29/2023 2:31 PM CDT DTL Comment: ----REFERENCE VALUE---- <4 ??(Males) <11 (Females) Urine 11/29/2023 11:4 1 AM CDT 11/29/2023 1:38 PM CDT us Don Null M.D., M.S. LAB URINE ORDERABLES F inal Result Performing Organization Address City/[facility]/ZIP Co de Phone Number [facility] 200 [place] [address] * Osmolality, Urine (11/29/2023 11:41 AM CDT) [facility] Osmolality, U 560 150 - 1150 mOsm/kg 11/29/2023 2:43 PM CDT DTL Urine 11/29/2023 11:4 1 AM CDT 11/29/2023 1:38 PM CDT us Don Null M.D., M.S. LAB URINE ORDERABLES F inal Result Performing Organization Address [facility] Co de Phone Number [facility] 200 [place] [address] * Urinalysis, with Microscopic: Urine, Straight Catheter (11/29/2023 11:41 AM CDT) Pathologist [facility] Source Urine, Urine, Straight Catheter 11/29/2023 1:37 [...] ORDERABLES F inal Result Performing Organization Address [facility] Co de Phone Number [facility] [address] [place] [address] * Bacterial Culture, Aerobic + Susceptibility, Urine (11/29/2023 11:41 AM CDT) Urine Culture No growth after 1 day of incubation. 11/30/2023 8:07 AM CDT DTL Urine (Urine, Straight Catheter) 11/29/2023 11:41 AM CDT 11/29/2023 2:36 PM CDT Comment:Specimen Source Site : Urine us Don Null M.D., M.S. LAB MICROBIOLOGY - GEN ERAL ORDERABLES Final Result Performing Organization Address [facility] Co de Phone Number [facility] [address] DTL [facility] 200 [place] [address] * [place] PANCHO PST VOID RESID US NON IMG, [place] UROFLOWMETRY CMPLX, [place] CYSTOMETROGRAM COMPLEX (11/29/2023 11:15 AM CDT) Narrative [...] M.S. OB GYNE ORDERABLES Fin al Result documented in this encounter Visit Diagnoses Diagnosis Cystocele Midline- Primary Incontinence Urinary Stress And Urge documented in this encounter
--- NOTE | 2024-01-27 11:24 | W.ANESCHARGE ---
Anesthesia Charges Start Date/Time Anesthesia Start Date: 01/27/24 Anesthesia Start Time: 10:47 Stop Date/Time Anesthesia Stop Date: 01/27/24 Anesthesia Stop Time: 11:22
--- NOTE | 2024-01-27 11:27 | W.ANESCHARGE ---
Anesthesia Charges Start Date/Time Anesthesia Start Date: 01/27/24 Anesthesia Start Time: 10:47 Stop Date/Time Anesthesia Stop Date: 01/27/24 Anesthesia Stop Time: 11:22
== END 2024-01-27 09:51 | disposition home or self-care (01) ==
LOC: OP CLINIC 09:52
PROVIDERS: PCP Internal Medicine; Visit Provider Internal Medicine
DX: Z12.11 Encounter for screening for malignant neoplasm of colon (principal); K63.89 Other specified diseases of intestine; Z86.0100 Personal history of colon polyps, unspecified
CPT/HCPCS: 00811; 45380; 45381; 81210; 88305; 88341; 88342; J2704

== ENCOUNTER 2024-01-31 11:44 | Outpatient (CLI) | payer BC, SELFPAY ==
--- OUTSIDE RECORDS SUMMARY | 2024-02-04 23:56 | XMS_ITS | Referral Summary ---
Author Organization [facility] Address [address] [place] [address] Care Team Providers Care Jammer Hooker Name Role Phone Unavailable Primary Care Provider Unavailabl e Source Comments Patient records contain information from all sites at [facility]. For routine questions regarding patient records, call [phone] during business hours, M-F 8:00 AM - 5:00 PM Central Time. Record requests for emergency care only can be directed to [phone] at any time.[facility] Encounters Date Type Department Care Team Description 11/29/2023 11:15 AM CDT Procedure visit Department of Obstetrics and Gynecology, Division of Urogynecology in [place], [place] [address] [place] [phone] Don Null M.D., M.S. Cystocele Midline (Primary Dx); Incontinence Urinary Stress And Urge 11/29/2023 1:00 PM CDT Comprehensive Visit Department of Obstetrics and Gynecology, Division of Urogynecology in [place], [place] [address] [place] [phone] Don Null M.D., M.S. Incontinence Urinary Stress And Urge (Primary Dx); Overactive Bladder; Atrophy Pelvic Muscle Disuse; Cervical Stump Prolapse; Atrophy Vagina Due To Estrogen Deficiency; Parkinsonism Unspecified (HCC) 11/27/2023 1:15 PM CDT Clinical Communication Virtual Review in [place], [place] 200 [place] [address] Pre-visit Intake 11/26/2023 Documentation Department of Obstetrics and Gynecology, Division of Urogynecology in [place], [place] [address] [place] [address] Franc Perez R.N. from Last 3 Months [...] Passive Smoke Exposure: Never Smokeless Tobacco: Never [facility] Utilities Answer Date Recorded In the past [...] [facility] place to live 11/27/2023 Comments Unknown Sex [...] Cystocele Midline Incontinence Urinary Stress And Urge [place] CYSTOMETROGRAM COMPLEX Routine 11/29/2023 11:15 AM CDT Cystocele Midline Incontinence Urinary Stress And Urge [place] UROFLOWMETRY CMPLX Routine 11/29/2023 11:15 AM CDT Cystocele Midline Incontinence Urinary Stress And Urge [place] PANCHO PST VOID RESID US NON IMG [...] ORDERABLES F inal Result Performing Organization Address [facility] de Phone Number [facility] [address] [facility] 200 [place] [address] * Microscopic Automated (11/29/2023 11:41 AM CDT) Microscopy Normal 11/29/2023 2:31 PM CDT DTL RBC <3 <3 /hpf 11/29/2023 2:31 PM CDT DTL WBC None Seen /hpf 11/29/2023 2:31 PM CDT DTL Comment: ----REFERENCE VALUE---- <4 (Males) <11 (Females) Urine 11/29/2023 11:4 1 AM CDT 11/29/2023 1:38 PM CDT Don Null M.D., M.S. LAB URINE ORDERABLES F inal Result Performing Organization Address [facility] de Phone Number [facility] [address] [facility] 200 [place] [address] * Bacterial Culture, Aerobic + Susceptibility, Urine (11/29/2023 11:41 AM CDT) Urine Culture No growth after 1 day of incubation. 11/30/2023 8:07 AM CDT DTL Urine (Urine, Straight Catheter) 11/29/2023 11:41 AM CDT 11/29/2023 2:36 PM CDT Comment:Specimen Source Site : Urine Don Null M.D., M.S. LAB MICROBIOLOGY - GEN ERAL ORDERABLES Final Result Performing Organization Address City/[facility]/ZIP Co de Phone Number [facility] [address] 200 [place] [address] * pH, Urine (11/29/2023 11:41 AM CDT) pH, U 6.6 4.5 - 8.0 11/29/2023 2:4 3 PM CDT DTL Urine 11/29/2023 11:4 1 AM CDT 11/29/2023 1:38 PM CDT us Don Null M.D., M.S. LAB URINE ORDERABLES F inal Result Performing Organization Address [facility] Co de Phone Number [facility] [address] 200 [place] [address] * Osmolality, Urine (11/29/2023 11:41 AM CDT) Osmolality, U 560 150 - 1150 mOsm/kg 11/29/2023 2:43 PM CDT DTL Urine 11/29/2023 11:4 1 AM CDT 11/29/2023 1:38 PM CDT us Don Nlul M.D., M.S. LAB URINE ORDERABLES F inal Result Performing Organization Address City/[facility] Co de Phone Number [facility] [address] 200 [place] [address] * Urinalysis, with Microscopic: Urine, Straight Catheter [...] ORDERABLES F inal Result Performing Organization Address City/State/[facility] Co de Phone Number [facility] [address] [place] [address], [facility] [address] [place] [address] * [place] PANCHO PST VOID RESID US NON IMG, [place] UROFLOWMETRY CMPLX, [place] CYSTOMETROGRAM COMPLEX (11/29/2023 11:15 AM CDT) Narrative Don Null M.D., M.S. - 11/29/2023 11:15 AM CDT Harika Bardales M.D. 11/29/2023 4:00 PM OBG Urodynamic Studies Performed by: Don [...] al Result from Last 3 Months Insurance [facility]
--- OUTSIDE RECORDS SUMMARY | 2024-02-04 23:56 | XMS_ITS | Clinical Summary ---
Author Organization [facility] Address [address] [place] [address] Care Team Providers Care Educational Paraprofessional Name Role Phone Unavailable Primary Care Provider Unavailabl e Source Comments Patient records contain information from all sites at [facility]. For routine questions regarding patient records, call [phone] during business hours, M-F 8:00 AM - 5:00 PM Central Time. Record requests for emergency care only can be directed to [phone] at any time.[facility] Allergies Active Allergy Reactions Criticality Noted Date [...] Obstetrics and Gynecology, Division of Urogynecology in [address] [address] Don Null M.D., M.S. Incontinence Urinary Stress And Urge (Primary Dx); Overactive Bladder; Atrophy Pelvic Muscle Disuse; Cervical Stump Prolapse; Atrophy Vagina Due To Estrogen Deficiency; Parkinsonism Unspecified (HCC) 11/29/2023 11:15 AM CDT Procedure visit Department of Obstetrics and Gynecology, Division of Urogynecology in [address] [address] Don Null M.D., M.S. Cystocele Midline (Primary Dx); Incontinence Urinary Stress And Urge 11/27/2023 1:15 PM CDT Clinical Communication Virtual Review in [place], [place] 200 [place] [address] Pre-visit Intake 11/26/2023 Documentation Department of Obstetrics and Gynecology, Division of Urogynecology in [place], [place] [address] [place] [phone] Franc Perez R.N. from Last 3 Months Social History Tobacco Use Types Packs/Day Years Used Date Smoking Tobacco: Never Passive Smoke Exposure: Never Smokeless Tobacco: Never [facility] Utilities Answer Date Recorded In the [...] your living situation today? I have a [facility] place to live 11/27/2023 Comments Unknown Sex [...] Cystocele Midline Incontinence Urinary Stress And Urge OR CYSTOMETROGRAM COMPLEX Routine 11/29/2023 11:15 AM CDT Cystocele Midline Incontinence Urinary Stress And Urge OR UROFLOWMETRY CMPLX Routine 11/29/2023 11:15 AM CDT Cystocele Midline Incontinence Urinary Stress And Urge OR PANCHO PST VOID RESID US NON IMG [...] M.S. LAB URINE ORDERABLES F inal Result [facility] [address] [place] [address], [place] [facility] [address] [place] [address] * Microscopic Automated (11/29/2023 11:41 AM CDT) [...] ORDERABLES F inal Result Performing Organization Address City/[facility]/ZIP Co de Phone Number [facility] [address] 200 [place] [address] * Bacterial Culture, Aerobic + Susceptibility, Urine (11/29/2023 11:41 AM CDT) [facility] Urine Culture No growth after 1 day of incubation. 11/30/2023 8:07 AM CDT DTL Urine (Urine, Straight Catheter) 11/29/2023 11:41 AM CDT 11/29/2023 2:36 PM CDT Comment:Specimen Source Site : Urine Don Null M.D., M.S. LAB MICROBIOLOGY - GEN ERAL ORDERABLES Final Result Performing Organization Address City/[facility]/ZIP Co de Phone Number [facility] [address] [facility] 200 [place] [address] * pH, Urine (11/29/2023 11:41 AM CDT) [facility] pH, U 6.6 4.5 - 8.0 11/29/2023 2:4 3 PM CDT DTL Urine 11/29/2023 11:4 1 AM CDT 11/29/2023 1:38 PM CDT us oDn Null M.D., M.S. LAB URINE ORDERABLES F inal Result Performing Organization Address City/[facility]/ZIP Co de Phone Number [facility] 200 [place] [address], [facility] 200 [place] [address] * Osmolality, Urine (11/29/2023 11:41 AM CDT) Osmolality, U 560 150 - 1150 mOsm/kg 11/29/2023 2:43 PM CDT DTL Urine 11/29/2023 11:4 1 AM CDT 11/29/2023 1:38 PM CDT Don Null M.D., M.S. LAB URINE ORDERABLES F inal Result Performing Organization Address [facility] Co de Phone Number [facility] 200 [place] [address], [facility] 200 [place] [address] * Urinalysis, with Microscopic: Urine, Straight Catheter [...] M.S. LAB URINE ORDERABLES F inal Result [facility] [address] [place] [address], [place] DTL [facility] [address] [place] [address] * OR PANCHO PST VOID RESID US NON IMG, OR UROFLOWMETRY CMPLX, OR CYSTOMETROGRAM COMPLEX (11/29/2023 11:15 AM CDT) Narrative [...] al Result from Last 3 Months Insurance [facility]
--- OUTSIDE RECORDS SUMMARY | 2024-02-04 23:56 | XMS_ITS ---
Author Organization [facility] Address [address] [place] [address] Care Team Providers Care Java Websphere Developer Name Role Phone Unavailable Unavailable Unavailable Surgery Details Not on file Complications Check Surgery Details section. Procedure Estimated Blood Loss Check Surgery Details section. Procedure Findings Check Surgery Details section. Procedure Specimens Taken Check Surgery Details section.
--- OUTSIDE RECORDS SUMMARY | 2024-02-04 23:57 | XMS_ITS | Encounter Summary ---
Author Organization [facility] Address [address] [place] [address] Care Team Providers Care Master Lay Out Specialist Name Role Phone Unavailable Primary Care Provider Unavailabl e Reason for Referral * Physical Therapy (Routine) - Authorized Specialty Diagnoses / Procedures Referred By Lowell cox Referred To Contact Physical Therapy Diagnoses Incontinence Urinary Stress And Urge Overactive Bladder Atrophy Pelvic Muscle Disuse Don Null M.D., M.S. 200 [place] [address] Phone: tel: fax: Referral ID Status Reason Start Date Expiration Date V isits Requested Visits Authorized [id number] Authorized Other 11/29/2023 05/30/2025 1 1 Reason for Visit * Appointment Request (Routine) - Closed Specialty Diagnoses / Procedures Referred By Lowell cox Referred To Contact Obstetrics and Gynecology Diagnoses Cystocele Incontinence Urinary Stress And Urge Purvi Holden M.D. Phone: tel: fax: Referral ID Status Reason Start Date Expiration Date Visits Re quested Visits Authorized [id number] Closed 08/27/2023 08/26/2024 1 1 Encounter Details Date Type Department Care Team (Latest Contact Info) Description 11/29/2023 1:00 PM CDT Comprehensive Visit Department of Obstetrics and Gynecology, Division of Urogynecology in [place], [place] [address] [place] [phone] Don Null M.D., M.S. [address] [place] [address] Incontinence Urinary Stress And Urge (Primary Dx); Overactive Bladder; Atrophy Pelvic Muscle Disuse; Cervical Stump Prolapse; Atrophy Vagina Due To Estrogen Deficiency; Parkinsonism Unspecified (HCC) Social History Tobacco Use Types Packs/Day Years Used Date Smoking Tobacco: Never Passive Smoke Exposure: Never Smokeless Tobacco: Never [facility] Utilities Answer Date Recorded In the [...] your living situation today? I have a [facility] place to live 11/27/2023 Comments Unknown [...] pelvic muscle stimulator that she purchased on [employer] and she has not use this consistently. 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 [...] symptoms, may consider pessary trial here at [place] with more pessary options. This would primarily [...]
--- OUTSIDE RECORDS SUMMARY | 2024-02-04 23:57 | XMS_ITS | Clinical Summary ---
Author Organization [facility] Address [place], [place] [address] Care Team Providers Care Web Content Writer Name Role Phone Margaret Bolden MD Primary [...] durable medical equipment (DME)Indications:Plant ar fasciitis, left [phone] Plantar Fasciitis,Night Splint, Medium 1 Each 08/23/2021 [...] HPV HIGH RISK Routine 03/31/2021 12:00 PM CROZER from Last 3 Months or Most Recently Relevant to Health Maintenance Results * HPV HIGH RISK (03/31/2021 12:00 PM CROZER) TYPE 16 Negative Negative 04/04/2021 2:16 PM CROZER [facility] TYPE 18 Negative Negative 04/04/2021 2:16 PM CROZER [facility] OTHER HIGH RISK TYPES Negative Negative 04/04/2021 2:16 PM CROZER [facility] Other (Other) 03/31/2021 12: 00 PM CROZER 04/03/2021 7:39 AM CROZER [facility] - 04/04/2021 2:16 PM CROZER HPV types 16, 18, 31, 33, 35, 39, 45, 51, 52, 56, 58, 59, 66 and 68 DNA were undetectable or below the pre-set threshold. Methodology: Kendall Yasmine 4800 HPV Test Margaret Bolden MD MICROBIOLOGY [facility] [address] [place] [address], from Last 3 Months or Most Recently Relevant to Health Maintenance Care Teams Web Content Writer Relationship Specialty Start Date End Date Margaret Bolden MD [address] [place] [address] PCP - General Family Practice 08/23/21
--- OUTSIDE RECORDS SUMMARY | 2024-02-04 23:57 | XMS_ITS | Clinical Summary ---
Author Organization [facility] Address [address] [place] [address] Care Team Providers Care Enrichment Specialist Name Role Phone Shoshana Harding MD Primary Care Provider [phone] Source Comments You are receiving this document as you are listed as the primary care provider,follow-up provider, or the patient has been referred to you for consultation.This is in compliance with the Medicare and[facility] EHR Incentive Program,which states Providers who transition their patient to another setting of careor provider of care or refers their patient to another provider of care shouldprovide summary care record for each transition of care or referral. [employer] Airlines[employer]plifyMD Allergies No known active allergies Medications Medication [...] QIV 12/22/19 17 Influenza IIV4 (Quadrivalent) 0.5mL (40351) 11/16 Pfizer Monovalent 12+ Purple Top 02/28/2021,06/16,06/11/2020 [...] 60 05/29/2010 7:34 PM CDT Temperature 36.7 C (98.1 F) 05/29/2010 7:34 PM CDT Respiratory Rate - - Oxygen Saturation - [...] 02/28/2021, 07/02/2020, 06/11/2020 Influenza (#1) 2023 03/24/2021, 03/2018, 12/21/2016, Additional history exists DTaP/Tdap/Td (3 - Tdap) 11/02/2026 11/03/19 17, 08/21/2007, 10/25/1997 Zoster/Shingles Completed 10/22/2017, 07/09/2017 HepA Aged Out No longer eligi ble based on patient's age to complete this topic Hib Aged Out No longer eligi ble based on patient's age to complete this topic IPV (Polio) Aged Out No longer eligi ble based on patient's age to complete this topic Infant RSV Aged Out No longer eligi ble based on patient's age to complete this topic MCV4 Aged Out No longer eligi ble based on patient's age to complete this topic Pneumococcal Aged Out No longer eligi ble based on patient's age to complete this topic Care Teams Enrichment Specialist Relationship Specialty Start Date End Date Shoshana Harding MD [address] [place] [address] PCP - General Internal Medicine 05/24/22
--- OUTSIDE RECORDS SUMMARY | 2024-02-04 23:57 | XMS_ITS | Encounter Summary ---
Author Organization [facility] Address [address] [place] [address] Care Team Providers Care Computer Technical Specialist Name Role Phone Unavailable Primary Care Provider Unavailabl e Encounter Details Date Type Department Care Team (Late st Contact Info) Description 11/26/2023 Documentation Department of Obstetrics and Gynecology, Division of Urogynecology in [place], [place] [address] [place] [phone] Franc Perez, R.N. [address] [place] [phone] Social History Tobacco Use Types Packs/Day Years Used Date Smoking Tobacco: Never Assessed [facility] Utilities Answer Date Recorded In the [...] Records have been requested by not received. alarm security or surveillance monitor Hx: . 2 vaginal births, one with severe laceration. Hx of rapid labor. She has no hx of abnormal Pap No hx of STI She is infrequently sexually active PMH: Included L tendonitis Social Hx: She works in [place]. Lives in [place]. She is . Exam: Narrative General: No [...] with some sort of mesh placement at [facility] in 2013. We have requested operative reports, [...] Hx of unknown pelvic mesh placement at [facility] in 2013. She is now interested in surgical treatment of incontinence and prolapse. Given her history of pelvic surgery with mesh, I opted to refer her to urogynecology. We discussed the etiologies and multiple treatment options for her condition. Purvi Holden MD TOOL AND EQUIPMENT RENTAL CLERK/PAP HISTORY: (vaginal) PAST MEDICAL HISTORY: Past Medical [...]
--- OUTSIDE RECORDS SUMMARY | 2024-02-04 23:57 | XMS_ITS | Encounter Summary ---
Author Organization [facility] Address [address] [place] [address] Care Team Providers Care Rug Measurer Name Role Phone Unavailable Primary Care Provider Unavailabl e Reason for Visit * Reason Onset Date Comments Pre-visit Intake 11/27/2023 Encounter Details Date Type Department Care Team (Latest Contact Info) Description 11/27/2023 1:15 PM CDT Clinical Communication Virtual Review in [place], [place] 200 [place] [phone] Pre-visit Intake Social History Tobacco Use Types Packs/Day Years Used Date Smoking Tobacco: Never Passive Smoke Exposure: Never Smokeless Tobacco: Never [facility] Utilities Answer Date Recorded In the [...] your living situation today? I have a [facility] place to live 11/27/2023 Comments Unknown [...]
--- OUTSIDE RECORDS SUMMARY | 2024-02-04 23:57 | XMS_ITS | Encounter Summary ---
Author Organization [facility] Address [address] [place] [address] Care Team Providers Care Glass Calibrator Name Role Phone Unavailable Primary Care Provider Unavailabl e Reason for Visit * Outpatient (Routine) - Closed Specialty Diagnoses / Procedures Referred By Lowell t Referred To Contact Diagnoses Cystocele Midline Incontinence Urinary Stress And Urge Procedures OBG Urodynamic Studies Don Null M.D., M.S. [address] [place] [phone] Phone: tel: fax: [facility] Referral ID Status Reason Start Date Expiration Date Visits Re quested Visits Authorized [id number] Closed 08/29/2023 08/28/2024 1 1 Encounter Details Date Type Department Care Team (Latest Contact Info) Description 11/29/2023 11:15 AM CDT Procedure visit Department of Obstetrics and Gynecology, Division of Urogynecology in [place], [place] [address] [place] [phone] Don Null M.D., M.S. [address] [place] [phone] Cystocele Midline (Primary Dx); Incontinence Urinary Stress And Urge Social History Tobacco Use Types Packs/Day Years Used Date Smoking Tobacco: Never Passive Smoke Exposure: Never Smokeless Tobacco: Never [facility] Utilities Answer Date Recorded In the past 12 months has [employer] electric, gas, oil, or water company threatened [...] your living situation today? I have a [facility] place to live 11/27/2023 Comments Unknown [...] Cystocele Midline Incontinence Urinary Stress And Urge MD CYSTOMETROGRAM COMPLEX Routine 11/29/2023 11:15 AM CDT Cystocele Midline Incontinence Urinary Stress And Urge MD UROFLOWMETRY CMPLX Routine 11/29/2023 11:15 AM CDT Cystocele Midline Incontinence Urinary Stress And Urge MD PANCOH PST VOID RESID US NON IMG Routine 11/29/2023 11:15 AM CDT Cystocele Midline Incontinence Urinary Stress And Urge documented in this encounter Results * Dipstick, Urine (11/29/2023 11:41 AM CDT) Pathologist [facility] Hemoglobin, QL, U Negative Negative 11/29/2023 2:31 [...] ORDERABLES F inal Result Performing Organization Address City/[facility]/ZIP Co de Phone Number [facility] [address] 200 [place] [address] * pH, Urine (11/29/2023 11:41 AM CDT) [facility] pH, U 6.6 4.5 - 8.0 11/29/2023 2:4 3 PM CDT DTL Urine 11/29/2023 11:4 1 AM CDT 11/29/2023 1:38 PM CDT us Don Null M.D., M.S. LAB URINE ORDERABLES F inal Result Performing Organization Address City/[facility]/ZIP Co de Phone Number [facility] [address] 200 [place] [address] * Microscopic Automated (11/29/2023 11:41 AM CDT) [facility] Microscopy Normal 11/29/2023 2:31 PM CDT DTL RBC <3 <3 /hpf 11/29/2023 2:31 PM CDT DTL WBC None Seen /hpf 11/29/2023 2:31 PM CDT DTL Comment: ----REFERENCE VALUE---- <4 (Males) <11 (Females) Urine 11/29/2023 11:4 1 AM CDT 11/29/2023 1:38 PM CDT us Don Null M.D., M.S. LAB URINE ORDERABLES F inal Result Performing Organization Address City/[facility]/[place]IP [place] [address] * Osmolality, Urine (11/29/2023 11:41 AM CDT) Pathologist [facility] Osmolality, U 560 150 - 1150 mOsm/kg 11/29/2023 2:43 PM CDT DTL Urine 11/29/2023 11:4 1 AM CDT 11/29/2023 1:38 PM CDT us Don Null M.D., M.S. LAB URINE ORDERABLES F inal Result Performing Organization Address [facility] Co de Phone Number [facility] [address] [place] [address] * Urinalysis, with Microscopic: Urine, Straight Catheter [...] ORDERABLES F inal Result Performing Organization Address [facility] Co de Phone Number [facility] [address] [place] [address] * Bacterial Culture, Aerobic + Susceptibility, Urine (11/29/2023 11:41 AM CDT) Urine Culture No growth after 1 day of incubation. 11/30/2023 8:07 AM CDT DTL Urine (Urine, Straight Catheter) 11/29/2023 11:41 AM CDT 11/29/2023 2:36 PM CDT Comment:Specimen Source Site : Urine us Don Null M.D., M.S. LAB MICROBIOLOGY - GEN ERAL ORDERABLES Final Result Performing Organization Address [facility] Co de Phone Number [facility] [address] [place] [address] * MD PANCHO PST VOID RESID US NON IMG, MD UROFLOWMETRY CMPLX, MD CYSTOMETROGRAM COMPLEX (11/29/2023 11:15 AM CDT) Narrative [...]
== END 2024-01-31 11:45 | disposition home or self-care (01) ==
LOC: NFLDREF 02-04 23:54
PROVIDERS: PCP Internal Medicine; Referring Provider Internal Medicine; Visit Provider Internal Medicine
DX: C18.9 Malignant neoplasm of colon, unspecified (principal)
CPT/HCPCS: 82378; 82565

== ENCOUNTER 2024-02-05 14:39 | Outpatient (CLI) | payer BC, SELFPAY ==
--- OUTSIDE RECORDS SUMMARY | 2024-02-05 14:42 | XMS_ITS ---
Author Organization [facility] Address [address] [place] [address] Care Team Providers Care Chassis Inspector Name Role Phone Unavailable Unavailable Unavailable Surgery Details Not on file Complications Check Surgery Details section. Procedure Estimated Blood Loss Check Surgery Details section. Procedure Findings Check Surgery Details section. Procedure Specimens Taken Check Surgery Details section.
--- OUTSIDE RECORDS SUMMARY | 2024-02-05 14:42 | XMS_ITS | Clinical Summary ---
Author Organization [facility] Address [place], [place] [address] Care Team Providers Care Tractor Operator Battery Name Role Phone Margaret Bolden MD Primary [...] durable medical equipment (DME)Indications:Plant ar fasciitis, left [phone] Plantar Fasciitis,Night Splint, Medium 1 Each 08/23/2021 [...] HPV HIGH RISK Routine 03/31/2021 12:00 PM STEEPLE JACK from Last 3 Months or Most Recently Relevant to Health Maintenance Results * HPV HIGH RISK (03/31/2021 12:00 PM STEEPLE JACK) TYPE 16 Negative Negative 04/04/2021 2:16 PM STEEPLE JACK [facility] TYPE 18 Negative Negative 04/04/2021 2:16 PM STEEPLE JACK [facility] OTHER HIGH RISK TYPES Negative Negative 04/04/2021 2:16 PM STEEPLE JACK [facility] TR[facility] LAB[facility] Other (Other) 03/31/2021 12: 00 PM STEEPLE JACK 04/03/2021 7:39 AM STEEPLE JACK [facility]CENTRAL LAB[facility]AT[facility] - 04/04/2021 2:16 PM STEEPLE JACK HPV types 16, 18, 31, 33, 35, 39, 45, 51, 52, 56, 58, 59, 66 and 68 DNA were undetectable or below the pre-set threshold. Methodology: Kendall Yasmine 4800 HPV Test Margaret Bolden MD MICROBIOLOGY [facility]AL LABORATORY [address] [place] [address], from Last 3 Months or Most Recently Relevant to Health Maintenance Care Teams Tractor Operator Battery Relationship Specialty Start Date End Date Margaret Bolden MD [address] [place] [address] PCP - General Family Practice 08/23/21
--- OUTSIDE RECORDS SUMMARY | 2024-02-05 14:42 | XMS_ITS | Encounter Summary ---
Author Organization [facility] Address [address] [place] [address] Care Team Providers Care Inside Sales Agent Name Role Phone Unavailable Primary Care Provider Unavailabl e Reason for Referral * Physical Therapy (Routine) - Authorized Specialty Diagnoses / Procedures Referred By Lowell cox Referred To Contact Physical Therapy Diagnoses Incontinence Urinary Stress And Urge Overactive Bladder Atrophy Pelvic Muscle Disuse Don Null M.D., M.S. 200 [place] [address] Phone: tel: fax: Referral ID Status Reason Start Date Expiration Date V isits Requested Visits Authorized [id number] Authorized Other 11/29/2023 05/30/2025 1 1 Reason for Visit * Appointment Request (Routine) - Closed Specialty Diagnoses / Procedures Referred By Lowell cox Referred To Contact Obstetrics and Gynecology Diagnoses Cystocele Incontinence Urinary Stress And Urge Purvi Holden M.D. Phone: tel: fax: Referral ID Status Reason Start Date Expiration Date Visits Re quested Visits Authorized [id number] Closed 08/27/2023 08/26/2024 1 1 Encounter Details Date Type Department Care Team (Latest Contact Info) Description 11/29/2023 1:00 PM CDT Comprehensive Visit Department of Obstetrics and Gynecology, Division of Urogynecology in [place], [place] [address] [place] [phone] Don Null M.D., M.S. [address] [place] [address] Incontinence Urinary Stress And Urge (Primary Dx); Overactive Bladder; Atrophy Pelvic Muscle Disuse; Cervical Stump Prolapse; Atrophy Vagina Due To Estrogen Deficiency; Parkinsonism Unspecified (HCC) Social History Tobacco Use Types Packs/Day Years Used Date Smoking Tobacco: Never Passive Smoke Exposure: Never Smokeless Tobacco: Never [facility] Utilities Answer Date Recorded In the [...] your living situation today? I [facility] a [facility] place to live 11/27/2023 Comments [...] pelvic muscle stimulator that she purchased on [employer] and she has not use this consistently. 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 [...] symptoms, may consider pessary trial here at [place] with more pessary options. This would primarily [...]
--- OUTSIDE RECORDS SUMMARY | 2024-02-05 14:42 | XMS_ITS | Encounter Summary ---
Author Organization [facility] Address [address] [place] [id number] Care Team Providers Care Dump Truck Operator Name Role Phone Unavailable Primary Care Provider Unavailabl e Reason for Visit * Reason Onset Date Comments Pre-visit Intake 11/27/2023 Encounter Details Date Type Department Care Team (Latest Contact Info) Description 11/27/2023 1:15 PM CDT Clinical Communication Virtual Review in [place], [place] 200 [place] [address] Pre-visit Intake Social History Tobacco Use Types [...] your living situation today? I have a [facility] place to live 11/27/2023 Comments Unknown [...]
--- OUTSIDE RECORDS SUMMARY | 2024-02-05 14:42 | XMS_ITS | Referral Summary ---
Author Organization [facility] Address [address] [place] [address] Care Team Providers Care Cad Administrator Name Role Phone Unavailable Primary Care Provider Unavailabl e Source Comments Patient records contain information from all sites at [facility]. For routine questions regarding patient records, call [phone] during business hours, M-F 8:00 AM - 5:00 PM Central Time. Record requests for emergency care only can be directed to [phone] at any time.[facility] Encounters Date Type Department Care Team Description 11/29/2023 11:15 AM CDT Procedure visit Department of Obstetrics and Gynecology, Division of Urogynecology in [place], [place] [address] [place] [phone] Don Null M.D., M.S. Cystocele Midline (Primary Dx); Incontinence Urinary Stress And Urge 11/29/2023 1:00 PM CDT Comprehensive Visit Department of Obstetrics and Gynecology, Division of Urogynecology in [place], [place] [address] [place] [phone] Don Null M.D., M.S. Incontinence Urinary Stress And Urge (Primary Dx); Overactive Bladder; Atrophy Pelvic Muscle Disuse; Cervical Stump Prolapse; Atrophy Vagina Due To Estrogen Deficiency; Parkinsonism Unspecified (HCC) 11/27/2023 1:15 PM CDT Clinical Communication Virtual Review in [place], [place] 200 [place] [address] Pre-visit Intake 11/26/2023 Documentation Department of Obstetrics and Gynecology, Division of Urogynecology in [place], [place] [address] [place] [address] Franc Perez R.N. from Last 3 Months [...] Exposure: Never Smokeless Tobacco: Never [facility] Utilities Answer Date Recorded In the [...] your living situation today? I have a [facility] place to live 11/27/2023 Comments Unknown Sex [...] Cystocele Midline Incontinence Urinary Stress And Urge AR CYSTOMETROGRAM COMPLEX Routine 11/29/2023 11:15 AM CDT Cystocele Midline Incontinence Urinary Stress And Urge AR UROFLOWMETRY CMPLX Routine 11/29/2023 11:15 AM CDT Cystocele Midline Incontinence Urinary Stress And Urge AR PANCHO PST VOID RESID US NON IMG [...] ORDERABLES F inal Result Performing Organization Address [facility] de Phone Number [facility] [address] [facility] 200 [place] [address] * Microscopic Automated (11/29/2023 11:41 AM CDT) Microscopy Normal 11/29/2023 2:31 PM CDT DTL RBC <3 <3 /hpf 11/29/2023 2:31 PM CDT DTL WBC None Seen /hpf 11/29/2023 2:31 PM CDT DTL Comment: ----REFERENCE VALUE---- <4 (Males) <11 (Females) Urine 11/29/2023 11:4 1 AM CDT 11/29/2023 1:38 PM CDT Don Null M.D., M.S. LAB URINE ORDERABLES F inal Result Performing Organization Address [facility] de Phone Number [facility] [address] [facility] 200 [place] [address] * Bacterial Culture, Aerobic + Susceptibility, Urine (11/29/2023 11:41 AM CDT) Urine Culture No growth after 1 day of incubation. 11/30/2023 8:07 AM CDT DTL Urine (Urine, Straight Catheter) 11/29/2023 11:41 AM CDT 11/29/2023 2:36 PM CDT Comment:Specimen Source Site : Urine Don Null M.D., M.S. LAB MICROBIOLOGY - GEN ERAL ORDERABLES Final Result Performing Organization Address City/[facility]/ZIP Co de Phone Number [facility] [address] 200 [place] [address] * pH, Urine (11/29/2023 11:41 AM CDT) pH, U 6.6 4.5 - 8.0 11/29/2023 2:4 3 PM CDT DTL Urine 11/29/2023 11:4 1 AM CDT 11/29/2023 1:38 PM CDT us Don Null M.D., M.S. LAB URINE ORDERABLES F inal Result Performing Organization Address [facility] Co de Phone Number [facility] [address] 200 [place] [address] * Osmolality, Urine (11/29/2023 11:41 AM CDT) Osmolality, U 560 150 - 1150 mOsm/kg 11/29/2023 2:43 PM CDT DTL Urine 11/29/2023 11:4 1 AM CDT 11/29/2023 1:38 PM CDT us Don Null M.D., M.S. LAB URINE ORDERABLES F inal Result Performing Organization Address City/[facility] Co de Phone Number [facility] [address] 200 [place] [address] * Urinalysis, with Microscopic: Urine, Straight Catheter [...] ORDERABLES F inal Result Performing Organization Address City/State/[facility] Co de Phone Number [facility] [address] [place] [address], [facility] [address] [place] [address] * [place] PANCHO PST VOID RESID US NON IMG, [place] UROFLOWMETRY CMPLX, AR CYSTOMETROGRAM COMPLEX (11/29/2023 11:15 AM CDT) Narrative [...] al Result from Last 3 Months Insurance [facility]
--- OUTSIDE RECORDS SUMMARY | 2024-02-05 14:42 | XMS_ITS | Encounter Summary ---
Author Organization [facility] Address [address] [place] [address] Care Team Providers Care Hr Generalist Name Role Phone Unavailable Primary Care Provider Unavailabl e Encounter Details Date Type Department Care Team (Late st Contact Info) Description 11/26/2023 Documentation Department of Obstetrics and Gynecology, Division of Urogynecology in [place], [place] [address] [place] [phone] Franc Perez, R.N. 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 2 vaginal births, one with severe laceration. Hx of rapid labor. She has no hx of abnormal Pap No hx of STI She is infrequently sexually active PMH: Included L tendonitis Social Hx: She works in [place]. Lives in [place]. She is . Exam: Narrative General: No [...] with some sort of mesh placement at [facility][1] in 2013. We have requested operative reports, [...] Hx of unknown pelvic mesh placement at [facility] in 2013. She is now interested in surgical treatment of incontinence and prolapse. Given her history of pelvic surgery with mesh, I opted to refer her to urogynecology. We discussed the etiologies and multiple treatment options for her condition. 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
--- OUTSIDE RECORDS SUMMARY | 2024-02-05 14:42 | XMS_ITS | Encounter Summary ---
Author Organization [facility] Address [address] [place] [address] Care Team Providers Care Field Service Coordinator Name Role Phone Unavailable Primary Care Provider Unavailabl e Reason for Visit * Outpatient (Routine) - Closed Specialty Diagnoses / Procedures Referred By Lowell t Referred To Contact Diagnoses Cystocele Midline Incontinence Urinary Stress And Urge Procedures OBG Urodynamic Studies Don Null M.D., M.S. [address] [place] [phone] Phone: tel: fax: [facility] Referral ID Status Reason Start Date Expiration Date Visits Re quested Visits Authorized [id number] Closed 08/29/2023 08/28/2024 1 1 Encounter Details Date Type Department Care Team (Latest Contact Info) Description 11/29/2023 11:15 AM CDT Procedure visit Department of Obstetrics and Gynecology, Division of Urogynecology in [place], [place] [address] [place] [phone] Don Null M.D., M.S. [address] [place] [phone] Cystocele Midline (Primary Dx); Incontinence Urinary Stress And Urge Social History Tobacco Use Types Packs/Day Years Used Date Smoking Tobacco: Never Passive Smoke Exposure: Never Smokeless Tobacco: Never [facility] Utilities Answer Date Recorded In the past 12 months has [employer] electric, gas, oil, or water company threatened [...] your living situation today? I have a [facility] place to live 11/27/2023 Comments Unknown [...] Cystocele Midline Incontinence Urinary Stress And Urge [place] CYSTOMETROGRAM COMPLEX Routine 11/29/2023 11:15 AM CDT Cystocele Midline Incontinence Urinary Stress And Urge [place] UROFLOWMETRY CMPLX Routine 11/29/2023 11:15 AM CDT Cystocele Midline Incontinence Urinary Stress And Urge [place] PANCHO PST VOID RESID US NON IMG Routine 11/29/2023 11:15 AM CDT Cystocele Midline Incontinence Urinary Stress And Urge documented in this encounter Results * Dipstick, Urine (11/29/2023 11:41 AM CDT) Pathologist [facility] Hemoglobin, QL, U Negative Negative 11/29/2023 2:31 [...] ORDERABLES F inal Result Performing Organization Address City/[facility]/ZIP Co de Phone Number [facility] [address] 200 [place] [address] * pH, Urine (11/29/2023 11:41 AM CDT) [facility] pH, U 6.6 4.5 - 8.0 11/29/2023 2:4 3 PM CDT DTL Urine 11/29/2023 11:4 1 AM CDT 11/29/2023 1:38 PM CDT us Don Null M.D., M.S. LAB URINE ORDERABLES F inal Result Performing Organization Address City/[facility]/ZIP Co de Phone Number [facility] [address] 200 [place] [address] * Microscopic Automated (11/29/2023 11:41 AM CDT) [facility] Microscopy Normal 11/29/2023 2:31 PM CDT DTL RBC <3 <3 /hpf 11/29/2023 2:31 PM CDT DTL WBC None Seen /hpf 11/29/2023 2:31 PM CDT DTL Comment: ----REFERENCE VALUE---- <4 (Males) <11 (Females) Urine 11/29/2023 11:4 1 AM CDT 11/29/2023 1:38 PM CDT us Don Null M.D., M.S. LAB URINE ORDERABLES F inal Result Performing Organization Address City/[facility]/[place] [address] * Osmolality, Urine (11/29/2023 11:41 AM CDT) Pathologist [facility] Osmolality, U 560 150 - 1150 mOsm/kg 11/29/2023 2:43 PM CDT DTL Urine 11/29/2023 11:4 1 AM CDT 11/29/2023 1:38 PM CDT us Don Null M.D., M.S. LAB URINE ORDERABLES F inal Result Performing Organization Address [facility] Co de Phone Number [facility] [address] [place] [address] * Urinalysis, with Microscopic: Urine, Straight Catheter [...] ORDERABLES F inal Result Performing Organization Address [facility] Co de Phone Number [facility] [address] [place] [address] * Bacterial Culture, Aerobic + Susceptibility, Urine (11/29/2023 11:41 AM CDT) Urine Culture No growth after 1 day of incubation. 11/30/2023 8:07 AM CDT DTL Urine (Urine, Straight Catheter) 11/29/2023 11:41 AM CDT 11/29/2023 2:36 PM CDT Comment:Specimen Source Site : Urine us Don Null M.D., M.S. LAB MICROBIOLOGY - GEN ERAL ORDERABLES Final Result Performing Organization Address [facility] Co de Phone Number [facility] [address] [place] [address] * [place] PANCHO PST VOID RESID US NON IMG, [place] UROFLOWMETRY CMPLX, [place] CYSTOMETROGRAM COMPLEX (11/29/2023 11:15 AM CDT) Narrative Don Null M.D., M.S. - 11/29/2023 11:15 AM CDT Harika Baradles M.D. 11/29/2023 4:00 PM OBG Urodynamic Studies [...]
--- OUTSIDE RECORDS SUMMARY | 2024-02-05 14:42 | XMS_ITS | Clinical Summary ---
Author Organization [facility] Address [address] [place] [address] Care Team Providers Care Retail Support Specialist Name Role Phone Unavailable Primary Care Provider Unavailabl e Source Comments Patient records contain information from all sites at [facility]. For routine questions regarding patient records, call [phone] during business hours, M-F 8:00 AM - 5:00 PM Central Time. Record requests for emergency care only can be directed to [phone] at any time.[facility] Allergies Active Allergy Reactions Criticality Noted Date [...] Obstetrics and Gynecology, Division of Urogynecology in [address] [phone] Don Null M.D., M.S. Incontinence Urinary Stress And Urge (Primary Dx); Overactive Bladder; Atrophy Pelvic Muscle Disuse; Cervical Stump Prolapse; Atrophy Vagina Due To Estrogen Deficiency; Parkinsonism Unspecified (HCC) 11/29/2023 11:15 AM CDT Procedure visit Department of Obstetrics and Gynecology, Division of Urogynecology in [address] [phone] Don Null M.D., M.S. Cystocele Midline (Primary Dx); Incontinence Urinary Stress And Urge 11/27/2023 1:15 PM CDT Clinical Communication Virtual Review in [place], [place] 200 [place] [address] Pre-visit Intake 11/26/2023 Documentation Department of Obstetrics and Gynecology, Division of Urogynecology in [place], [place] [address] [place] [phone] Franc Perez R.N. from Last 3 Months Social History Tobacco Use Types Packs/Day Years Used Date Smoking Tobacco: Never Passive Smoke Exposure: Never Smokeless Tobacco: Never [facility] Utilities Answer Date Recorded In the past [...] your living situation today? I have a [facility] place to live 11/27/2023 Comments Unknown Sex [...] Cystocele Midline Incontinence Urinary Stress And Urge [place] CYSTOMETROGRAM COMPLEX Routine 11/29/2023 11:15 AM CDT Cystocele Midline Incontinence Urinary Stress And Urge [place] UROFLOWMETRY CMPLX Routine 11/29/2023 11:15 AM CDT Cystocele Midline Incontinence Urinary Stress And Urge [place] PANCHO PST VOID RESID US NON IMG Routine 11/29/2023 11:15 AM CDT Cystocele Midline Incontinence Urinary Stress And Urge from Last 3 Months Results * Dipstick, Urine (11/29/2023 11:41 AM CDT) Pathologist [facility] Hemoglobin, QL, U Negative Negative 11/29/2023 2:31 [...] M.S. LAB URINE ORDERABLES F inal Result [facility] [address] [place] [address], [place] [facility] [address] [place] [address] * Microscopic Automated (11/29/2023 11:41 AM CDT) Pathologist [facility] Microscopy Normal 11/29/2023 2:31 PM CDT DTL RBC <3 <3 /hpf 11/29/2023 2:31 PM CDT DTL WBC None Seen /hpf 11/29/2023 2:31 PM CDT DTL Comment: ----REFERENCE VALUE---- <4 (Males) <11 (Females) Urine 11/29/2023 11:4 1 AM CDT 11/29/2023 1:38 PM CDT Don Null M.D., M.S. LAB URINE ORDERABLES F inal Result Performing Organization Address City/[facility]/ZIP Co de Phone Number [facility] [address] 200 [place] [address] * Bacterial Culture, Aerobic + Susceptibility, Urine (11/29/2023 11:41 AM CDT) [facility] Urine Culture No growth after 1 day of incubation. 11/30/2023 8:07 AM CDT DTL Urine (Urine, Straight Catheter) 11/29/2023 11:41 AM CDT 11/29/2023 2:36 PM CDT Comment:Specimen Source Site : Urine Don Null M.D., M.S. LAB MICROBIOLOGY - GEN ERAL ORDERABLES Final Result Performing Organization Address City/[facility]/ZIP Co de Phone Number [facility] [address] [facility] 200 [place] [address] * pH, Urine (11/29/2023 11:41 AM CDT) [facility] pH, U 6.6 4.5 - 8.0 11/29/2023 2:4 3 PM CDT DTL Urine 11/29/2023 11:4 1 AM CDT 11/29/2023 1:38 PM CDT us Don Null M.D., M.S. LAB URINE ORDERABLES F inal Result Performing Organization Address City/[facility]/ZIP Co de Phone Number [facility] 200 [place] [address], [facility] 200 [place] [address] * Osmolality, Urine (11/29/2023 11:41 AM CDT) Osmolality, U 560 150 - 1150 mOsm/kg 11/29/2023 2:43 PM CDT DTL Urine 11/29/2023 11:4 1 AM CDT 11/29/2023 1:38 PM CDT Don Null M.D., M.S. LAB URINE ORDERABLES F inal Result Performing Organization Address [facility] Co de Phone Number [facility] 200 [place] [address], [facility] 200 [place] [address] * Urinalysis, with Microscopic: Urine, Straight Catheter [...] M.S. LAB URINE ORDERABLES F inal Result [facility] [address] [place] [address], [place] DTL [facility] [address] [place] [address] * [place] PANCHO PST VOID RESID US NON IMG, [place] UROFLOWMETRY CMPLX, [place] CYSTOMETROGRAM COMPLEX (11/29/2023 11:15 AM CDT) Narrative [...] al Result from Last 3 Months Insurance [facility]
--- OUTSIDE RECORDS SUMMARY | 2024-02-05 14:43 | XMS_ITS | Clinical Summary ---
Author Organization [facility] Address [address] [place] [address] Care Team Providers Care Commercial Solar Sales Consultant Name Role Phone Shoshana Harding MD Primary Care Provider [phone] Source Comments You are receiving this document as you are listed as the primary care provider,follow-up provider, or the patient has been referred to you for consultation.This is in compliance with the Medicare and[facility] EHR Incentive Program,which states Providers who transition their patient to another setting of careor provider of care or refers their patient to another provider of care shouldprovide summary care record for each transition of care or referral. [employer] Allergies No known active allergies Medications Medication [...] QIV 12/22/19 17 Influenza IIV4 (Quadrivalent) 0.5mL (96615) 11/16 Pfizer Monovalent 12+ Purple Top 02/28/2021,06/16,06/11/2020 [...] age to complete this topic Care Teams Commercial Solar Sales Consultant Relationship Specialty Start Date End Date Shoshana Harding MD [address] [place] [address] PCP - General Internal Medicine 05/24/22
--- NOTE | 2024-02-05 15:00 | CRLHL7_ITS ---
For Patients: As a result of the Century Cures Act, medical imaging exams and procedure reports are released immediately into your electronic medical record. You may view this report before your referring provider. If you have questions, please contact your health care provider. Indication: Newly diagnosed colon cancer Technique: CT chest, abdomen and pelvis after the intravenous administration of 121 cc of Isovue 370 Comparison: Report only lumbar spine radiographs 07/28/2021 Findings: Chest: Heart is normal in size without pericardial effusion. Great vessels are normal in caliber. There is no mediastinal mass or lymphadenopathy. 3 millimeter right upper lobe pulmonary nodule and 3 millimeter right lower lobe pulmonary nodule are identified. 9 x 6 x 7 millimeter lingular nodule is seen well on , just inferior to this is a more linear nodularity which is approximately the same size. Abdomen and pelvis: There is diffuse hepatic steatosis throughout the liver and no suspicious liver masses. The 13 by 12 millimeter indeterminate right adrenal nodule is present. The gallbladder, pancreas, spleen, left adrenal gland and kidneys are normal. Urinary bladder is grossly unremarkable. The uterus is surgically absent and there are no pelvic cysts or masses. Focal thickening versus peristalsis is present within the transverse colon near the splenic flexure and there is a nonspecific elongated density within the right colon extending into the cecum. The hollow viscera is without obstruction or adjacent inflammatory stranding. Right external iliac node measures 14 millimeters in the short axis, additionally there is a left external iliac node which measures 13 millimeters in the short axis. There is no free air or ascites. The abdominal aorta and its major branches are patent and normal in caliber. Soft tissues and bones: Soft tissues are unremarkable. Mild compression fracture is noted at L1 and was previously described on the comparative lumbar spine report. Bones are otherwise age-appropriate. Impression: 1. Enlarged bilateral external iliac nodes, reactive versus metastasis. Recommend FDG PET-CT. 2. 13 millimeter right adrenal nodule, primary adrenal neoplasm versus metastasis. FDG PET-CT will also further characterize. 3. Prominent lingual nodule versus nodular atelectasis. Recommend attention on FDG PET-CT. 4. Elongated density within the right colon may correspond to given history. Correlate with recent colonoscopy. Please note that all CT scans at this facility use dose modulation, iterative reconstruction, and/or weight-based dosing when appropriate to reduce radiation dose to as low as reasonably achievable. Dictated by Reji Lennon MD @ 02/06/2024 4:30:16 PM (Electronically Signed)
== END 2024-02-05 14:40 | disposition home or self-care (01) ==
LOC: CT 14:40
PROVIDERS: PCP Internal Medicine; Visit Provider Internal Medicine
DX: C18.9 Malignant neoplasm of colon, unspecified (principal); R59.0 Localized enlarged lymph nodes; E27.9 Disorder of adrenal gland, unspecified
CPT/HCPCS: 71260; 74177; Q9967

== ENCOUNTER 2024-02-20 14:57 | Outpatient (CLI) | payer BC, SELFPAY ==
--- NOTE | 2024-02-20 15:00 | PE_ITS ---
[facility] [address] [facility] [address] Phone:?[phone] Fax:?[phone] Referring Physician Information: Shoshana Harding M.D. [address] [facility] [address] Phone:?[phone] Fax:?[phone] Patient:Charles Roldan D.O.B:?1965 Sex:?Female Phone:?[phone] [facility] MRN:?[id number] Exam Date:?02/20/2024 EXAM: PET/CT EYES TO THIGHS, CANCER INITIAL STAGING CLINICAL INFORMATION: Colon cancer staging. TECHNICAL INFORMATION: Helical acquisition of data was obtained from the orbits to the upper thighs with reconstruction of 3.75 mm thick images at 3.[address] data was used for attenuation correction. PET scanning was performed through the same anatomic range 54 minutes following administration of 10.71 mCi of 18-FDG delivered intravenously. The patient's glucose at the time of the injection was 126 mg/dL. PET, CT and PET/CT fusion images are interpreted using a computer viewing workstation. PET, CT and PET/CT fusion images were archived and saved in the patient's permanent medical record. COMPARISON: CT CAP from 02/05/2024. INTERPRETATION: Head and Neck: There are no abnormal hypermetabolic foci within the head or neck. There is physiologic uptake in the intracranial soft tissues. Chest: There are no abnormal hypermetabolic foci within the chest. Background mediastinal blood pool uptake has a maximum SUV of 2.88. Focal opacity seen in the lingula on prior CT (Se 2 Im 122) is not hypermetabolic (SUVmax = 1.77), consistent with benign atelectasis. No discrete lung nodules or masses detected on this free-breathing exam. No lymphadenopathy detected. Abdomen and Pelvis: Segmental hypermetabolism in the transverse colon (Se 2 Im 185) is indistinct on CT but has a maximum SUV of 17.16, likely corresponding to the malignancy seen on recent colonoscopy. There are no other abnormal hypermetabolic foci within the abdomen or pelvis. Background hepatic parenchymal uptake has a maximum SUV of 3.96. There is physiologic excretion of radiotracer in the urine and bowel. No abdominopelvic lymphadenopathy in terms of size, morphology, or metabolic rate. No abnormal FDG uptake of the right adrenal gland. Skeleton, Musculature, and Integument: No abnormal hypermetabolic foci within the skeleton. No adam osteoblastic or osteolytic disease. CONCLUSION: 1. Segmental hypermetabolism in the transverse colon likely corresponds to the malignancy seen on recent colonoscopy. 2. No hypermetabolic sam or distant metastasis identified from the vertex to midthighs. 3. Recent CT observations in the right adrenal gland and external iliac lymph nodes have no scintigraphic correlate, likely benign. Electronically signed on 02/21/2024 10:43:00 AM by Jacky Kidd M.D.
== END 2024-02-20 14:58 | disposition home or self-care (01) ==
LOC: RAD 14:58
PROVIDERS: PCP Internal Medicine; Visit Provider Internal Medicine
DX: C18.9 Malignant neoplasm of colon, unspecified (principal)
CPT/HCPCS: 78815; A9552

== ENCOUNTER 2024-03-16 16:32 | Outpatient (CLI) | payer BC, SELFPAY | END 2024-03-16 16:33 | disposition home or self-care (01) | LOC: NFLDREF 16:34 | PROVIDERS: PCP Internal Medicine; Visit Provider Internal Medicine | DX: Z01.818 Encounter for other preprocedural examination (principal); C18.9 Malignant neoplasm of colon, unspecified | CPT/HCPCS: 80053; 82728 ==

== ENCOUNTER 2024-03-27 09:23 | Outpatient (CLI) | payer BC, SELFPAY | END 2024-03-27 09:24 | disposition home or self-care (01) | LOC: NFLDREF 04-04 21:44 | PROVIDERS: PCP Internal Medicine; Referring Provider Internal Medicine; Visit Provider Internal Medicine | DX: E87.6 Hypokalemia (principal) | CPT/HCPCS: 80048 ==

== ENCOUNTER 2024-04-03 10:30 | Outpatient (RCR) | payer BC, SELFPAY | END 2024-04-03 12:00 | disposition home or self-care (01) | PROVIDERS: PCP Internal Medicine; Visit Provider Obstetrics & Gynecology | DX: G20.A1 Parkinson's disease without dyskinesia, without mention of fluctuations (principal); Z51.89 Encounter for other specified aftercare; Z01.818 Encounter for other preprocedural examination; C18.9 Malignant neoplasm of colon, unspecified | CPT/HCPCS: 80053; 82728; 97110; 97112; 97162; 97535 ==

== ENCOUNTER 2024-04-05 13:46 | Emergency (ER) | payer BC, SELFPAY ==
[2024-04-05 13:56] VITALS: BP 115/70; PULSE 89; RESP 18; TEMP 37.7; O2SAT 94; BMI 39.1
--- NOTE | 2024-04-05 14:18 | CRLHL7_ITS ---
For Patients: As a result of the Cures Act, medical imaging exams and procedure reports are released immediately into your electronic medical record. You may view this report before your referring provider. If you have questions, please contact your health care provider. INDICATION: Cough, weakness. TECHNIQUE: Chest 2 view(s) COMPARISON: CT chest/abdomen/pelvis dated 02/05/2024. FINDINGS: Cardiomediastinal silhouette and pulmonary vasculature are normal. Streaky right basilar opacities, likely atelectasis. No focal consolidation. No layering pleural effusion. No pneumothorax. Multilevel degenerative changes of the visualized spine. IMPRESSION: Streaky right basilar opacities, likely atelectasis. No focal consolidation. Dictated by Felicia Friedman MD @ 04/05/2024 3:03:08 PM (Electronically Signed)
--- NOTE | 2024-04-05 14:24 | ED.GENADULT ---
HPI - General Adult General Chief complaint: Fever Stated complaint: internal bleeding, low hemoglobin, dizzy lighthead Time Seen by Provider: 04/05/24 14:02 History of Present Illness HPI narrative: Patient is a 58-year-old woman who was recently diagnosed with colon cancer. She presents with generalized weakness fatigue malaise nonproductive cough fevers and chills. She is not hypoxic. She is uncertain whether she has had any dark tarry stools or bright red blood per rectum as she is currently on iron. She has been diagnosed with Benavidez syndrome and scheduled for surgery in approximately 5 days. She is concerned that she may be anemic or have some type of infection. No dysuria noted. Related Data Home Medications ?Medication ?Instructions ?Recorded ?Confirmed sumatriptan succinate 25 mg tablet See Rx Instructions PO .COMPLEX 09/29/21 04/05/24 biotin 1 cap PO DAILY 04/09/22 04/05/24 fluticasone propionate 50 1 spray intranasal BID PRN 04/09/22 04/05/24 mcg/actuation nasal spray,suspension glucosamine-chondroitin 1 tab PO DAILY 04/09/22 04/05/24 ondansetron HCl 4 mg tablet 4 mg PO PRN 04/09/22 03/16/24 potassium 180 mg PO DAILY 04/09/22 04/05/24 cholecalciferol (vitamin D3) 125 125 mcg PO QDAY 07/23/22 04/05/24 mcg (5,000 unit) capsule carbidopa 25 mg-levodopa 100 mg 1 tab PO 3XD 07/29/23 04/05/24 tablet duloxetine 20 mg capsule,delayed 40 mg PO BID 03/16/24 04/05/24 release Previous Rx's ?Medication ?Instructions ?Recorded estradiol 0.01% (0.1 mg/gram) 0.5 g vaginal 2XW #42.5 grams 02/25/23 vaginal cream (Estrace) atenolol 50 mg tablet 50 mg PO BID #180 tabs 07/29/23 hydrochlorothiazide 25 mg tablet 25 mg PO QDAY #90 tabs 07/29/23 simvastatin 5 mg tablet 5 mg PO QDAY #90 tabs 07/29/23 potassium chloride 20 mEq 40 meq (2 x 20 mEq) PO QDAY #60 03/17/24 tablet,extended release tabs nirmatrelvir 300 mg (150 mg See Rx Instructions PO .COMPLEX 04/05/24 x2)-ritonavir 100 mg tablet,dose #30 ea pack (Paxlovid) Allergies Allergy/AdvReac Type Severity Reaction Status Date / Time amlodipine Allergy Intermediate Vomiting Verified 04/05/24 14:07 cephalexin Allergy Intermediate not listed Verified 04/05/24 14:07 lisinopril Allergy Intermediate Vomiting Verified 04/05/24 14:07 Review of Systems Status of ROS: Reports: 10 or more systems reviewed and unremarkable except as noted in History and below PFSH PFSH Surgical History History of hysterectomy, supracervical ?Z90.711 - Acquired absence of uterus with remaining cervical stump (ICD-10) History of nasal surgery (2011) ?Z98.890 - Other specified postprocedural states (ICD-10) History of hysterectomy for benign disease (06/03/13) ?Z90.710 - Acquired absence of both cervix and uterus (ICD-10) Family History Aunt Breast cancer, Onset Age: 70 Maternal Grandfather Breast cancer, Onset Age: 70 Mother Diabetes Mental disorder Malignancy Family/Other Depression Son Testicular cancer Social History Narrative: does not drink alcohol does not have regular exercise regimen- 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 EYES: No scleral icterus. LYMPH: No supraclavicular or cervical lymphadenopathy. SKIN: Visible skin seen during exam normal or with benign process only. EXT: No dependent lower extremity pedal edema. HEART: Regular rate and rhythm with no murmurs, rubs, or gallops. LUNGS: Clear to auscultation bilaterally with no crackles or wheezes. ABD: Soft, non tender, non distended. PSYCH: Good eye contact, speech is not pressured. Const: Vital Signs, click to edit/add: Vital Signs - 24 hr 04/05/24 13:56 04/05/24 14:35 04/05/24 15:12 Temperature 99.8 F H Pulse Rate [Pulse Oximeter] 89 87 Respiratory Rate 18 18 Blood Pressure [Ri ght Upper Arm] 115/70 119/69 Pulse Oximetry 94 93 Oxygen Delivery Me thod Room Air Room Air Room Air Course Course ED Course: Patient seen examined. Triple swab collected. Chest x-ray CBC comprehensive metabolic panel pending. Vital Signs Vital signs: Initial Vital Signs Temperature 99.8 F H 04/05/24 13:56 Temperature Source Temporal Artery Scan 04/05/24 13:56 Pulse Rate 89 04/05/24 13:56 Respiratory Rate 18 04/05/24 13:56 Blood Pressure 115/70 04/05/24 13:56 Blood Pressure Mean 85 04/05/24 13:56 Blood Pressure Position Sitting 04/05/24 13:56 Pulse Oximetry 94 04/05/24 13:56 Oxygen Delivery Method Room Air 04/05/24 13:56 Vital Signs Temperature 99.8 F H 04/05/24 13:56 Pulse Rate 89 04/05/24 13:56 Respiratory Rate 18 04/05/24 13:56 Blood Pressure 115/70 04/05/24 13:56 Pulse Oximetry 94 04/05/24 13:56 Oxygen Delivery Method Room Air 04/05/24 13:56 Temperature 99.8 F H 04/05/24 13:56 Pulse Rate 87 04/05/24 15:12 Respiratory Rate 18 04/05/24 15:12 Blood Pressure 119/69 04/05/24 15:12 Pulse Oximetry 93 04/05/24 15:12 Oxygen Delivery Method Room Air 04/05/24 15:12 Medical Decision Making MDM Narrative Medical decision making narrative: Patient is a 58-year-old woman who presents with cough and congestion as well as weakness. She is currently getting ready for partial colectomy at [facility] for a newly diagnosed colon cancer with Benavidez syndrome. She has a really unremarkable workup with regards to her chest x-ray electrolytes. Hemoglobin stable 9.2. She does test positive for COVID-19. This time I did place her on Paxil of id recommended 5 days of isolation as well as masking for 5 days. She will contact [facility] to discuss the timing of her surgery. Lab Data Labs: Lab Results 04/05/24 04/05/24 Range/Units 14:15 14:58 WBC 7.22 (4.50-11.00) K/uL RBC 3.94 L (4.00-5.20) m/uL Hgb 9.2 L (12.0-16.0) gm/dL Hct 31.3 L (33.0-51.0) % MCV 79 L (80-100) fL MCH 23 L (26-34) pg MCHC 29 L (32-36) gm/dL RDW Coeff of Steve 26.0 H (11.5-15.5) % Plt Count 388 (140-440) K/uL Neut % (Auto) 71.1 (42.0-72.0) % Lymph % (Auto) 6.5 L (20-44) % Glasscock % (Auto) 20.9 H (0.0-11.0) % Eos % (Auto) 0.4 (0.0-7.0) % Baso % (Auto) 0.1 (0.0-3.0) % Neut # (Auto) 5.13 (1.7-7.0) K/uL Lymph # (Auto) 0.50 L (0.90-2.90) K/uL Glasscock # (Auto) 1.50 H (0.00-0.90) K/UL Eos # (Auto) 0.03 (0.00-0.50) K/uL Baso # (Auto) 0.01 (0.00-0.30) K/uL Abs Immat Gran (auto) 0.07 (0.00-0.30) K/uL Imm/Tot Granulo (auto) 1.0 % Sodium 135 (135-149) mmol/L Potassium 3.0 L (3.6-5.1) mmol/L Chloride 99 (96-114) mmol/L Carbon Dioxide 28 (20-32) mmol/L Anion Gap 8 (7-15) mEq/L BUN 13 (7-30) mg/dL Creatinine 0.5 (0.5-1.5) mg/dL Estimated Creat Clear 110.36 Estimated GFR 109 ml/min Glucose 136 H (60-115) mg/dL Calcium 9.1 (8.4-10.6) mg/dL Total Bilirubin 0.4 (0.1-1.5) mg/dL AST 28 (12-35) U/L ALT 8 (4-35) U/L Alkaline Phosphatase 64 (40-150) U/L Total Protein 7.2 (6.0-8.3) g/dL Albumin 4.2 (3.3-5.0) g/dL SARS-CoV-2 (PCR) POSITIVE SARS-CoV-2 A (Negative) Influenza Type A (PCR) Negative PCR FLU A (Negative) Influenza Type B (PCR) Negative PCR FLU B (Negative) RSV (PCR) Negative PCR RSV (Negative) Discharge Plan Discharge Clinical Impression: COVID-19 Patient Disposition: Home, Self-Care Condition: Stable Instructions: COVID-19 (Coronavirus Disease 2019) (ED) Additional Instructions: 5 days of isolation 5 additional days of masking. Hold simvastatin while on Paxilovid Tylenol Contact [facility] to discuss timing of upcoming surgery. Activity Level: No Restrictions Discharge Diet: Regular Prescriptions: New Paxlovid 300 mg (150 mg x 2)-100 mg tablets,dose pack See Rx Instructions .ROUTE .COMPLEX Qty: 30 0RF Rx Instructions: take TWO 150 mg tablets of nirmatrelvir with ONE 100 mg tablet of ritonavir twice daily for 5 days No Action cholecalciferol (vitamin D3) 125 mcg (5,000 unit) capsule 125 mcg PO QDAY duloxetine 20 mg capsule,delayed release(DR/EC) 40 mg PO BID carbidopa-levodopa 25-100 mg tablet 1 tab PO 3XD simvastatin 5 mg tablet 5 mg PO QDAY Qty: 90 3RF hydrochlorothiazide 25 mg tablet 25 mg PO QDAY Qty: 90 3RF atenolol 50 mg tablet 50 mg PO BID Qty: 180 3RF estradiol [Estrace] 0.01 % (0.1 mg/gram) cream 0.5 g vaginal 2XW Qty: 42.5 3RF Rx Instructions: Use nightly for 2 weeks, then twice weekly. May apply with finger. sumatriptan succinate 25 mg tablet See Rx Instructions PO .COMPLEX Rx Instructions: take 1 tab at onset of headache; if no relief may repeat 1 tab after at least 2 hrs; max = 4 tabs/24 hr PO ondansetron HCl 4 mg tablet 4 mg PO PRN fluticasone propionate 50 mcg/actuation spray,suspension 1 spray intranasal BID PRN potassium 180 mg PO DAILY glucosamine-chondroitin 1 tab PO DAILY biotin 1 cap PO DAILY potassium chloride 20 mEq tablet extended release 40 meq PO QDAY Qty: 60 2RF Follow Up/Referrals: Shoshana Harding MD [Primary Care Provider] - Stand Alone Forms: [employer] Info Instructions
--- OUTSIDE RECORDS SUMMARY | 2024-04-05 14:42 | XMS_ITS | Clinical Summary ---
Author Organization [facility] Address [address] , [address] [place] [address] Phone Care Team Providers Care Metals Analyst Name Role Phone 1CareTeamNurse-MA, 1CareTeamNurse-MA Unavailable Unavailable Conditions or Problems Problem Name Problem Code Onset Date Status Entry Date Provider Comment Standard Description Annotate Obstructive sleep apnea ([facility] 2023: severe; AHI 30.1; RDI 57.8; douglas 82%) 11291081 (SNOMED CT) 08/26 Active 08/27 Don Chu Jr, MD Obstructive sleep apnea syndrome Tonsillar hypertrophy, bilateral 3+ 87862283 (SNOMED CT) 07/04 Active 07/04 Don Chu Jr, MD Hypertrophy of tonsils Insomnia 765204296 (SNOMED CT) 07/04 Active 07/04 Don Chu Jr, MD Insomnia Sleep deprivation 929564779 (SNOMED CT) 07/04 Active 07/04 Don Chu Jr, MD Sleep deprivation 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 (ICD-10-CM) 07/04 Active 07/04 Don Chu Jr, MD Circadian rhythm sleep disorder, delayed sleep phase type Parasomnia 03771081 (SNOMED CT) 07/04 Active 07/04 Don Chu Jr, MD Parasomnia Snoring 22501151 (SNOMED CT) 07/04 Active 07/04 Don Chu Jr, MD Snoring Parkinsonism, unspecified 48940777 (SNOMED CT) 05/19 Active 05/19 Omer Blevins MD Parkinsonism Sleep disorder 28295868 (SNOMED CT) 05/19 Active 05/19 Omer Blevins MD Sleep disorder Tremor 30970723 (SNOMED CT) 04/08 Active 04/08 Omer Blevins MD Tremor Abnormal reflex 80965286 (SNOMED CT) 06/15 Active 06/15 Omer Belvins MD Abnormal reflex Neuropathic pain 215475078 (SNOMED CT) 06/10 Active 06/10 Aaron Erwin MD Neuropathic pain Numbness tingling bilat legs below knees 690933005 (SNOMED CT) 06/10 Active 06/10 Aaron Erwin MD Paresthesia of lower extremity Peripheral polyneuropathy 534190660 (SNOMED CT) 06/10 Active 06/10 Aaron Erwin MD Peripheral nerve disease Medications Medication Instructions Start Date Stop Date Generic Name NDC Provider CARBIDOPA-LEVODOPA 25-100 MG TABS TAKE 1 TABLET BY MOUTH THREE TIMES DAILY 09/24 carbidopa-levodop a [id number] Omer Blevins MD CARBIDOPA-LEVODOPA 25-100 MG TABS Take 1 tablet by mouth three times a day 12/02 carbidopa-levodop a 09041738767 Omer Blevins MD CARBIDOPA-LEVODOPA 25-100 MG TABS Take 1 tablet by mouth three times a day 07/24 carbidopa-levodop a 94719879420 Omer Blevins MD CARBIDOPA-LEVODOPA 25-100 MG TABS TAKE 1 TABLET BY MOUTH THREE TIMES DAILY 09/24 carbidopa-levodop a 33128337593 Omer Blevins MD CARBIDOPA-LEVODOPA 25-100 MG TABS Take 1 tablet by mouth three times a day 07/24 carbidopa-levodop a 66597292859 Omer Blevins MD DULOXETINE HCL 20 MG CPEP TAKE 1 CAPSULE BY MOUTH TWICE DAILY 12/05 duloxetine 56757363337 Omer Blevins MD DULOXETINE HCL 20 MG CPEP TAKE 1 CAPSULE BY MOUTH TWICE DAILY 12/05 duloxetine 65852114139 Luis Nichols PA-C DULOXETINE HCL 20 MG CPEP TAKE 1 CAPSULE BY MOUTH EVERY DAY 12/05 duloxetine 96450852252 Omer Blevins MD SIMVASTATIN 5 MG TABS simvastatin 17410278399 Omer Blevins MD DULOXETINE HCL 20 MG CPEP Take 1 capsule by mouth once a day 06/10 duloxetine 15646804903 Aaron Erwin MD DULOXETINE HCL 20 MG CPEP TAKE 1 CAPSULE BY MOUTH EVERY DAY 12/05 duloxetine 80621679391 Aaron Erwin MD HYDROCHLOROTHIAZIDE 25 MG TABS Take 1 tablet by mouth once a day 04/21 hydrochlorothiazi de 18321821598 Aaron Erwin MD SUMATRIPTAN SUCCINATE 50 MG TABS tablet by mouth 04/21 sumatriptan succinate 16687168683 Aaron Erwin MD ATENOLOL 50 MG TABS tablet by mouth 04/21 atenolol 31201931662 Aaron Erwin MD DULOXETINE HCL 20 MG CPEP Take 1 capsule by mouth once a day 06/10 duloxetine 01474132209 Aaron Erwin MD AMITRIPTYLINE HCL 25 MG TABS TAKE 1 TABLET BY MOUTH EVERYDAY AT BEDTIME 05/10 AMITRIPTYLINE HCL 45324549641 Stefany Mazariegos PA-C DULOXETINE HCL 20 MG CPEP Take one capsule per day 06/10 DULOXETINE HCL 84222300105 Aaron Erwin MD HYDROCHLOROTHIAZIDE 25 MG TABS TAKE 1 TABLET BY MOUTH EVERY DAY 04/21 HYDROCHLOROTHIAZI DE 11955410561 Aaron Erwin MD AMITRIPTYLINE HCL 25 MG TABS TAKE 1 TABLET BY MOUTH EVERYDAY AT BEDTIME 05/10 AMITRIPTYLINE HCL 73288848636 Aaron Erwin MD SUMATRIPTAN SUCCINATE 50 MG TABS 04/21 SUMATRIPTAN SUCCINATE 04796879313 Aaron Erwin MD ATENOLOL 50 MG TABS 04/21 ATENOLOL 47587097248 Aaron Erwin MD Medications Administered No information available. Allergies, Adverse Reactions, Alerts Allergy Name Reaction Description Start Date Severity Statu s Provider AMLODIPINE BESYLATE Moderate Active Aaron Erwin MD LISINOPRIL Moderate Active Aaron De Santiago i, MD CEPHALEXIN Critical Active Aarontanner De Santiago i, MD Results Date Name Value Unit Range Flag Description Internal Other: Verbal Autho rization/Emergency Contact - OBS VERBAL_EMER DONE Verbal au thorization and emergency contact Replaced Document: (P) GLUCO SE TOLERANCE TEST, 2 SPECIMENS (75G), IMMUNOFIXATIO ... HOMOCYSTEINE * umol/L homocyst eine, plasma, quantitative IFEINTERPUR * immunofix ation electrophoresis interpretation, urine COMMENT#1 * COMMENT #1 [id number] 188 mg/dL <140 H GE use only - for LinkLogic import when terms are not otherwise specified Replaced Document: (P) VITAM IN B12, HEMOGLOBIN A1c, VITAMIN B6, PLASMA, METHYLM ... METHYL MALON * nmol/L methylma lonic acid (MMA), serum VIT B6 * VITAMIN B6, P LASMA HGBA1C 5.8 % OF TOTAL HGB % <5.7 H Hemoglobin A1c/Hemoglobin, total in Blood - % B-12 * pg/mL Cobalamin (Vi tamin B12) [Mass/volume] in Serum or Plasma Replaced Document: (P) PROTE IN, TOTAL AND PROTEIN ELECTROPHORESIS W/SCAN, MAGNE ... MAGNESIUM 1.9 mg/dL 1.5-2.5 N Magnesium [Moles/volume] in Serum or Plasma INTRP * Interpretatio n ABNPROTBND3 * g/dL Abnormal Protein Band 3, g/dL ABNPROTBND2 * g/dL Abnormal Protein Band 2, g/dL ABNPROTBND * g/dL Abnormal P rotein Band 1, g/dL GAMMA GLOB * mg/dL Gamma glob ulin [Mass/volume] in Serum or Plasma by Electrophoresis [id number] * g/dL beta 2 g lobulin [id number] * g/dL beta 1 g lobulin ALPHA 2 GLOB * Alpha 2 globulin [Mass/volume] in Serum or Plasma by Electrophoresis ALPH-1 SR PE * g/dL alpha-1 globulin, serum, by protein electrophoresis ALBUM SER PE * g/dL albumin, serum by protein electrophoresis PROTEIN, TOT * g/dL Protein [Mass/volume] in Serum or Plasma Office Visit: NSLE SMOK STATUS never smoker Tobacco smoking status Office Visit: [facility] FSLE; cont CPAP, melatonin 5mg; ENT re: tonsils MEDS REVIEW Done Documenta tion of current medications (procedure) Internal Other: Authorizatio n - OBS [email or web address] Yes Authoriza tion: Release of Information - Authorize [facility] - Payment and Healthcare Operations ROIAUTHOTHER Yes Authoriz ation: Release of Information - Authorize Others/Insurance - Payment and Healthcare Operations HIECONSENT Yes Consent To Release information to the Health Information Exchange (HIE) [email or web address] Yes Authorizat ion: Authorization for [facility] to leave messages, voicemail, send text messages, send emails AUTHRELHCARE Yes Authoriz ation: Release/Retrieval of Information to/from Healthcare Facilities, Pharmacy Benefit Payers and Providers AUTHPRIVPRAC Yes Authoriz ation: Notice of privacy practices AUTHBENEFIT Yes Authoriza tion: Assignment of Benefits and Payment Agreement Plan of Care Type Date Detail Appointment 01:40 PM Omer Blevins MD , [address], [address], [place], [address], Appointment 11:15 AM Don ceballos Jr, MD, [address], [address], [place], [address], Referral ENT Referral Referral ENT Referral Pending order Follow up Extend ed Pending order Follow up Extend ed Pending order CPAP Mask Fittin g Pending order Patient Instruct ions Pending order Follow up Sleep Pending order Follow up Extend ed Pending order CPAP Handout Pending order List of DME's Pending order Sleep Apnea Hand out Pending order CPAP Order Pending order Overnight PSG w/ 4 Limb Montage - Sleep Study Overnight Pending order Patient Instruct ions Pending order Sleep Hygiene Ti ps Handout Pending order Patient Instruct ions Pending order Follow up Extend ed telemedicine Pending order Sleep NEW Consul t w/ Sleep Physician Pending order LSVT [place] d Therapy Pending order LSVT [place] and Gab[place] Therapy Pending order Follow up CAR[facility] Pending order Follow up [facility] Pending Order exclud ed from report: Pending order Magnesium Serum Pending order Protein Electrop horesis Serum w/Interp Pending order LINETTE Scan Pending order Follow up after testing Pending order Follow up [facility] Pending order MRI-Brain W/WO Pending order MRI-Cervical W/W O Pending order Hemoglobin A1C Pending order Methylmalonic Ac id Serum (MMA) Pending order Vitamin B6 (Pyri doxine) - fasting after midnight Pending order Vitamin B12 Pending order We will contact you with test results Pending order Follow up Pending order Follow up [facility]A Pending order Glucose Fast & 2 hr (2 hr GTT) Pending order Homocysteine Pending order Immunofixation S jes Pending order Methylmalonic Ac id Serum (MMA) Pending order Patient Instruct ions Procedures Code Procedure Name Date Entry Date ORDERS Patient Instructions CPT-G2211 Complex e/m visit add on 202 06/22/18 [facility]-[id number] Documentation of current medicatio ns ORDERS Follow up Extended 4 ORDERS CPAP Handout ORDERS List of DME's ORDERS Sleep Apnea Handout ORDERS CPAP Order ORDERS Overnight PSG w/ 4 L imb Montage - Sleep Study Overnight CPT-92597 PSG, with CPAP - 6yrs or older (10653) 20 08/09/10 ORDERS Patient Instructions ORDERS Sleep Hygiene Tips Handout 2 ORDERS Patient Instructions ORDERS Sleep NEW Consult w/ Sleep Physician 2023 ORDERS Follow up Extended telemedicine 9 [facility]-[id number] Documentation of current medicatio ns ORDERS Follow up CAR[facility] ORDERS Protein Electrophoresis Serum w/Interp 10/04/25 ORDERS Magnesium Serum SCT-[id number] Documentation of current medicatio ns ORDERS LINETTE Scan ORDERS Follow up after testing 2023 ORDERS Follow up [facility] [id number] ProHance Gadolinium- based MR Contrast - 20 ml vial CPT-98077 MRI Brain W/WO CPT-57664 MRI Cervical W/WO [id number] MRI-Cervical W/WO [id number] MRI-Brain W/WO ORDERS Vitamin B12 ORDERS Vitamin B6 (Pyridoxi ne) - fasting after midnight ORDERS Methylmalonic Acid Serum (MMA) ORDERS Hemoglobin A1C ORDERS We will contact you with test results 05/18/30 ORDERS Follow up [facility]-[id number] Documentation of current medicatio ns ORDERS Follow up [facility] ORDERS Patient Instructions ORDERS Glucose Fast & 2hr (2 hr GTT) ORDERS Homocysteine ORDERS Immunofixation Serum ORDERS Methylmalonic Acid Serum (MMA) Vital Signs Date Name Value Unit Description Height 66 [in_us] height E&M BMI (Body Mass Index) 35.64 kg/m2 Bod y Mass Index (Ratio) Respiratory Rate 16 /min respirat ory rate E&M Weight Measured 220 [lb_av] weight E& M Weight Measured 100.00 kg weight in kilograms E&M Immunizations No information available. Advance Directives No information available.
--- OUTSIDE RECORDS SUMMARY | 2024-04-05 14:42 | XMS_ITS | Continuity of Care Document ---
Author Organization [facility] Address [address] [address] [place] [address] Phone Care Team Providers Care Staffing Operations Manager Name Role Phone Pascale Hugo CRNA Unavailable [...] Diagnoses Date Provider Providers Copied on Encounter [facility], [address] [address], [place], [id number], [place] tel:[phone] [facility] No Information 1 Bethel Ashraf. [address], [place], [place], [id number], [place]. tel:[phone] Referring Provider: Luis Rosalba ORTA, [address], [place], [address]. tel:[phone] [facility], [address] [address], [place], [place], [id number], [place] tel:[phone] [facility] GI Symptoms or Concerns (chief complaint) Colorectal polypsHemorrhoids , internalEncounter for screening for malignant neoplasm of colonBenign neoplasm of ascending colonBenign neoplasm of descending colonPersonal history of colonic polyps 1 Rosalba Mckeon. [address], [place], [place], [id number], [place]. tel:[phone] Referring Provider: Referral Self, USE FOR SELF REFERRALS. [facility], [address] [address], [place], [place], [id number], [place] tel:[phone] [facility] No Information 1 Rosalba Mckeon. [address], [place], [place], [id number], [place]. tel:[phone] [facility] REINA, [address] [address], [place], [address], [place] tel:[phone] [facility] Encounter for screening colonoscopyColore ctal polyp detected on colonoscopyBenign neoplasm of ascending colonBenign neoplasm of transverse colonEncounter for screening for malignant neoplasm of colonPolyp of colon 8 Pastora Quintana. [address], [address], [place], [place], [id number], [place]. tel:[phone] Referring Provider: Sandra Cuellar MD W, [place], [address]. tel:[phone] Family History Family Member Type Diagnosis Age [...] Canine Kidney, preservative free, quadrivalent administered Note: MS IC bi- directional interface ; Source: Other Registry tetanus and diphtheria toxoi ds, adsorbed, preservative free, for adult use (5 Lf of tetanus toxoid and 2 Lf of diphtheria toxoid) administered Note: MIIC bi-direct ional interface ; Source: Other Registry Influenza, seasonal, injecta ble, preservative free administered Note: MIIC bi-direct ional interface ; Source: Other Registry Afluria Qd 1591-3687 administered Note: M IIC bi-directional interface ; [...] type Covered alliance party ID [facility] [id number] Social History Type Description Quantity Date Captured [...]
--- OUTSIDE RECORDS SUMMARY | 2024-04-05 14:42 | XMS_ITS | Continuity of Care Document ---
Author Name Nw[facility]IN User [id number]-a llowed Address Unknown Organization Unknown Address Unknown Procedures FILTER APPLIED:Only known Procedures with Onset Date within the last 5 years Procedure Date Procedure Provider Deirdre garza Information Status METABOLIC PANEL TOTAL CA (61773) Completed LIPID PANEL (15779) Comp leted THERAPEUTIC ACTIVITIES (25136) Completed GAIT TRAINING THERAPY (54561) Completed NEUROMUSCULAR REEDUCATION (95801) Completed URINE CULTURE/COLONY COUNT (93292) Completed URINE CULTURE/COLONY COUNT (28266) Completed URINALYSIS AUTO W/O SCOPE (18597) Completed MICROSCOPIC EXAM OF URINE (96055) Completed MICROBE SUSCEPTIBLE SADA (37136) Completed CARMELA MDLTY 1+ULTRASOUND EA 15 (08838) Completed CARMELA MDLTY 1+IONTPHRSIS EA 15 (06337) Completed MANUAL THERAPY 1/> REGIONS (62108) Completed OT EVAL LOW COMPLEX 30 MIN (36306) Completed THERAPEUTIC ACTIVITIES (76782) Completed LIPID PANEL (34822) Comp leted NEUROMUSCULAR REEDUCATION (52527) Completed THERAPEUTIC EXERCISES (93374) Completed PT EVAL MOD COMPLEX 30 MIN (69811) Completed SELF CARE MNGMENT TRAINING (28139) Completed Encounters FILTER APPLIED:Only known Encounters with Admission Date within the last 5 years Encounter Location Admission Discharge Billing Code Community Mental Health Worker Joseph lee Outpatient Mikki Harding Outpatient [facility]ia [facility] Out[facility] Outpatient [facility]oshana Hard[facility] Omer Blevins
--- OUTSIDE RECORDS SUMMARY | 2024-04-05 14:43 | XMS_ITS | Clinical Summary ---
Author Organization [facility] Address [address] [place] [address] Care Team Providers Care Firearms Inspector Name Role Phone Shoshana Harding MD Primary Care Provider [phone] Source Comments You are receiving this document as you are listed as the primary care provider,follow-up provider, or the patient has been referred to you for consultation.This is in compliance with the Medicare and[facility] EHR Incentive Program,which states Providers who transition their patient to another setting of careor provider of care or refers their patient to another provider of care shouldprovide summary care record for each transition of care or referral. Music KickupPartApollidon Allergies No known active allergies Medications Medication [...] QIV 12/22/19 17 Influenza IIV4 (Quadrivalent) 0.5mL (76877) 11/16 Pfizer Monovalent 12+ Purple Top 02/28/2021,06/16,06/11/2020 [...] age to complete this topic Care Teams Firearms Inspector Relationship Specialty Start Date End Date Shoshana Harding MD [address] [place] [address] PCP - General Internal Medicine 05/24/22
--- OUTSIDE RECORDS SUMMARY | 2024-04-05 14:43 | XMS_ITS | Clinical Summary ---
Author Organization [facility] Address [place], [place] [address] Care Team Providers Care Business Banking Sales Assistant Name Role Phone Margaret Bolden MD Primary Care Provider + Allergies Active Allergy Reactions Criticality Noted Date Comments Amlodipine GI Upset High 07/28/2021 Cephalexin Stomach Upset High 07/28/2021 Lisinopril GI Upset High 07/28/2021 Medications atenoloL (TENORMIN) 50 mg tablet Take 50 mg by mouth 2 times daily. 06/16/2021 Active fluticasone (50 mcg per actuation) nasal solution (FLONASE) Twice A Day Active hydroCHLOROthia zide (HCTZ) 25 mg tablet Take 25 mg by mouth once daily. 06/16/2021 Active SUMAtriptan (IMITREX) 50 mg tablet TAKE 1 TABLET AT ONSET OF HEADACHE, MAY REPEAT EVERY 2 HOURS NEEDED , MAX 200 MG/24 HRS 06/16/2021 Active durable medical equipment (DME)Indication s:Plantar fasciitis, left [id number] Plantar Fasciitis,Ni ght Splint, Medium 1 Each 08/23/2021 Active Social History Tobacco Use Types Packs/Day Years Used Date Smoking Tobacco: Never Assessed Comments Unknown Sex and Gender Information Value Date Recorded Sex Assigned at Not on file Legal Sex Female 5:50 PM STUDENT ADVISOR Gender Identity Not on file Sexual Orientation [...] age 18+ 10/12/1983 Hepatitis C screening for age 18-79 10/12/1983 Tetanus booster 1985 Colonoscopy through age 75 2010 Lipids for age 45-75 2010 Mammogram for age 45-75 2010 Pneumococcal series for age 50+ (1 of 1 - PCV) 10/12/2015 Zoster (shingles) series for age 50+ (1 of 2) 10/12/2015 COVID-19 vaccine series (2023- season) 2023 02/28/2021, 07/02/2020, 06/11/2020 Influenza for age 50-64 11/17/2023 Pap test for age 21-65 03/31/2024 03/31/2021, 2021 Procedures Procedure Name Priority Date/Time Associated Diagnosis Comments HPV HIGH RISK Routine 03/31/2021 12:00 PM STUDENT ADVISOR from Last 3 Months or Most Recently Relevant to Health Maintenance Results * HPV HIGH RISK (03/31/2021 12:00 PM STUDENT ADVISOR) TYPE 16 Negative Negative 04/04/2021 2:16 PM STUDENT ADVISOR [facility] TYPE 18 Negative Negative 04/04/2021 2:16 PM STUDENT ADVISOR [facility] OTHER HIGH RISK TYPES Negative Negative 04/04/2021 2:16 PM STUDENT ADVISOR [facility] Other (Other) 03/31/2021 12: 00 PM STUDENT ADVISOR 04/03/2021 7:39 AM STUDENT ADVISOR N[facility]ative [facility] - 04/04/2021 2:16 PM STUDENT ADVISOR HPV types 16, 18, 31, 33, 35, 39, 45, 51, 52, 56, 58, 59, 66 and 68 DNA were undetectable or below the pre-set threshold. Methodology: Kendall Yasmine 4800 HPV Test Margaret Bolden MD MICROBIOLOGY Final Re sult [facility] [address] [place] [address], from Last 3 Months or Most Recently Relevant to Health Maintenance Insurance [employer] JENNIFER MARIN [id number] Care Teams Business Banking Sales Assistant Relationship Specialty Start Date End Date Margaret Bolden MD [address] [place] [address] PCP - General Family Practice 08/23/21
--- OUTSIDE RECORDS SUMMARY | 2024-04-05 14:44 | XMS_ITS | Encounter Summary ---
Author Organization [facility] Address [address] [place] [address] Care Team Providers Care Theater Projectionist Name Role Phone Unavailable Primary Care Provider Unavailabl e Reason for Referral * Outpatient (Routine) - Authorized Specialty Diagnoses / Procedures Referred By Contac t Referred To Contact Obstetrics and Gynecology Diagnoses Malignant Neoplasm Of Colon (HCC) Hysterectomy Cervical Stump Persistent Status Post Marbella Garcia M.D. [address] [place] [address] Phone: tel: fax: [facility] Referral ID Status Reason Start Date Expiration Date V isits Requested Visits Authorized [id number] Authorized 03/27/2024 09/26/2025 1 1 Scheduling Instructions Wagner please ask the gyne schedulers for DR JOHNS to ask his nurse Noemí what time for virtual visit with Dr Johns before surgery ITAL INSURANCE CLERK Encounter Details Date Type Department Care Team (Late st Contact Info) Description 03/27/2024 Orders Only Division of Colon and Rectal Surgery in [place], [place] [address] [place] [address] Marbella Garcia M.D. [address] [place] [phone] Malignant Neoplasm Of Colon (HCC) (Primary Dx); Hysterectomy Cervical Stump Persistent Status Post Social History Tobacco Use Types Packs/Day Years Used Date Smoking Tobacco: Never Passive Smoke Exposure: Never Smokeless Tobacco: Never [facility] Utilities Answer Date Recorded In the [...] your living situation today? I have a [facility] place to live 11/27/2023 Comments Unknown Sex and Gender Information Value Date Recorded Sex Assigned at Female 11/27/2023 7:44 PM CDT Legal Sex Female 4:15 PM CDT Gender Identity Female 11/27/2023 7:44 PM CDT Sexual Orientation Straight 11/27/2023 7: 44 PM CDT documented as of this encounter Plan of Treatment Upcoming Encounters Date Type Department Care Team (Latest Contact Info) Description 04/09/2024 9:15 AM HOSPITAL INSURANCE CLERK Telemedicine Department of Obstetrics and Gynecology, Division of Gynecologic Oncology in [place], [place] [address] [place] [address] Luis Johns M.D. [address] [place] [address] 04/10/2024 7:25 AM HOSPITAL INSURANCE CLERK Hospital Encounter [facility] 01 4 AM ADMIT [address] [place] [address] Marbella Garcia M.D. [address] [place] [phone] 04/10/2024 7:25 AM HOSPITAL INSURANCE CLERK - 04/10/2024 1:16 PM HOSPITAL INSURANCE CLERK Surgery [facility] MAIN OR [address] [place] [address] Marbella Garcia M.D. [address] [place] [phone] LAPAROSCOPIC COLECTOMY extended RIGHT WITH ANASTOMOSIS 05/01/2024 10:30 AM HOSPITAL INSURANCE CLERK Office Visit Department of Medical Genetics in [place], [place] [address] [place] [phone] Ary Robbins M.D. [address] [place] [phone] Rasheeda Reynolds M.S., [facility] [address] [place] [phone] Scheduled Procedures Name Priority Associated Diagnoses Date/Ti me LAPAROSCOPIC COLECTOMY RIGHT WITH ANASTOMOSIS Malignant Neoplasm Of Colon (HCC) 04/10/2024 7:25 AM HOSPITAL INSURANCE CLERK LAPAROSCOPIC SALPINGO-OOPHORECTOMY Malignant Neoplasm Of Colon (HCC) 04/10/2024 7:25 AM HOSPITAL INSURANCE CLERK TRACHELECTOMY VAGINA Malignant Neoplasm Of Colon (HCC) 04/10/2024 7:25 AM HOSPITAL INSURANCE CLERK Scheduled Referrals Name Type Priority Associated Diagnoses Order Schedule Obstetrics and Gynecology - Gynecologic oncology surgery consult (clinic) Outpatient Referral Routine Malignant Neoplasm Of Colon (HCC) Hysterectomy Cervical Stump Persistent Status Post Expected: 03/27/2024, Expires: 06/25/2025 documented as of this encounter Goals Goal Patient Goal Type Associated Problems Recent Progress Patient-Stated? Author [facility] Care Plan for Nicotine Dependency Perioperative Care Plan [facility] Care Plan for Nicotine Dependency Perioperative No Lupe Joshi RRandeeN. Surgical Readiness and Recovery Care Plan Care Plan Surgical Readiness and Recovery Care Plan No Lupe Joshi R.N. documented as of this encounter Visit Diagnoses Diagnosis Malignant Neoplasm Of Colon (HCC)- Primary Malignant Neoplasm Of Colon (HCC)- Primary Hysterectomy Cervical Stump Persistent Status Post Malignant Neoplasm Of Colon (HCC) documented in this encounter Additional Health Concerns Active Problems Noted Date Diagnosed Date [facility] Care Plan for Nicotine Dependency Pe rioperative 03/26/2024 Surgical Readiness and Recovery Care Plan 2024 documented as of this encounter
--- OUTSIDE RECORDS SUMMARY | 2024-04-05 14:44 | XMS_ITS | Referral Summary ---
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 For routine questions regarding patient records, call [phone] during business hours, M-F 8:00 AM - 5:00 PM Central Time. Record requests for emergency care only can be directed to [phone] at any time.[facility] Encounters Date Type Department Care Team Description 03/30/2024 Orders Only Division of Colon and Rectal Surgery in [place], [place] [address] [place] [phone] Marbella Garcia M.D. Malignant Neoplasm Of Colon (HCC) (Primary Dx) 03/27/2024 Orders Only Division of Colon and Rectal Surgery in [place], [place] [address] [place] [phone] Marbella Garcia M.D. Malignant Neoplasm Of Colon (HCC) (Primary Dx); Hysterectomy Cervical Stump Persistent Status Post 03/26/2024 3:22 PM BELT BACK OPERATOR - 03/26/2024 11:59 PM BELT BACK OPERATOR Hospital Encounter Department of Laboratory Medicine and Pathology, [place], [place] [address] [place] [phone] Marbella Garcia M.D. Malignant Neoplasm Of Colon (HCC) Discharge Disposition: Home or Self Care 03/26/2024 12:30 PM BELT BACK OPERATOR - 03/26/2024 3:21 PM BELT BACK OPERATOR Hospital Encounter Department of Laboratory Medicine and Pathology, [facility] in [place], [place] [address] [place] [phone] Estuardo Amin P.A.-C. Malignant Neoplasm Of Colon (HCC) Discharge Disposition: Home or Self Care 03/26/2024 2:00 PM BELT BACK OPERATOR Comprehensive Visit Division of Colon and Rectal Surgery in [place], [place] [address] [place] [phone] Marbella Garcia M.D. Anemia Iron Deficiency Blood Loss Chronic (Primary Dx); Malignant Neoplasm Of Colon (HCC) 03/24/2024 Orders Only Division of Colon and Rectal Surgery in [place], [place] [address] [place] [phone] Estuardo Amin P.A.-C. 03/19/2024 Orders Only Division of Colon and Rectal Surgery in [address] [phone] Estuardo Amin P.A.-C. 03/19/2024 3:45 PM BELT BACK OPERATOR Lab RST RO LMP [address] [place] [phone] Marbella Garcia M.D. Polyp Colon 03/19/2024 Orders Only Division of Colon and Rectal Surgery in [address] [phone] Estuardo Amin P.A.-C. Malignant Neoplasm Of Colon (HCC) (Primary Dx) 03/19/2024 Clinical Communication Division of Colon and Rectal Surgery in [address] [phone] Marbella Garcia M.D. Outside pathology orders 03/19/2024 7:16 AM BELT BACK OPERATOR - 03/19/2024 11:59 PM BELT BACK OPERATOR Hospital Encounter Department of Laboratory Medicine and Pathology, [facility], in [address] [phone] Estuardo Amin P.A.-C. Malignant Neoplasm Of Colon (HCC) Discharge Disposition: Home or Self Care 03/19/2024 8:00 AM BELT BACK OPERATOR Comprehensive Visit Division of Colon and Rectal Surgery in [address] [phone] Estuardo Amin P.A.-C. Malignant Neoplasm Of Colon (HCC) (Primary Dx) 03/17/2024 Orders Only Division of Colon and Rectal Surgery in [address] [phone] Marbella Garcia M.D. Polyp Colon (Primary Dx) 03/17/2024 11:55 AM BELT BACK OPERATOR Ancillary Procedure Department of Radiology in [place], [place] [address] [place] [phone] Estuardo Amin P.A.-C. Malignant Neoplasm Of Colon (HCC) 03/17/2024 11:50 AM BELT BACK OPERATOR Ancillary Procedure Department of Radiology in [address] [phone] Estuardo Amin P.A.-C. Malignant Neoplasm Of Colon (HCC) 03/16/2024 1:40 PM BELT BACK OPERATOR Ancillary Procedure Department of Radiology in [address] [phone] Estuardo Amin P.A.-C. Malignant Neoplasm Of Colon (HCC) 03/16/2024 Orders Only Division of Colon and Rectal Surgery in [address] [phone] Estuardo Amin P.A.-C. Malignant Neoplasm Of Colon (HCC) (Primary Dx) 03/16/2024 Orders Only Division of Colon and Rectal Surgery in [address] [phone] Galen Verma P.A.-C., M.S. 03/13/2024 Clinical Communication Division of Colon and Rectal Surgery in [address] [phone] Prescheduling, Provider 02/14/2024 9:55 AM BELT BACK OPERATOR Ancillary Procedure Department of Gastroenterology 02/14/2024 [facility] [address] [place] [address] Ary Robbins M.D. Genetic Susceptibility To Other Malignant Neoplasm (Primary Dx) from Last 3 Months Allergies Active Allergy [...] as needed for nausea or vomiting. Active nystatin-triamcino lone (Mycolog II) 100,000 Unit/g-0.1 % cream APPLY TO THE CORNERS OF MOUTH NIGHTLY NEEDED. 4 Active GaviLyte-C 240-22.72-6.72 -5.84 gram solution 4 Active potassium chloride (K-Tab) 20 mEq ER tablet Take 2 tablets by mouth daily. 4 Active polyethylene glycol (Miralax) 17 gram/dose oral powder Take 238 g by mouth as directed. Mix bottle in 64 oz clear liquid until dissolved; starting at 5pm drink 8 oz every 15 min until gone 238 g 5 Active bisacodyL (Dulcolax) 5 mg EC tablet Take 2 tabs (10 mg total) by mouth at 4pm and 9pm w/8 oz glass of any clear liquid. 4 tablet 5 Active neomycin (Mycifradin) 500 mg tabletIndications: Malignant Neoplasm Of Colon (HCC) Take 2 tabs by mouth at 4pm and 9pm with 8 oz glass of any clear liquid. Take 2 tabs at 5am the day of surgery with a sip of clear liquid 6 tablet 5 Active metroNIDAZOLE (FlagyL) 500 mg tabletIndications: Malignant Neoplasm Of Colon (HCC) Take 1 tab by mouth at 4pm and 9pm with an 8 oz glass of any clear liquid. Take 1 tab at 5am the day of surgery with a sip of clear liquid 3 tablet 5 Active ondansetron (Zofran) 4 mg tablet Take 1 tab by mouth at 4pm and 9pm with an 8 oz glass of any clear liquid. Take 1 tab at 5am the day of surgery with a sip of clear liquid 3 tablet 5 Active Active Problems Problem Noted Date Diagnosed Date Malignant Neoplasm Of Colon 03/26/2024 Cervical Stump Prolapse 11/29/2023 Hyperlipidemia 11/29/2023 Hypertension [...] Passive Smoke Exposure: Never Smokeless Tobacco: Never [facility] Utilities Answer Date Recorded In the past 12 months has [employer], oil, or water [employer] threatened to shut off services in your [...] your living situation today? I have a [facility] place to live 11/27/2023 Comments Unknown Sex and Gender Information Value Date Recorded Sex Assigned at Female 11/27/2023 7:44 PM CDT Legal Sex Female 4:15 PM CDT Gender Identity Female 11/27/2023 7:44 PM CDT Sexual Orientation Straight 11/27/2023 7: 44 PM CDT Last Filed Vital Signs Vital Sign Reading Time Taken Comments Blood Pressure 139/81 03/19/2024 7:52 AM BELT BACK OPERATOR Pulse 87 03/19/2024 7:52 AM BELT BACK OPERATOR Temperature - - Respiratory Rate - - Oxygen Saturation - - Inhaled Oxygen Concentration - - Weight 106 kg (234 lb 5.6 oz) 03/19/2024 7:52 AM BELT BACK OPERATOR Height 167.5 cm (5' 5.95) 03/19/2024 7:52 AM CS T Body Mass Index 37.89 03/19/2024 7:52 AM BELT BACK OPERATOR Plan of Treatment Upcoming Encounters Date Type Department Care Team (Latest Contact Info) Description 04/09/2024 9:15 AM BELT BACK OPERATOR Telemedicine Department of Obstetrics and Gynecology, Division of Gynecologic Oncology in [place], [place] 200 [place] [address] Luis Johns M.D. 200 [place] [address] 04/10/2024 7:25 AM BELT BACK OPERATOR Hospital Encounter [facility]ST [facility] 01 4 AM ADMIT [address] [place] [address] Marbella Garcia M.D. [address] [place] [phone] 04/10/2024 7:25 AM BELT BACK OPERATOR - 04/10/2024 1:16 PM BELT BACK OPERATOR Surgery [facility] [address] [place] [address] Marbella Garcia M.D. [address] [place] [phone] LAPAROSCOPIC COLECTOMY extended RIGHT WITH ANASTOMOSIS 05/01/2024 10:30 AM BELT BACK OPERATOR Office Visit Department of Medical Genetics in [place], [place] [address] [place] [phone] Ary Robbins M.D. [address] [place] [phone] Rasheeda Reynolds M.S., [facility] [address] [place] [phone] Scheduled Procedures Name Priority Associated Diagnoses Date/Ti me LAPAROSCOPIC COLECTOMY RIGHT WITH ANASTOMOSIS Malignant Neoplasm Of Colon (HCC) 04/10/2024 7:25 AM BELT BACK OPERATOR LAPAROSCOPIC SALPINGO-OOPHORECTOMY Malignant Neoplasm Of Colon (HCC) 04/10/2024 7:25 AM BELT BACK OPERATOR TRACHELECTOMY VAGINA Malignant Neoplasm Of Colon (HCC) 04/10/2024 7:25 AM BELT BACK OPERATOR Goals Goal Patient Goal Type Associated Problems Recent Progress Patient-Stated? Author [facility] Care Plan for Nicotine Dependency Perioperative Care Plan [facility] Care Plan for Nicotine Dependency Perioperative No Lupe Joshi R.N. Surgical Readiness and Recovery Care Plan Care Plan Surgical Readiness and Recovery Care Plan No Lupe Joshi R.N. Procedures Procedure Name Priority Date/Time Associated Diagnosis Comments TYPE AND SCREEN Routine 03/26/2024 3:36 PM BELT BACK OPERATOR Malignant Neoplasm Of Colon (HCC) CBC WITHOUT DIFFERENTIAL, B Routine 03/26/2024 1:00 PM BELT BACK OPERATOR Malignant Neoplasm Of Colon (HCC) ECG Routine 03/19/2024 9:05 AM BELT BACK OPERATOR Malignant Neoplasm Of Colon (HCC) COMPREHENSIVE METABOLIC PANEL, S/P Routine 03/19/2024 7:43 AM BELT BACK OPERATOR Malignant Neoplasm Of Colon (HCC) CBC WITHOUT DIFFERENTIAL, B Routine 03/19/2024 7:43 AM BELT BACK OPERATOR Malignant Neoplasm Of Colon (HCC) CARCINOEMBRYONIC AG (CEA), S Routine 03/19/2024 7:43 AM BELT BACK OPERATOR Malignant Neoplasm Of Colon (HCC) INTERPRETATION OF OUTSIDE CT ABDOMEN AND OR PELVIS RAD - Routine (most inpatients and all outpatients) 03/17/2024 11:51 AM BELT BACK OPERATOR Malignant Neoplasm Of Colon (HCC) INTERPRETATION OF OUTSIDE CT CHEST RAD - Routine (most inpatients and all outpatients) 03/17/2024 11:51 AM BELT BACK OPERATOR Malignant Neoplasm Of Colon (HCC) INTERPRETATION OF OUTSIDE NM PET SCAN RAD - Routine (most inpatients and all outpatients) 03/16/2024 1:46 PM BELT BACK OPERATOR Malignant Neoplasm Of Colon (HCC) OUTSIDE NM PET Routine 02/20/2024 3:45 PM BELT BACK OPERATOR GASTROENTEROLOGY IMAGE EXAM Routine 02/14/2024 9:55 AM BELT BACK OPERATOR OUTSIDE CT BODY Routine 02/05/2024 3:15 PM BELT BACK OPERATOR PATHOLOGY REVIEW OF OUTSIDE MATERIAL Routine 01/27/2024 11:08 AM BELT BACK OPERATOR Polyp Colon from Last 3 Months Results * Type and Screen (with Reflex Antibody ID) (03/26/2024 3:36 PM BELT BACK OPERATOR) ABORh A Neg Not applicable 03/26/2024 4:34 PM BELT BACK OPERATOR ETRM Antibody Screen Negative Negative 03/26/2024 4:47 PM BELT BACK OPERATOR ETRM Type & Screen Expiration 05/24/2024 23:59 03/26/2024 4:34 PM BELT BACK OPERATOR ETRM Testing Location [place] DEFAULT 03/26/2024 4:01 PM BELT BACK OPERATOR ETRM Blood (Blood, Venous) 03/26/2024 3:36 PM BELT BACK OPERATOR 03/26/2024 4:01 PM BELT BACK OPERATOR Marbella Garcia M.D. LAB BLOOD BANK TEST ORDERAB LES Final Result [facility] [address] [place] [address], [facility] ETRM [facility] [address] [place] [address] * (ABNORMAL) CBC without Differential (03/26/2024 1:00 PM BELT BACK OPERATOR) Only the most recent of2 resultswithin the time period is included. [facility] Hemoglobin 8.7(L) 11.6 - 15.0 g/dL 03/26/2024 1:36 PM BELT BACK OPERATOR DTL Hematocrit 30.1(L) 35.5 - 44.9 % 03/26/2024 1:36 PM BELT BACK OPERATOR DTL Erythrocytes 3.83(L) 3.92 - 5.13 x10(12)/L 03/26/2024 1:36 PM BELT BACK OPERATOR DTL MCV 78.6 78.2 - 97.9 fL 03/26/2024 1:36 PM BELT BACK OPERATOR DTL RBC Distrib Width 23.1(H) 12.2 - 16.1 % 03/26/2024 1:36 PM BELT BACK OPERATOR DTL Platelet Count 442(H) 157 - 371 x10(9)/L 03/26/2024 1:36 PM BELT BACK OPERATOR DTL Leukocytes 10.1(H) 3.4 - 9.6 x10(9)/L 03/26/2024 1:36 PM BELT BACK OPERATOR DTL Blood (Blood, Venous) 03/26/2024 1:00 PM BELT BACK OPERATOR 03/26/2024 1:22 PM BELT BACK OPERATOR Estuardo Amin P.A.-C. LAB BLOOD ADD-ON Final Re sult Performing Organization Address [facility] Co de Phone Number [facility] [address] [place] [address], [place] DTL [facility] [address] [place] [address] * ECG 12 Lead (03/19/2024 9:05 AM BELT BACK OPERATOR) Ventricular Rate ECG/Min 76 BPM MUSE KS Interval 182 ms MUSE QRSD Interval 94 ms MUSE QT Interval 402 ms MUSE QTC Interval 452 ms MUSE P [place] 8 degrees MUSE R [place] -1 degrees MUSE T Wave [place] 24 degrees MUSE 03/19/2024 9:05 AM BELT BACK OPERATOR 03/19/2024 9:23 AM BELT BACK OPERATOR Impressions MUSE - 03/19/2024 9:23 AM BELT BACK OPERATOR Normal sinus rhythm Minimal voltage criteria for LVH, may be normal variant Nonspecific ST abnormality No previous ECGs available Reviewed by CRISTIAN Mei Narrative Procedure Note oRgelio Kurtz M.D., Ph.D. - 03/19/2024 IMPRESSION: Normal sinus rhythm Minimal voltage criteria for LVH, may be normal variant Nonspecific ST abnormality No previous ECGs available Reviewed by CRISTIAN Mei Estuardo Amin P.A.-C. ECG ORDERABLES Final Res ult Performing Organization Address [facility] Co de Phone Number MUSE NA * (ABNORMAL) CEA (Carcinoembryonic Antigen) (03/19/2024 7:43 AM BELT BACK OPERATOR) Carcinoembryonic Ag (CEA), S 3.3(H) ng/mL 03/19/2024 3:44 PM BELT BACK OPERATOR [facility] Comment: ----REFERENCE VALUE---- <=3.0 (Non-smokers) Some smokers may have elevated CEA, usually <5.0. ----ADDITIONAL INFORMATION---- The testing method is an immunoenzymatic assay manufactured by [employer] and performed on the [employer] DxI 800. Values obtained with different assay methods or kits may be different and cannot be used interchangeably. Test results cannot be interpreted as absolute evidence for the presence or absence of malignant disease. Blood (Blood, Venous) 03/19/2024 7:43 AM BELT BACK OPERATOR 03/19/2024 2:42 PM BELT BACK OPERATOR us Estuardo Amin P.A.-C. LAB BLOOD ADD-ON Final Re sult [facility] [address] [place] [address] [facility] [address] [place] [address] * (ABNORMAL) Comprehensive Metabolic Panel (03/19/2024 7:43 AM BELT BACK OPERATOR) Potassium, S 3.5(L) 3.6 - 5.2 mmol/L 03/19/2024 8:52 AM BELT BACK OPERATOR DTL Sodium, S 140 135 - 145 mmol/L 03/19/2024 8:52 AM BELT BACK OPERATOR DTL Chloride, S 95(L) 98 - 107 mmol/L 03/19/2024 8:52 AM BELT BACK OPERATOR DTL Bicarbonate, S 30(H) 22 - 29 mmol/L 03/19/2024 8:52 AM BELT BACK OPERATOR DTL Anion Gap 15 7 - 15 03/19/2024 8:52 AM BELT BACK OPERATOR DTL BUN (Blood Urea Nitrogen), S 13 6 - 21 mg/dL 03/19/2024 8:52 AM BELT BACK OPERATOR DTL Creatinine 0.55(L) 0.59 - 1.04 mg/dL 03/19/2024 8:52 AM BELT BACK OPERATOR DTL Estimated GFR (eGFR) >90 >=60 mL/min/BS A 03/19/2024 8:52 AM BELT BACK OPERATOR DTL Comment: Estimated GFR calculated using the 2020 CKD_EPI creatinine equation. Calcium, Total, S 9.8 8.6 - 10.0 mg/dL 03/19/2024 8:52 AM BELT BACK OPERATOR DTL Glucose, S 129 70 - 140 mg/dL 03/19/2024 8:52 AM BELT BACK OPERATOR DTL Protein, Total, S 7.4 6.3 - 7.9 g/dL 03/19/2024 8:52 AM BELT BACK OPERATOR DTL Albumin, S 4.1 3.5 - 5.0 g/dL 03/19/2024 8:52 AM BELT BACK OPERATOR DTL Aspartate Aminotransferase (AST), S 15 8 - 43 U/L 03/19/2024 8:52 AM BELT BACK OPERATOR DTL Alkaline Phosphatase, S 78 35 - 104 U/L 03/19/2024 8:52 AM BELT BACK OPERATOR DTL Alanine Aminotransferase (ALT), S <7(L) 7 - 45 U/L 03/19/2024 9:07 AM BELT BACK OPERATOR DTL Bilirubin, Total, S 0.3 0.0 - 1.2 mg/dL 03/19/2024 8:52 AM BELT BACK OPERATOR DTL Blood (Blood, Venous) 03/19/2024 7:43 AM BELT BACK OPERATOR 03/19/2024 8:24 AM BELT BACK OPERATOR us Estuardo Amin P.A.-C. LAB BLOOD ADD-ON Final Re sult [facility] [address] [place] [address], [facility] [address] [place] [address] * Interpretation of Outside CT Abdomen and or Pelvis (03/17/2024 11:51 AM BELT BACK OPERATOR) Anatomical Region Laterality Modality Abdomen, Pelvis, Abdominal R ST LOS, Abdominal ARZ LOS, Abdominal FLA LOS, Other N/A Computed Tomography Impressions 03/19/2024 7:30 AM BELT BACK OPERATOR Primary colonic neoplasm and transverse colon with small adjacent lymph nodes which may represent local regional metastases. No findings for distant metastatic disease in the abdomen or pelvis. Narrative 03/19/2024 7:30 AM BELT BACK OPERATOR EXAM: INTERPRETATION OF OUTSIDE CT ABDOMEN AND OR PELVIS Outside CT of the abdomen pelvis with intravenous contrast dated 02/05/2024. COMPARISON: Subsequent FDG PET CT from 02/20/2024 FINDINGS: Mild thickening and hyperenhancement of the anterior wall of the transverse colon (series 2 image [id number]), likely representing the known primary adenocarcinoma as seen on the PET/CT from 02/20/2024. Low-attenuation density along the medial wall of the cecum favored to represent stool given lack of uptake in this region on the PET/CT. Multiple nonenlarged but somewhat rounded nodes adjacent to the transverse colon (series 2 image 159, 166) may represent local regional metastases. No distant lymphadenopathy. Tiny 1.2 cm right adrenal nodule favored to be benign. No solid organ metastasis or suspicious osseous lesions. Normal liver, spleen, pancreas, kidneys and left adrenal gland. This examination was performed in conjunction with a CT of the chest, which will be reported separately. Procedure Note True Muñoz M.D. - 03/19/2024 EXAM: INTERPRETATION OF OUTSIDE CT ABDOMEN AND OR PELVIS Outside CT of the abdomen pelvis with intravenous contrast dated104/06/2023. COMPARISON: Subsequent FDG PET CT from 02/20/2024 FINDINGS: Mild thickening and hyperenhancement of the anterior wall ofthe transverse colon (series 2 image [id number]), likely representing theknown primary adenocarcinoma as seen on the PET/CT from 02/20/2024.Low-attenuation density along the medial wall of the cecum favored to represent stool given lack of uptake in thisregion on the PET/CT. Multiple nonenlarged but somewhat rounded nodesadjacent to the transverse colon (series 2 image 159, 166) may representlocal regional metastases. No distant lymphadenopathy. Tiny 1.2 cm right adrenal nodule favored to be benign.No solid organ metastasis or suspicious osseous lesions. Normal liver, spleen, pancreas, kidneys and left adrenal gland. Thisexamination was performed in conjunction with a CT of the chest, whichwill be reported separately. IMPRESSION: Primary colonic neoplasm and transverse colon with small adjacent lymphnodes which may represent local regional metastases. No findings fordistant metastatic disease in the abdomen or pelvis. Estuardo Amin P.A.-C. IMMendoza CT PROCEDURES Final R esult * Interpretation of Outside CT Chest (03/17/2024 11:51 AM BELT BACK OPERATOR) Anatomical Region Laterality Modality Chest, Thoracic RST LOS, Tho racic ARZ LOS, Thoracic FLA LOS, Other, Body N/A Computed Tomography Impressions 03/17/2024 12:34 PM BELT BACK OPERATOR Tiny indeterminate pulmonary nodules measure up to 3 mm. Narrative 03/17/2024 12:34 PM BELT BACK OPERATOR EXAM: INTERPRETATION OF OUTSIDE CT CHEST with IV contrast dated 02/05/2024. COMPARISON: PET/CT 02/20/2024. FINDINGS: Tiny 3 mm nodule in the anterior right upper lobe (3/20) and 3 mm nodule in the right lower lobe (3/51). Small amount of opacity in the inferior lingula (3/63) is favored to be due to volume loss. No pleural effusion. No thoracic lymphadenopathy by size criteria. Mild hypertrophic changes in the spine. This examination was performed in conjunction with a CT of the abdomen, which will be interpreted separately. Procedure Note Dhiraj Wetzel M.D. - 03/17/2024 EXAM: INTERPRETATION OF OUTSIDE CT CHEST with IV contrast dated104/06/2023. COMPARISON: PET/CT 02/20/2024. FINDINGS: Tiny 3 mm nodule in the anterior right upper lobe (3/20) and 3 mm nodulein the right lower lobe (3/51). Small amount of opacity in the inferiorlingula (3/63) is favored to be due to volume loss. No pleural effusion. No thoracic lymphadenopathy by size criteria. Mild hypertrophic changes in the spine. This examination was performed in conjunction with a CT of the abdomen,which will be interpreted separately. IMPRESSION: Tiny indeterminate pulmonary nodules measure up to 3 mm. Estuardo Amin P.A.-C. IMG CT PROCEDURES Final R esult * Interpretation of Outside NM PET Scan (03/16/2024 1:46 PM BELT BACK OPERATOR) Anatomical Region Laterality Modality Nuclear Medicine PET RST LOS , Nuclear Medicine ARZ LOS, Nuclear Medicine FLA LOS, Nuclear Medicine, Other, Neuroradiology ARZ LOS, Neuroradiology FLA LOS, Neuroradiology RST LOS, Body N/A Nuclear Medicine Impressions 03/17/2024 9:32 AM BELT BACK OPERATOR 1. Intense FDG activity at the left transverse lesion consistent with biopsy-proven malignancy. 2. No evidence of FDG avid lymphadenopathy in the chest, abdomen and pelvis. 3. Indeterminate hypodense right adrenal nodule without significant FDG activity. 4. Increased FDG activity with opacification of the right ethmoidal and sphenoid sinuses as well as prominent tonsils most likely infectious/inflammatory in nature. Narrative 03/17/2024 9:32 AM BELT BACK OPERATOR EXAM: INTERPRETATION OF OUTSIDE NM PET SCAN dated 02/20/2024. TECHNIQUE: F-18 Fluorodeoxyglucose (FDG) PET/CT scan was performed from the orbits through the thighs with CT fusion imaging for attenuation correction and anatomic coregistration only. COMPARISON: Outside CT chest chest, abdomen and pelvis 02/05/2024. INDICATION: New diagnosis of colon cancer. Adenocarcinoma of the transverse colon. Initial treatment strategy. FINDINGS: Hypermetabolic concentric wall thickening/mass in the transverse colon with SUV max of 22.1 (axial fused image 186). No evidence of FDG avid lymphadenopathy in the chest, abdomen or pelvis. A 13 mm right adrenal nodule with low density and without significant FDG activity (image 153). No evidence of FDG avid hepatic lesion. Moderate focal uptake in the left 6th rib with nondisplaced healing fracture with SUV max of 5.1 (images 130). Additional patchy uptake throughout the bone marrow could obscure tiny lesions. Increased FDG activity at the opacified right ethmoidal air cells and sphenoid sinus with SUV max of 12.8 (images 16) suggestive of infectious/inflammatory process. Increased bilateral uptake in the prominent tonsils could be inflammatory/reactive. Mild to moderate uptake in the 7 mm short axis right cervical lymph node with SUV max of 4.8 (image 43), most likely reactive to the adjacent ongoing infectious/inflammatory process. Incidental findings on CT fused images: Bibasilar atelectasis. Scattered degenerative change of the spine with mild anterior wedging of L1 vertebral body. Procedure Note Alexa Hernández M.D. - 03/17/2024 EXAM: INTERPRETATION OF OUTSIDE NM PET SCAN dated 02/20/2024. TECHNIQUE: F-18 Fluorodeoxyglucose (FDG) PET/CT scan was performed fromthe orbits through the thighs with CT fusion imaging for attenuationcorrection and anatomic coregistration only. COMPARISON: Outside CT chest chest, abdomen and pelvis 02/05/2024. INDICATION: New diagnosis of colon cancer. Adenocarcinoma of thetransverse colon. Initial treatment strategy. FINDINGS: Hypermetabolic concentric wall thickening/mass in the transverse colonwith SUV max of 22.1 (axial fused image 186). No evidence of FDG avid lymphadenopathy in the chest, abdomen or pelvis. A 13 mm right adrenal nodule with low density and without significant FDGactivity (image 153). No evidence of FDG avid hepatic lesion. Moderate focal uptake in the left 6th rib with nondisplaced healingfracture with SUV max of 5.1 (images 130). Additional patchy uptakethroughout the bone marrow could obscure tiny lesions. Increased FDG activity at the opacified right ethmoidal air cells andsphenoid sinus with SUV max of 12.8 (images 16) suggestive ofinfectious/inflammatory process. Increased bilateral uptake in theprominent tonsils could be inflammatory/reactive. Mild to moderate uptake in the 7 mm short axis right cervical lymph node withSUV max of 4.8 (image 43), most likely reactive to the adjacent ongoinginfectious/inflammatory process. Incidental findings on CT fused images: Bibasilar atelectasis. Scattereddegenerative change of the spine with mild anterior wedging of [id number] body. IMPRESSION: 1. Intense FDG activity at the left transverse lesion consistent withbiopsy- proven malignancy. 2. No evidence of FDG avid lymphadenopathy in the chest, abdomen andpelvis. 3. Indeterminate hypodense right adrenal nodule without significant FDGactivity. 4. Increased FDG activity with opacification of the right ethmoidal andsphenoid sinuses as well as prominent tonsils most likelyinfectious/inflammatory in nature. Estuardo Amin P.A.-C. [facility] PROCEDURES Final R esult * PET skull to mid thigh-Outside [place] Pet (02/20/2024 3:45 PM BELT BACK OPERATOR) Narrative [facility] - 02/20/2024 8:38 PM BELT BACK OPERATOR This order has been created and auto-finalized to support the import of outside images. If available, original interpretation can be found on the Media Tab in Chart Review, in Document Viewer, as an image in QREADS or as an Addendum. If a re-interpretation or overread is required please follow defined workflow. Provider Not In System [facility] [place]ED[place] Final R esult [facility] NA * Unspecified-Gastroenterology Image Exam (02/14/2024 9:55 AM BELT BACK OPERATOR) 02/14/2024 9:52 AM BELT BACK OPERATOR Narrative [facility] - 02/14/2024 9:56 AM BELT BACK OPERATOR This order has been created and auto-finalized to support the import of images acquired without order. The clinical documentation to support these images can be found on the encounter that produced images. us Provider Not In System IMG NON RAD IMAGING PROCE DURES Final Result Performing Organization Address [facility] de Phone Number [facility] NA * CT chest abdomen pelv w con-Outside CT Body (02/05/2024 3:15 PM BELT BACK OPERATOR) Narrative [facility] - 03/16/2024 2:59 PM BELT BACK OPERATOR This order has been created and auto-finalized to support the import of outside images. If available, original interpretation can be found on the Media Tab in Chart Review, in Document Viewer, as an image in QREADS or as an Addendum. If a re-interpretation or overread is required please follow defined workflow. us Provider Not In System IM CT PROCEDURES Final R esult Performing Organization Address [facility] de Phone Number [facility] NA * Pathology Review of Outside Material (01/27/2024 11:08 AM BELT BACK OPERATOR) 03/20/2024 3:15 PM BELT BACK OPERATOR DTL Report electronically signed by Terrell Warner M.D., Ph.D. I verify that I have examined all relevant slides/materials for the specimen(s) and rendered or confirmed the diagnosis. 03/20/2024 3:15 PM BELT BACK OPERATOR DTL Material Received A. 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 Digital imaging was used in the diagnostic assessment of this case. 03/20/2024 3:15 PM BELT BACK OPERATOR DTL Varies 01/27/2024 11:0 8 AM BELT BACK OPERATOR 03/19/2024 1:45 PM BELT BACK OPERATOR us Marbella Garcia M.D. LAB SURG PATH ORDERABLES Fi nal Result [facility] [address] [place] [address], [facility] DTL [address] [place] [address] from Last 3 Months Additional Health Concerns Active Problems Noted Date Diagnosed Date [facility] Care Plan for Nicotine Dependency Pe rioperative 03/26/2024 Surgical Readiness and Recovery Care Plan 2024 Insurance [facility]
--- OUTSIDE RECORDS SUMMARY | 2024-04-05 14:44 | XMS_ITS | Clinical Summary ---
Author Organization [facility] Address [address] [place] [id number] Care Team Providers Care Shipping Hand Name Role Phone Unavailable Primary Care Provider Unavailabl e Source Comments Patient records contain information from all sites at [facility]. For routine questions regarding patient records, call [phone] during business hours, M-F 8:00 AM - 5:00 PM Central Time. Record requests for emergency care only can be directed to [phone] at any time.[facility] Allergies Active Allergy Reactions Criticality Noted Date [...] Division of Colon and Rectal Surgery in [place], [place] [address] [place] [address] Marbella Garcia M.D. Malignant Neoplasm Of Colon (HCC) (Primary Dx) 03/27/2024 Orders Only Division of Colon and Rectal Surgery in [place], [place] [address] [place] [phone] Marbella Garcia M.D. Malignant Neoplasm Of Colon (HCC) (Primary Dx); Hysterectomy Cervical Stump Persistent Status Post 03/26/2024 3:[address] SHAFT AND STEERING POST REPAIRER - 03/26/2024 11:[address] SHAFT AND STEERING POST REPAIRER Hospital Encounter Department of Laboratory Medicine and Pathology, [place], [place] [address] [place] [address] Marbella Garcia M.D. Malignant Neoplasm Of Colon (HCC) Discharge Disposition: Home or Self Care 03/26/2024 2:[address] SHAFT AND STEERING POST REPAIRER Comprehensive Visit Division of Colon and Rectal Surgery in [place], [place] [address] [place] [address] Marbella Garcia M.D. Anemia Iron Deficiency Blood Loss Chronic (Primary Dx); Malignant Neoplasm Of Colon (HCC) 03/26/2024 12:[address] SHAFT AND STEERING POST REPAIRER - 03/26/2024 3:[address] SHAFT AND STEERING POST REPAIRER Hospital Encounter Department of Laboratory Medicine and Pathology, [facility] in [place], [place] [address] [place] [address] Estuardo Amin P.A.-C. Malignant Neoplasm Of Colon (HCC) Discharge Disposition: Home or Self Care 03/24/2024 Orders Only Division of Colon and Rectal Surgery in [place], [place] [address] [place] [address] Estuardo Amin P.A.-C. 03/19/2024 3:[address] SHAFT AND STEERING POST REPAIRER Lab RST RO LMP [address] [place] [phone] Marbella Garcia M.D. Polyp Colon 03/19/2024 8:[address] SHAFT AND STEERING POST REPAIRER Comprehensive Visit Division of Colon and Rectal Surgery in [place], [place] [address] [place] [phone] Estuardo Amin P.A.-C. Malignant Neoplasm Of Colon (HCC) (Primary Dx) 03/19/2024 7:[address] SHAFT AND STEERING POST REPAIRER - 03/19/2024 11:[address] SHAFT AND STEERING POST REPAIRER Hospital Encounter Department of Laboratory Medicine and Pathology, [facility], in [place], [place] [address] [place] [phone] Estuardo Amin P.A.-C. Malignant Neoplasm Of Colon (HCC) Discharge Disposition: Home or Self Care 03/19/2024 Orders Only Division of Colon and Rectal Surgery in [place], [place] [address] [place] [phone] Estuardo Amin P.A.-C. 03/19/2024 Orders Only Division of Colon and Rectal Surgery in [place], [place] [address] [place] [phone] Estuardo Amin P.A.-C. Malignant Neoplasm Of Colon (HCC) (Primary Dx) 03/19/2024 Clinical Communication Division of Colon and Rectal Surgery in [place], [place] [address] [place] [phone] Marbella Garcia M.D. Outside pathology orders 03/17/2024 11:[address] SHAFT AND STEERING POST REPAIRER Ancillary Procedure Department of Radiology in [place], [place] [address] [place] [phone] Estuardo Amin P.A.-C. Malignant Neoplasm Of Colon (HCC) 03/17/2024 11:[address] SHAFT AND STEERING POST REPAIRER Ancillary Procedure Department of Radiology in [place], [place] [address] [place] [phone] Estuardo Amin P.A.-C. Malignant Neoplasm Of Colon (HCC) 03/17/2024 Orders Only Division of Colon and Rectal Surgery in [place], [place] [address] [place] [phone] Marbella Garcia M.D. Polyp Colon (Primary Dx) 03/16/2024 1:[address] SHAFT AND STEERING POST REPAIRER Ancillary Procedure Department of Radiology in [place], [place] [address] [place] [address] Estuardo Amin P.A.-C. Malignant Neoplasm Of Colon (HCC) 03/16/2024 Orders Only Division of Colon and Rectal Surgery in [place], [place] [address] [place] [address] Estuardo Amin P.A.-C. Malignant Neoplasm Of Colon (HCC) (Primary Dx) 03/16/2024 Orders Only Division of Colon and Rectal Surgery in [place], [place] [address] [place] [address] Galen Verma P.A.-C., M.S. 03/13/2024 Clinical Communication Division of Colon and Rectal Surgery in [place], [place] [address] [place] [address] Prescheduling, Provider 02/14/2024 9:[address] SHAFT AND STEERING POST REPAIRER Ancillary Procedure Department of Gastroenterology 02/14/[address] [address] Ary Robbins M.D. Genetic Susceptibility To Other Malignant Neoplasm (Primary Dx) from Last 3 Months Social History Tobacco Use Types Packs/Day Years Used Date Smoking Tobacco: Never Passive Smoke Exposure: Never Smokeless Tobacco: Never [facility] Utilities Answer Date Recorded In the past 12 months has [employer], oil, or water [employer] threatened to shut off services in your [...] your living situation today? I have a [facility] place to live 11/27/2023 Comments Unknown Sex and Gender Information Value Date Recorded Sex Assigned at Female 11/27/2023 7:44 PM CDT Legal Sex Female 4:15 PM CDT Gender Identity Female 11/27/2023 7:44 PM CDT Sexual Orientation Straight 11/27/2023 7: 44 PM CDT Last Filed Vital Signs Vital Sign Reading Time Taken Comments Blood Pressure 139/81 03/19/2024 7:[address] SHAFT AND STEERING POST REPAIRER Pulse 87 03/19/2024 7:[address] SHAFT AND STEERING POST REPAIRER Temperature - - Respiratory Rate - - Oxygen Saturation - - Inhaled Oxygen Concentration - - Weight 106 kg (234 lb 5.6 oz) 03/19/2024 7:[address] SHAFT AND STEERING POST REPAIRER Height 167.5 cm (5' 5.95) 03/19/2024 7:52 AM CS T Body Mass Index 37.89 03/19/2024 7:[address] SHAFT AND STEERING POST REPAIRER Plan of Treatment Upcoming Encounters Date Type Department Care Team (Latest Contact Info) Description 04/09/2024 9:[address] SHAFT AND STEERING POST REPAIRER Telemedicine Department of Obstetrics and Gynecology, Division of Gynecologic Oncology in [place], [place] [address] [place] [address] Luis Johns M.D. 200 [place] [address] 04/10/2024 7:[address] SHAFT AND STEERING POST REPAIRER Hospital Encounter RST RO 01 4 AM ADMIT [address] [place] [address] Marbella Garcia M.D. [address] [place] [address] 04/10/2024 7:[address] SHAFT AND STEERING POST REPAIRER - 04/10/2024 1:[address] SHAFT AND STEERING POST REPAIRER Surgery [facility] [address] [place] [address] Marbella Garcia M.D. [address] [place] [address] LAPAROSCOPIC COLECTOMY extended RIGHT WITH ANASTOMOSIS 05/01/2024 10:[address] SHAFT AND STEERING POST REPAIRER Office Visit Department of Medical Genetics in [place], [place] [address] [place] [address] Ary Robbins M.D. [address] [place] [phone] Rasheeda Reynolds M.S., [facility] [address] [place] [address] Scheduled Procedures Name Priority Associated Diagnoses Date/Ti me LAPAROSCOPIC COLECTOMY RIGHT WITH ANASTOMOSIS Malignant Neoplasm Of Colon (HCC) 04/10/2024 7:[address] SHAFT AND STEERING POST REPAIRER LAPAROSCOPIC SALPINGO-OOPHORECTOMY Malignant Neoplasm Of Colon (HCC) 04/10/2024 7:[address] SHAFT AND STEERING POST REPAIRER TRACHELECTOMY VAGINA Malignant Neoplasm Of Colon (HCC) 04/10/2024 7:[address] SHAFT AND STEERING POST REPAIRER Health Maintenance Due Date Last Done Comments CT Colonography 1965 Cologuard 1965 Colonoscopy 1965 Colorectal Cancer Surveillance 1965 HIV Screening 1965 Hepatitis C Screening 1965 Lipid (Cholesterol) Screening 1965 Mammogram 1965 Hepatitis B Vaccines (1 of 3 - 19+ 3-dose series) 1984 Pneumococcal vaccine (50+ years) (1 of 1 - PCV) 10/12/2015 COVID-19 Vaccine (5 - season) 2023 01/10/2023, 02/28/2021, 07/02/2020, Additional history exists Depression Screening (Annual PHQ-2) 03/18/2024 Creatinine Level (Kidney Function Test) 03/19/2025 03/19/2024 Office Visit for Blood Pressure Check / Re-check 03/19/2025 03/19/2024 Potassium Level 03/19/2025 03/19/2024 Sodium Level 03/19/2025 03/19/2024 DTaP,Tdap,and Td Vaccines (3 - Td or Tdap) 11/02/2026 11/02/2016, 08/21/2007, 10/25/1997 Fasting Glucose for Diabetes Screening 03/19/2027 03/19/2024 Zoster Vaccines Completed 10/22/2017, 07/09/2017 Cervical/Vaginal Cancer Screening Discontinued 03/31/2021 Influenza Vaccine Completed 12/05/2023, , 03/24/2021, Additional history exists IPV Vaccines Aged Out No longer eligi ble based on patient's age to complete this topic Goals Goal Patient Goal Type Associated Problems Recent Progress Patient-Stated? Author [facility] Care Plan for Nicotine Dependency Perioperative Care Plan [facility] Care Plan for Nicotine Dependency Perioperative No Lupe Joshi RRandeeN. Surgical Readiness and Recovery Care Plan Care Plan Surgical Readiness and Recovery Care Plan No Lupe Joshi R.N. Procedures Procedure Name Priority Date/Time Associated Diagnosis Comments TYPE AND SCREEN Routine 03/26/2024 3:[address] SHAFT AND STEERING POST REPAIRER Malignant Neoplasm Of Colon (HCC) CBC WITHOUT DIFFERENTIAL, B Routine 03/26/2024 1:[address] SHAFT AND STEERING POST REPAIRER Malignant Neoplasm Of Colon (HCC) ECG Routine 03/19/2024 9:[address] SHAFT AND STEERING POST REPAIRER Malignant Neoplasm Of Colon (HCC) COMPREHENSIVE METABOLIC PANEL, S/P Routine 03/19/2024 7:[address] SHAFT AND STEERING POST REPAIRER Malignant Neoplasm Of Colon (HCC) CBC WITHOUT DIFFERENTIAL, B Routine 03/19/2024 7:[address] SHAFT AND STEERING POST REPAIRER Malignant Neoplasm Of Colon (HCC) CARCINOEMBRYONIC AG (CEA), S Routine 03/19/2024 7:[address] SHAFT AND STEERING POST REPAIRER Malignant Neoplasm Of Colon (HCC) INTERPRETATION OF OUTSIDE CT ABDOMEN AND OR PELVIS RAD - Routine (most inpatients and all outpatients) 03/17/2024 11:[address] SHAFT AND STEERING POST REPAIRER Malignant Neoplasm Of Colon (HCC) INTERPRETATION OF OUTSIDE CT CHEST RAD - Routine (most inpatients and all outpatients) 03/17/2024 11:[address] SHAFT AND STEERING POST REPAIRER Malignant Neoplasm Of Colon (HCC) INTERPRETATION OF OUTSIDE NM PET SCAN RAD - Routine (most inpatients and all outpatients) 03/16/2024 1:[address] SHAFT AND STEERING POST REPAIRER Malignant Neoplasm Of Colon (HCC) OUTSIDE NM PET Routine 02/20/2024 3:[address] SHAFT AND STEERING POST REPAIRER GASTROENTEROLOGY IMAGE EXAM Routine 02/14/2024 9:[address] SHAFT AND STEERING POST REPAIRER OUTSIDE CT BODY Routine 02/05/2024 3:[address] SHAFT AND STEERING POST REPAIRER PATHOLOGY REVIEW OF OUTSIDE MATERIAL Routine 01/27/2024 11:[address] SHAFT AND STEERING POST REPAIRER Polyp Colon from Last 3 Months Results * Type and Screen (with Reflex Antibody ID) (03/26/2024 3:[address] SHAFT AND STEERING POST REPAIRER) ABORh A Neg Not applicable 03/26/2024 4:[address] SHAFT AND STEERING POST REPAIRER ETRM Antibody Screen Negative Negative 03/26/2024 4:[address] SHAFT AND STEERING POST REPAIRER ETRM Type & Screen Expiration 05/24/2024 23:59 03/26/2024 4:[address] SHAFT AND STEERING POST REPAIRER ETRM Testing Location [place] DEFAULT 03/26/2024 4:[address] SHAFT AND STEERING POST REPAIRER ETRM Blood (Blood, Venous) 03/26/2024 3:[address] SHAFT AND STEERING POST REPAIRER 03/26/2024 4:[address] SHAFT AND STEERING POST REPAIRER us Marbella Garcia M.D. LAB BLOOD BANK TEST ORDERAB LES Final Result Performing Organization Address [facility]/ZIP Co de Phone Number [facility] [address] [place] [address], [facility] ETRM [facility] [address] [place] [address] * (ABNORMAL) CBC without Differential (03/26/2024 1:[address] SHAFT AND STEERING POST REPAIRER) Only the most recent of2 resultswithin the time period is included. Pathologist [facility] Hemoglobin 8.7(L) 11.6 - 15.0 g/dL 03/26/2024 1:[address] SHAFT AND STEERING POST REPAIRER DTL Hematocrit 30.1(L) 35.5 - 44.9 % 03/26/2024 1:[address] SHAFT AND STEERING POST REPAIRER DTL Erythrocytes 3.83(L) 3.92 - 5.13 x10(12)/L 03/26/2024 1:[address] SHAFT AND STEERING POST REPAIRER DTL MCV 78.6 78.2 - 97.9 fL 03/26/2024 1:[address] SHAFT AND STEERING POST REPAIRER DTL RBC Distrib Width 23.1(H) 12.2 - 16.1 % 03/26/2024 1:[address] SHAFT AND STEERING POST REPAIRER DTL Platelet Count 442(H) 157 - 371 x10(9)/L 03/26/2024 1:[address] SHAFT AND STEERING POST REPAIRER DTL Leukocytes 10.1(H) 3.4 - 9.6 x10(9)/L 03/26/2024 1:[address] SHAFT AND STEERING POST REPAIRER DTL Blood (Blood, Venous) 03/26/2024 1:[address] SHAFT AND STEERING POST REPAIRER 03/26/2024 1:[address] SHAFT AND STEERING POST REPAIRER us Estuardo Amin P.A.-C. LAB BLOOD ADD-ON Final Re sult Performing Organization Address City/[facility]/ZIP Co de Phone Number [facility] [address] [place] [address], [facility] DTL [facility] [address] [place] [address] * ECG 12 Lead (03/19/2024 9:[address] SHAFT AND STEERING POST REPAIRER) Pathologist [facility] Ventricular Rate ECG/Min 76 BPM MUSE NJ Interval 182 ms MUSE QRSD Interval 94 ms MUSE QT Interval 402 ms MUSE QTC Interval 452 ms MUSE P [place] 8 degrees MUSE R [place] -1 degrees MUSE T Wave [place] 24 degrees MUSE 03/19/2024 9:[address] SHAFT AND STEERING POST REPAIRER 03/19/2024 9:[address] SHAFT AND STEERING POST REPAIRER Impressions MUSE - 03/19/2024 9:[address] SHAFT AND STEERING POST REPAIRER Normal sinus rhythm Minimal voltage criteria for LVH, may be normal variant Nonspecific ST abnormality No previous ECGs available Reviewed by CRISTIAN Mei Narrative Procedure Note Rogelio Kurtz M.D., Ph.D. - 03/19/2024 IMPRESSION: Normal sinus rhythm Minimal voltage criteria for LVH, may be normal variant Nonspecific ST abnormality No previous ECGs available Reviewed by CRISTIAN Mei Estuardo Amin P.A.-C. ECG ORDERABLES Final Res ult Performing Organization Address [facility] de Phone Number [place] NA * (ABNORMAL) CEA (Carcinoembryonic Antigen) (03/19/2024 7:[address] SHAFT AND STEERING POST REPAIRER) Carcinoembryonic Ag (CEA), S 3.3(H) ng/mL 03/19/2024 3:[address] SHAFT AND STEERING POST REPAIRER [facility] Comment: ----REFERENCE VALUE---- <=3.0 (Non-smokers) Some smokers may have elevated CEA, usually <5.0. ----ADDITIONAL INFORMATION---- The testing method is an immunoenzymatic assay manufactured by [employer] and performed on the [employer] DxI 800. Values obtained with different assay methods or kits may be different and cannot be used interchangeably. Test results cannot be interpreted as absolute evidence for the presence or absence of malignant disease. Blood (Blood, Venous) 03/19/2024 7:[address] SHAFT AND STEERING POST REPAIRER 03/19/2024 2:[address] SHAFT AND STEERING POST REPAIRER Estuardo Amin P.A.-C. LAB BLOOD ADD-ON Final Re sult Performing Organization Address [facility]/ZIP Co de Phone Number [facility] [address] [place] [address] [facility] [address] [place] [address] * (ABNORMAL) Comprehensive Metabolic Panel (03/19/2024 7:[address] SHAFT AND STEERING POST REPAIRER) Potassium, S 3.5(L) 3.6 - 5.2 mmol/L 03/19/2024 8:[address] SHAFT AND STEERING POST REPAIRER DTL Sodium, S 140 135 - 145 mmol/L 03/19/2024 8:[address] SHAFT AND STEERING POST REPAIRER DTL Chloride, S 95(L) 98 - 107 mmol/L 03/19/2024 8:[address] SHAFT AND STEERING POST REPAIRER DTL Bicarbonate, S 30(H) 22 - 29 mmol/L 03/19/2024 8:[address] SHAFT AND STEERING POST REPAIRER DTL Anion Gap 15 7 - 15 03/19/2024 8:[address] SHAFT AND STEERING POST REPAIRER DTL BUN (Blood Urea Nitrogen), S 13 6 - 21 mg/dL 03/19/2024 8:[address] SHAFT AND STEERING POST REPAIRER DTL Creatinine 0.55(L) 0.59 - 1.04 mg/dL 03/19/2024 8:[address] SHAFT AND STEERING POST REPAIRER DTL Estimated GFR (eGFR) >90 >=60 mL/min/BS A 03/19/2024 8:[address] SHAFT AND STEERING POST REPAIRER DTL Comment: Estimated GFR calculated using the 2020 CKD_EPI creatinine equation. Calcium, Total, S 9.8 8.6 - 10.0 mg/dL 03/19/2024 8:[address] SHAFT AND STEERING POST REPAIRER DTL Glucose, S 129 70 - 140 mg/dL 03/19/2024 8:[address] SHAFT AND STEERING POST REPAIRER DTL Protein, Total, S 7.4 6.3 - 7.9 g/dL 03/19/2024 8:[address] SHAFT AND STEERING POST REPAIRER DTL Albumin, S 4.1 3.5 - 5.0 g/dL 03/19/2024 8:[address] SHAFT AND STEERING POST REPAIRER DTL Aspartate Aminotransferase (AST), S 15 8 - 43 U/L 03/19/2024 8:[address] SHAFT AND STEERING POST REPAIRER DTL Alkaline Phosphatase, S 78 35 - 104 U/L 03/19/2024 8:[address] SHAFT AND STEERING POST REPAIRER DTL Alanine Aminotransferase (ALT), S <7(L) 7 - 45 U/L 03/19/2024 9:[address] SHAFT AND STEERING POST REPAIRER DTL Bilirubin, Total, S 0.3 0.0 - 1.2 mg/dL 03/19/2024 8:[address] SHAFT AND STEERING POST REPAIRER DTL Blood (Blood, Venous) 03/19/2024 7:[address] SHAFT AND STEERING POST REPAIRER 03/19/2024 8:[address] SHAFT AND STEERING POST REPAIRER us Estuardo Amin P.A.-C. LAB BLOOD ADD-ON Final Re sult [facility] [address] [place] [address], [facility] DTL [facility] [address] [place] [address] * Interpretation of Outside CT Abdomen and or Pelvis (03/17/2024 11:[address] SHAFT AND STEERING POST REPAIRER) Anatomical Region Laterality Modality Abdomen, Pelvis, Abdominal R ST LOS, Abdominal ARZ LOS, Abdominal FLA LOS, Other N/A Computed Tomography Impressions 03/19/2024 7:[address] SHAFT AND STEERING POST REPAIRER Primary colonic neoplasm and transverse colon with small adjacent lymph nodes which may represent local regional metastases. No findings for distant metastatic disease in the abdomen or pelvis. Narrative 03/19/2024 7:[address] SHAFT AND STEERING POST REPAIRER EXAM: INTERPRETATION OF OUTSIDE CT ABDOMEN AND [...] the abdomen or pelvis. Estuardo Amin P.A.-C. IMG CT PROCEDURES Final R esult * Interpretation of Outside CT Chest (03/17/2024 11:[address] SHAFT AND STEERING POST REPAIRER) Anatomical Region Laterality Modality Chest, Thoracic RST LOS, Tho racic ARZ LOS, Thoracic FLA LOS, Other, Body N/A Computed Tomography Impressions 03/17/2024 12:[address] SHAFT AND STEERING POST REPAIRER Tiny indeterminate pulmonary nodules measure up to 3 mm. Narrative 03/17/2024 12:[address] SHAFT AND STEERING POST REPAIRER EXAM: INTERPRETATION OF OUTSIDE CT CHEST with [...] pulmonary nodules measure up to 3 mm. us Estuardo Amin P.A.-C. IMG CT PROCEDURES Final R esult * Interpretation of Outside NM PET Scan (03/16/2024 1:[address] SHAFT AND STEERING POST REPAIRER) Anatomical Region Laterality Modality Nuclear Medicine PET RST LOS , Nuclear Medicine ARZ LOS, Nuclear Medicine FLA LOS, Nuclear Medicine, Other, Neuroradiology ARZ LOS, Neuroradiology FLA LOS, Neuroradiology RST LOS, Body N/A Nuclear Medicine Impressions 03/17/2024 9:[address] SHAFT AND STEERING POST REPAIRER 1. Intense FDG activity at the left transverse lesion consistent with biopsy-proven malignancy. 2. No evidence of FDG avid lymphadenopathy in the chest, abdomen and pelvis. 3. Indeterminate hypodense right adrenal nodule without significant FDG activity. 4. Increased FDG activity with opacification of the right ethmoidal and sphenoid sinuses as well as prominent tonsils most likely infectious/inflammatory in nature. Narrative 03/17/2024 9:[address] SHAFT AND STEERING POST REPAIRER EXAM: INTERPRETATION OF OUTSIDE NM PET SCAN [...] the spine with mild anterior wedging of [id number] body. IMPRESSION: 1. Intense FDG activity at the left transverse lesion consistent withbiopsy- proven malignancy. 2. No evidence of FDG avid lymphadenopathy in the chest, abdomen andpelvis. 3. Indeterminate hypodense right adrenal nodule without significant FDGactivity. 4. Increased FDG activity with opacification of the right ethmoidal andsphenoid sinuses as well as prominent tonsils most likelyinfectious/inflammatory in nature. Estuardo Amin P.A.-C. IM NM PROCEDURES Final R esult * PET skull to mid thigh-Outside NM Pet (02/20/2024 3:[address] SHAFT AND STEERING POST REPAIRER) Narrative [facility] - 02/20/2024 8:[address] SHAFT AND STEERING POST REPAIRER This order has been created and auto-finalized to support the import of outside images. If available, original interpretation can be found on the Media Tab in Chart Review, in Document Viewer, as an image in QREADS or as an Addendum. If a re-interpretation or overread is required please follow defined workflow. Provider Not In System [facility] [place] PROCEDURES Final R esult [facility] NA * Unspecified-Gastroenterology Image Exam (02/14/2024 9:[address] SHAFT AND STEERING POST REPAIRER) 02/14/2024 9:[address] SHAFT AND STEERING POST REPAIRER Narrative [facility] - 02/14/2024 9:[address] SHAFT AND STEERING POST REPAIRER This order has been created and auto-finalized to support the import of images acquired without order. The clinical documentation to support these images can be found on the encounter that produced images. Provider Not In System IMG NON RAD IMAGING PROCE DURES Final Result [facility] NA * CT chest abdomen pelv w con-Outside CT Body (02/05/2024 3:[address] SHAFT AND STEERING POST REPAIRER) Narrative [facility] - 03/16/2024 2:[address] SHAFT AND STEERING POST REPAIRER This order has been created and auto-finalized to support the import of outside images. If available, original interpretation can be found on the Media Tab in Chart Review, in Document Viewer, as an image in QREADS or as an Addendum. If a re-interpretation or overread is required please follow defined workflow. us Provider Not In System IMG CT PROCEDURES Final R esult Performing Organization Address [facility] de Phone Number [facility] NA * Pathology Review of Outside Material (01/27/2024 11:[address] SHAFT AND STEERING POST REPAIRER) 03/20/2024 3:[address] SHAFT AND STEERING POST REPAIRER DTL Report electronically signed by Terrell Warner M.D., Ph.D. I verify that I have examined all relevant slides/materials for the specimen(s) and rendered or confirmed the diagnosis. 03/20/2024 3:[address] SHAFT AND STEERING POST REPAIRER DTL Material Received A. [id number]: Transverse colon 11 stained slides 03/20/2024 3:[address] SHAFT AND STEERING POST REPAIRER DTL Interpretation FINAL DIAGNOSIS Colon, Transverse, Lesion, biopsy ([id number]; 01/27/2024): Invasive adenocarcinoma with ulceration. The submitted DNA mismatch repair protein immunostains show loss expression of MLH1 and PMS2 (dMMR). Digital imaging was used in the diagnostic assessment of this case. 03/20/2024 3:[address] SHAFT AND STEERING POST REPAIRER DTL Varies 01/27/2024 11:[address] SHAFT AND STEERING POST REPAIRER 03/19/2024 1:[address] SHAFT AND STEERING POST REPAIRER us Marbella Garcia M.D. LAB SURG PATH ORDERABLES Fi nal Result Performing Organization Address [facility] Co de Phone Number [facility] [address] [place] [address], [facility] DTL [address] [place] [address] from Last 3 Months Additional Health Concerns Active Problems Noted Date Diagnosed Date [facility] Care Plan for Nicotine Dependency Pe rioperative 03/26/2024 Surgical Readiness and Recovery Care Plan 2024 Insurance [facility] [place]
--- OUTSIDE RECORDS SUMMARY | 2024-04-05 14:44 | XMS_ITS ---
Author Organization [facility] Address [address] [place] [address] Care Team Providers Care Objective C Developer Name Role Phone Unavailable Unavailable Unavailable Surgery Details Not on file Complications Check Surgery Details section. Procedure Estimated Blood Loss Check Surgery Details section. Procedure Findings Check Surgery Details section. Procedure Specimens Taken Check Surgery Details section.
--- OUTSIDE RECORDS SUMMARY | 2024-04-05 14:44 | XMS_ITS | Encounter Summary ---
Author Organization [facility] Address [address] [place] [address] Care Team Providers Care Build Engineer Name Role Phone Unavailable Primary Care Provider Unavailabl e Encounter Details Date Type Department Care Team (Late st Contact Info) Description 03/30/2024 Orders Only Division of Colon and Rectal Surgery in [place], [place] [address] [place] [phone] Marbella Garcia M.D. [address] [place] [phone] Malignant Neoplasm Of Colon (HCC) (Primary Dx) Social History Tobacco Use Types Packs/Day Years Used Date Smoking Tobacco: Never Passive Smoke Exposure: Never Smokeless Tobacco: Never [facility] Utilities Answer Date Recorded In the past [...] living situation today? I have a [facility] place to live 11/27/2023 Comments [...] (Latest Contact Info) Description 04/09/2024 9:15 AM DRAWING INSTRUCTOR Telemedicine Department of Obstetrics and Gynecology, Division of Gynecologic Oncology in [place], [place] [address] [place] [address] Luis Johns M.D. [address] [place] [address] 04/10/2024 7:25 AM DRAWING INSTRUCTOR Hospital Encounter RST ROEI 01 4 AM ADMIT [address] [place] [address] Marbella Garcia M.D. [address] [place] [phone] 04/10/2024 7:25 AM DRAWING INSTRUCTOR - 04/10/2024 1:16 PM DRAWING INSTRUCTOR Surgery RST RO MAIN OR [address] [place] [address] Marbella Garcia M.D. [address] [place] [address] LAPAROSCOPIC COLECTOMY extended RIGHT WITH ANASTOMOSIS 05/01/2024 10:30 AM DRAWING INSTRUCTOR Office Visit Department of Medical Genetics in [place], [place] [address] [place] [address] Ary Robbins M.D. [address] [place] [phone] Rasheeda Reynolds M.S., [facility] [place] [place] [address] [place] [phone] Scheduled Procedures Name Priority Associated Diagnoses Date/Ti me LAPAROSCOPIC COLECTOMY RIGHT WITH ANASTOMOSIS Malignant Neoplasm Of Colon (HCC) 04/10/2024 7:25 AM DRAWING INSTRUCTOR LAPAROSCOPIC SALPINGO-OOPHORECTOMY Malignant Neoplasm Of Colon (HCC) 04/10/2024 7:25 AM DRAWING INSTRUCTOR TRACHELECTOMY VAGINA Malignant Neoplasm Of Colon (HCC) 04/10/2024 7:25 AM DRAWING INSTRUCTOR documented as of this encounter Goals Goal Patient Goal Type Associated Problems Recent Progress Patient-Stated? Author [facility] Care Plan for Nicotine Dependency Perioperative Care Plan [facility] Care Plan for Nicotine Dependency Perioperative No Lupe Joshi, R.N. Surgical Readiness and Recovery Care Plan Care Plan Surgical Readiness and Recovery Care Plan No Lupe Joshi, R.N. documented as of this encounter Visit Diagnoses Diagnosis Malignant Neoplasm Of Colon (HCC)- Primary Malignant Neoplasm Of Colon (HCC)- Primary Malignant Neoplasm Of Colon (HCC) documented in this encounter Additional Health Concerns Active Problems Noted Date Diagnosed Date [facility] Care Plan for Nicotine Dependency Pe rioperative 03/26/2024 Surgical Readiness and Recovery Care Plan 2024 documented as of this encounter
--- OUTSIDE RECORDS SUMMARY | 2024-04-05 14:45 | XMS_ITS | Encounter Summary ---
Author Organization [facility] Address [address] [place] [address] Care Team Providers Care Intranet Developer Name Role Phone Unavailable Primary Care Provider Unavailabl e Encounter Details Date Type Department Care Team (Latest Contact Info) Description 03/26/2024 3:22 PM INSTRUCTOR DRAMATIC ARTS - 03/26/2024 11:59 PM INSTRUCTOR DRAMATIC ARTS Hospital Encounter Department of Laboratory Medicine and Pathology, [facility], in [place], [place] [address] [place] [address] Marbella Garcia M.D. [address] [place] [phone] Malignant Neoplasm Of Colon (HCC) Discharge Disposition: Home or Self Care Social History Tobacco Use Types Packs/Day Years Used Date Smoking Tobacco: Never Passive Smoke Exposure: Never Smokeless Tobacco: Never [facility] Utilities Answer Date Recorded In the past 12 months has [facility] [employer], gas, oil, or water [employer] threatened to shut off services in your [...] your living situation today? I have a [facility] place to live 11/27/2023 Comments Unknown Sex and Gender Information Value Date Recorded Sex Assigned at Female 11/27/2023 7:44 PM CDT Legal Sex Female 4:15 PM CDT Gender Identity Female 11/27/2023 7:44 PM CDT Sexual Orientation Straight 11/27/2023 7: 44 PM CDT documented as of this encounter Medications at Time of Discharge atenoloL (Tenormin) 50 mg tablet Take 50 mg by mouth 2 (two) times a day. carbidopa-levodopa (Sinemet) 25-100 mg per tablet Take 1 tablet by mouth every 4 (four) hours PM. 11/21/2023 DULoxetine (Cymbalta) [address] capsule Take 1 capsule by mouth 2 (two) times a day. 09/16/2023 fluticasone propionate (Flonase) 50 mcg/actuation nasal spray Administer 2 sprays into each nostril daily. 05/29/2010 GaviLyte-C 240-22.72-6.72 -5.84 gram solution 01/23/2024 hydroCHLOROthiazide (HydroDiuril) 25 mg tablet Take 25 mg by mouth daily. NORETHINDRONE-ETHIN ESTRADIOL ORAL See Admin Instructions. nystatin-triamcinol one (Mycolog II) 100,000 Unit/g-0.1 % cream APPLY TO THE CORNERS OF MOUTH NIGHTLY NEEDED. 01/15/2024 ondansetron ODT (Zofran-ODT) 4 mg disintegrating tablet Dissolve 4 mg in the mouth every 8 (eight) hours as needed for nausea or vomiting. potassium chloride (K-Tab) 20 mEq ER tablet Take 2 tablets by mouth daily. 03/17/2024 simvastatin (Zocor) 5 mg tablet Take 1 tablet by mouth daily. 10/06/2023 SUMAtriptan (Imitrex) 50 mg tablet Take 50 mg by mouth as needed. 06/16/2021 documented as of this encounter Plan of Treatment Upcoming Encounters Date Type Department Care Team (Latest Contact Info) Description 04/09/2024 9:15 AM INSTRUCTOR DRAMATIC ARTS Telemedicine Department of Obstetrics and Gynecology, Division of Gynecologic Oncology in [place], [place] [address] [place] [phone] Luis Johns M.D. [address] [place] [phone] 04/10/2024 7:25 AM INSTRUCTOR DRAMATIC ARTS Hospital Encounter [facility] 4 AM ADMIT [address] [place] [address] Marbella Garcia M.D. [address] [place] [phone] 04/10/2024 7:25 AM INSTRUCTOR DRAMATIC ARTS - 04/10/2024 1:16 PM INSTRUCTOR DRAMATIC ARTS Surgery [facility] MAIN OR [address] [place] [address] Marbella Garcia M.D. [address] [place] [address] LAPAROSCOPIC COLECTOMY extended RIGHT WITH ANASTOMOSIS 05/01/2024 10:30 AM INSTRUCTOR DRAMATIC ARTS Office Visit Department of Medical Genetics in [place], [place] [address] [place] [address] Ary Robbins M.D. [address] [place] [address] Rasheeda Reynolds M.S., [facility] [address] [place] [address] Scheduled Procedures Name Priority Associated Diagnoses Date/Ti me LAPAROSCOPIC COLECTOMY RIGHT WITH ANASTOMOSIS Malignant Neoplasm Of Colon (HCC) 04/10/2024 7:25 AM INSTRUCTOR DRAMATIC ARTS LAPAROSCOPIC SALPINGO-OOPHORECTOMY Malignant Neoplasm Of Colon (HCC) 04/10/2024 7:25 AM INSTRUCTOR DRAMATIC ARTS TRACHELECTOMY VAGINA Malignant Neoplasm Of Colon (HCC) 04/10/2024 7:25 AM INSTRUCTOR DRAMATIC ARTS documented as of this encounter Goals Goal Patient Goal Type Associated Problems Recent Progress Patient-Stated? Author [facility] Care Plan for Nicotine Dependency Perioperative Care Plan [facility] Care Plan for Nicotine Dependency Perioperative No Lupe Joshi, RRandeeN. Surgical Readiness and Recovery Care Plan Care Plan Surgical Readiness and Recovery Care Plan No Lupe Joshi RRandeeN. documented as of this encounter Procedures Procedure Name Priority Date/Time Associated Diagnosis Comments TYPE AND SCREEN Routine 03/26/2024 3:36 PM INSTRUCTOR DRAMATIC ARTS Malignant Neoplasm Of Colon (HCC) documented in this encounter Results * Type and Screen (with Reflex Antibody ID) (03/26/2024 3:36 PM INSTRUCTOR DRAMATIC ARTS) ABORh A Neg Not applicable 03/26/2024 4:34 PM INSTRUCTOR DRAMATIC ARTS ETRM Antibody Screen Negative Negative 03/26/2024 4:47 PM INSTRUCTOR DRAMATIC ARTS ETRM Type & Screen Expiration 05/24/2024 23:59 03/26/2024 4:34 PM INSTRUCTOR DRAMATIC ARTS ETRM Testing Location [place] DEFAULT 03/26/2024 4:01 PM INSTRUCTOR DRAMATIC ARTS ETRM Blood (Blood, Venous) 03/26/2024 3:36 PM INSTRUCTOR DRAMATIC ARTS 03/26/2024 4:01 PM INSTRUCTOR DRAMATIC ARTS us Marbella Garcia M.D. LAB BLOOD BANK TEST ORDERAB LES Final Result [facility] [address] [place] [address], [facility] ETRM [facility] [address] [place] [address] documented in this encounter Visit Diagnoses Diagnosis Malignant Neoplasm Of Colon (HCC)- Primary Malignant Neoplasm Of Colon (HCC) Malignant Neoplasm Of Colon (HCC) documented in this encounter Additional Health Concerns Active Problems Noted Date Diagnosed Date [facility] Care Plan for Nicotine Dependency Pe rioperative 03/26/2024 Surgical Readiness and Recovery Care Plan 2024 documented as of this encounter
--- OUTSIDE RECORDS SUMMARY | 2024-04-05 14:46 | XMS_ITS | Encounter Summary ---
Author Organization [facility] Address [address] [place] [address] Care Team Providers Care Choreography Director Name Role Phone Unavailable Primary Care Provider Unavailabl e Encounter Details Date Type Department Care Team (Late st Contact Info) Description 03/19/2024 3:45 PM CLINICAL PROJECT LEADER Lab RST RO LMP [address] [place] [phone] Marbella Garcia M.D. [address] [place] [phone] Polyp Colon Social History Tobacco Use Types Packs/Day Years Used Date Smoking Tobacco: Never Passive Smoke Exposure: Never Smokeless Tobacco: Never [facility] Utilities Answer Date Recorded In [...] your living situation today? I have a [facility] place to live 11/27/2023 Comments [...] (Latest Contact Info) Description 04/09/2024 9:15 AM CLINICAL PROJECT LEADER Telemedicine Department of Obstetrics and Gynecology, Division of Gynecologic Oncology in [place], [place] [address] [place] [address] Luis Johns M.D. [address] [place] [address] 04/10/2024 7:25 AM CLINICAL PROJECT LEADER Hospital Encounter RST RO 4 AM ADMIT [address] [place] [address] Marbella Garcia M.D. [address] [place] [phone] 04/10/2024 7:25 AM CLINICAL PROJECT LEADER - 04/10/2024 1:16 PM CLINICAL PROJECT LEADER Surgery RST [facility] MAIN OR [address] [place] [address] Marbella Garcia M.D. [address] [place] [address] LAPAROSCOPIC COLECTOMY extended RIGHT WITH ANASTOMOSIS 05/01/2024 10:30 AM CLINICAL PROJECT LEADER Office Visit Department of Medical Genetics in [place], [place] [address] [place] [phone] Ary Robbins M.D. [address] [place] [address] Rasheeda Reynolds M.S., [facility] [address] [place] [phone] Scheduled Procedures Name Priority Associated Diagnoses Date/Ti me LAPAROSCOPIC COLECTOMY RIGHT WITH ANASTOMOSIS Malignant Neoplasm Of Colon (HCC) 04/10/2024 7:25 AM CLINICAL PROJECT LEADER LAPAROSCOPIC SALPINGO-OOPHORECTOMY Malignant Neoplasm Of Colon (HCC) 04/10/2024 7:25 AM CLINICAL PROJECT LEADER TRACHELECTOMY VAGINA Malignant Neoplasm Of Colon (HCC) 04/10/2024 7:25 AM CLINICAL PROJECT LEADER documented as of this encounter Procedures Procedure Name Priority Date/Time Associated Diagnosis Comments PATHOLOGY REVIEW OF OUTSIDE MATERIAL Routine 01/27/2024 11:08 AM CLINICAL PROJECT LEADER Polyp Colon documented in this encounter Results * Pathology Review of Outside Material (01/27/2024 11:08 AM CLINICAL PROJECT LEADER) 03/20/2024 3:15 PM CLINICAL PROJECT LEADER DTL Report electronically signed by Terrell Warner M.D., Ph.D. I verify that I have examined all relevant slides/materials for the specimen(s) and rendered or confirmed the diagnosis. 03/20/2024 3:15 PM CLINICAL PROJECT LEADER DTL Material Received A. [id number]: Transverse colon 11 stained slides 03/20/2024 3:15 PM CLINICAL PROJECT LEADER DTL Interpretation FINAL DIAGNOSIS Colon, Transverse, Lesion, biopsy ([id number]; 01/27/2024): Invasive adenocarcinoma with ulceration. The submitted DNA mismatch repair protein immunostains show loss expression of MLH1 and PMS2 (dMMR). Digital imaging was used in the diagnostic assessment of this case. 03/20/2024 3:15 PM CLINICAL PROJECT LEADER DTL Varies 01/27/2024 11:0 8 AM CLINICAL PROJECT LEADER 03/19/2024 1:45 PM CLINICAL PROJECT LEADER us Marbella Garcia M.D. LAB SURG PATH ORDERABLES Fi nal Result [facility] [address] [place] [address], [facility] DTL [address] [place] [address] documented in this encounter Visit Diagnoses Diagnosis Polyp Colon Malignant Neoplasm Of Colon (HCC) documented in this encounter
--- OUTSIDE RECORDS SUMMARY | 2024-04-05 14:46 | XMS_ITS | Encounter Summary ---
Author Organization [facility] Address [address] [place] [address] Care Team Providers Care Immunologist Name Role Phone Unavailable Primary Care Provider Unavailabl e Encounter Details Date Type Department Care Team (Late st Contact Info) Description 03/24/2024 Orders Only Division of Colon and Rectal Surgery in [place], [place] [address] [place] [address] Estuardo Amin P.A.-C. [address] [place] [address] Social History Tobacco Use Types Packs/Day Years Used Date Smoking Tobacco: Never Passive Smoke Exposure: Never Smokeless Tobacco: Never [facility] Utilities Answer Date Recorded In the [...] your living situation today? I have a [facility] place to live 11/27/2023 Comments Unknown [...] (Latest Contact Info) Description 04/09/2024 9:15 AM ADJUSTER AND INSPECTOR Telemedicine Department of Obstetrics and Gynecology, Division of Gynecologic Oncology in [place], [place] [address] [place] [address] Luis Johns M.D. [address] [place] [phone] 04/10/2024 7:25 AM ADJUSTER AND INSPECTOR Hospital Encounter RST ROEI 01 4 AM ADMIT [address] [place] [address] Marbella Garcia M.D. [address] [place] [phone] 04/10/2024 7:25 AM ADJUSTER AND INSPECTOR - 04/10/2024 1:16 PM ADJUSTER AND INSPECTOR Surgery RST RO MAIN OR [address] [place] [address] Marbella Garcia M.D. [address] [place] [phone] LAPAROSCOPIC COLECTOMY extended RIGHT WITH ANASTOMOSIS 05/01/2024 10:30 AM ADJUSTER AND INSPECTOR Office Visit Department of Medical Genetics in [place], [place] [address] [place] [address] Ary Robbins M.D. [address] [place] [phone] Rasheeda Reynolds M.S., [facility] [address] [place] [phone] Scheduled Procedures Name Priority Associated Diagnoses Date/Ti me LAPAROSCOPIC COLECTOMY RIGHT WITH ANASTOMOSIS Malignant Neoplasm Of Colon (HCC) 04/10/2024 7:25 AM ADJUSTER AND INSPECTOR LAPAROSCOPIC SALPINGO-OOPHORECTOMY Malignant Neoplasm Of Colon (HCC) 04/10/2024 7:25 AM ADJUSTER AND INSPECTOR TRACHELECTOMY VAGINA Malignant Neoplasm Of Colon (HCC) 04/10/2024 7:25 AM ADJUSTER AND INSPECTOR documented as of this encounter Visit Diagnoses Not on filedocumented in this encounter
--- OUTSIDE RECORDS SUMMARY | 2024-04-05 14:46 | XMS_ITS | Encounter Summary ---
Author Organization [facility] Address [address] [place] [address] Care Team Providers Care Juvenile Court Judge Name Role Phone Unavailable Primary Care Provider Unavailabl e Encounter Details Date Type Department Care Team (Late st Contact Info) Description 03/19/2024 Orders Only Division of Colon and Rectal Surgery in [place], [place] [address] [place] [address] Estuardo Amin P.A.-C. [address] [place] [address] Malignant Neoplasm Of Colon (HCC) (Primary Dx) Social History Tobacco Use Types Packs/Day Years Used Date Smoking Tobacco: Never Passive Smoke Exposure: Never Smokeless Tobacco: Never [facility] Utilities Answer Date Recorded In the past 12 months has [facility] electric, gas, oil, or water company threatened [...] [facility] 11/27/2023 Comments [...] (Latest Contact Info) Description 04/09/2024 9:15 AM BOWLING BALL PATCHER Telemedicine Department of Obstetrics and Gynecology, Division of Gynecologic Oncology in [place], [place] [address] [place] [address] Luis Johns M.D. [address] [place] [address] 04/10/2024 7:25 AM BOWLING BALL PATCHER Hospital Encounter RST ROEI 01 4 AM ADMIT [address] [place] [address] Marbella Garcia M.D. [address] [place] [phone] 04/10/2024 7:25 AM BOWLING BALL PATCHER - 04/10/2024 1:16 PM BOWLING BALL PATCHER Surgery RST RO MAIN OR [address] [place] [address] Marbella Garcia M.D. [address] [place] [address] LAPAROSCOPIC COLECTOMY extended RIGHT WITH ANASTOMOSIS 05/01/2024 10:30 AM BOWLING BALL PATCHER Office Visit Department of Medical Genetics in [place], [place] [address] [place] [phone] Ary Robbins M.D. [address] [place] [phone] Rasheeda Reynolds M.S., [facility] [place] [address] [place] [phone] Scheduled Procedures Name Priority Associated Diagnoses Date/Ti me LAPAROSCOPIC COLECTOMY RIGHT WITH ANASTOMOSIS Malignant Neoplasm Of Colon (HCC) 04/10/2024 7:25 AM BOWLING BALL PATCHER LAPAROSCOPIC SALPINGO-OOPHORECTOMY Malignant Neoplasm Of Colon (HCC) 04/10/2024 7:25 AM BOWLING BALL PATCHER TRACHELECTOMY VAGINA Malignant Neoplasm Of Colon (HCC) 04/10/2024 7:25 AM BOWLING BALL PATCHER documented as of this encounter Visit Diagnoses Diagnosis Malignant Neoplasm Of Colon (HCC)- Primary Malignant Neoplasm Of Colon (HCC) documented in this encounter
--- OUTSIDE RECORDS SUMMARY | 2024-04-05 14:46 | XMS_ITS | Encounter Summary ---
Author Organization [facility] Address [address] [place] [address] Care Team Providers Care Ball Holder Name Role Phone Unavailable Primary Care Provider Unavailabl e Encounter Details Date Type Department Care Team (Late st Contact Info) Description 03/19/2024 Orders Only Division of Colon and Rectal Surgery in [place], [place] [address] [place] [address] Estuardo Amin P.A.-C. [address] [place] [address] Social History Tobacco Use Types Packs/Day Years Used Date Smoking Tobacco: Never Passive Smoke Exposure: Never Smokeless Tobacco: Never [facility] Utilities Answer Date Recorded In [...] your living situation today? I have a [facility] place to live 11/27/2023 Comments Unknown [...] (Latest Contact Info) Description 04/09/2024 9:15 AM LIBRARY SALES CONSULTANT Telemedicine Department of Obstetrics and Gynecology, Division of Gynecologic Oncology in [place], [place] [address] [place] [address] Luis Johns M.D. [address] [place] [phone] 04/10/2024 7:25 AM LIBRARY SALES CONSULTANT Hospital Encounter RST ROEI 01 4 AM ADMIT [address] [place] [address] Marbella Garcia M.D. [address] [place] [phone] 04/10/2024 7:25 AM LIBRARY SALES CONSULTANT - 04/10/2024 1:16 PM LIBRARY SALES CONSULTANT Surgery RST RO MAIN OR [address] [place] [address] Marbella Garcia M.D. [address] [place] [phone] LAPAROSCOPIC COLECTOMY extended RIGHT WITH ANASTOMOSIS 05/01/2024 10:30 AM LIBRARY SALES CONSULTANT Office Visit Department of Medical Genetics in [place], [place] [address] [place] [address] Ary Robbins M.D. [address] [place] [phone] Rasheeda Reynolds M.S., [facility] [address] [place] [phone] Scheduled Procedures Name Priority Associated Diagnoses Date/Ti me LAPAROSCOPIC COLECTOMY RIGHT WITH ANASTOMOSIS Malignant Neoplasm Of Colon (HCC) 04/10/2024 7:25 AM LIBRARY SALES CONSULTANT LAPAROSCOPIC SALPINGO-OOPHORECTOMY Malignant Neoplasm Of Colon (HCC) 04/10/2024 7:25 AM LIBRARY SALES CONSULTANT TRACHELECTOMY VAGINA Malignant Neoplasm Of Colon (HCC) 04/10/2024 7:25 AM LIBRARY SALES CONSULTANT documented as of this encounter Visit Diagnoses Not on filedocumented in this encounter
--- OUTSIDE RECORDS SUMMARY | 2024-04-05 14:46 | XMS_ITS | Encounter Summary ---
Author Organization [facility] Address [address] [place] [phone] Care Team Providers Care Rn Iv Therapy Name Role Phone Unavailable Primary Care Provider Unavailabl e Reason for Visit * Reason Comments Consult Malignant neoplasm o f colon * Outpatient (Routine) - Closed Specialty Diagnoses / Procedures Referred By Lowell cox Referred To Contact Colon and Rectal Surgery Diagnoses Malignant Neoplasm Of Colon (HCC) Estuardo Amin P.A.-C. [address] [place] [phone] Phone: tel: fax: [facility] Referral ID Status Reason Start Date Expiration Date Visits Re quested Visits Authorized [id number] Closed 03/16/2024 09/15/2025 1 1 Encounter Details Date Type Department Care Team (Latest Contact Info) Description 03/26/2024 2:00 PM INSPECTOR POISING Comprehensive Visit Division of Colon and Rectal Surgery in [place], [place] [address] [place] [phone] Marbella Garcia M.D. [address] [place] [phone] Anemia Iron Deficiency Blood Loss Chronic (Primary Dx); Malignant Neoplasm Of Colon (HCC) Social History Tobacco Use Types Packs/Day Years Used Date Smoking Tobacco: Never Passive Smoke Exposure: Never Smokeless Tobacco: Never [facility] Utilities Answer Date Recorded In the [...] your living situation today? I have a [facility] place to live 11/27/2023 Comments [...] (Latest Contact Info) Description 04/09/2024 9:15 AM INSPECTOR POISING Telemedicine Department of Obstetrics and Gynecology, Division of Gynecologic Oncology in [place], [place] 200 [place] [address] Luis Johns M.D. 200 [place] [address] 04/10/2024 7:25 AM INSPECTOR POISING Hospital Encounter [facility]ST [facility] 01 4 AM ADMIT [address] [place] [address] Marbella Garcia M.D. [address] [place] [phone] 04/10/2024 7:25 AM INSPECTOR POISING - 04/10/2024 1:16 PM INSPECTOR POISING Surgery [facility] MAIN OR [address] [place] [phone] Marbella Garcia M.D. [address] [place] [address] LAPAROSCOPIC COLECTOMY extended RIGHT WITH ANASTOMOSIS 05/01/2024 10:30 AM INSPECTOR POISING Office Visit Department of Medical Genetics in [place], [place] [address] [place] [phone] Ary Robbins M.D. [address] [place] [phone] Rasheeda Reynolds M.S., [facility] [address] [place] [phone] Scheduled Procedures Name Priority Associated Diagnoses Date/Ti me LAPAROSCOPIC COLECTOMY RIGHT WITH ANASTOMOSIS Malignant Neoplasm Of Colon (HCC) 04/10/2024 7:25 AM INSPECTOR POISING LAPAROSCOPIC SALPINGO-OOPHORECTOMY Malignant Neoplasm Of Colon (HCC) 04/10/2024 7:25 AM INSPECTOR POISING TRACHELECTOMY VAGINA Malignant Neoplasm Of Colon (HCC) 04/10/2024 7:25 AM INSPECTOR POISING documented as of this encounter Goals Goal Patient Goal Type Associated Problems Recent Progress Patient-Stated? Author [facility] Care Plan for Nicotine Dependency Perioperative Care Plan [facility] Care Plan for Nicotine Dependency Perioperative No Lupe Joshi R.N. Surgical Readiness and Recovery Care Plan Care Plan Surgical Readiness and Recovery Care Plan No Lupe Joshi R.N. documented as of this encounter Visit Diagnoses Diagnosis Anemia Iron Deficiency Blood Loss Chronic- Primary Malignant Neoplasm Of Colon (HCC) Malignant Neoplasm Of Colon (HCC)- Primary Malignant Neoplasm Of Colon (HCC) documented in this encounter Additional Health Concerns Active Problems Noted Date Diagnosed Date [facility] Care Plan for Nicotine Dependency Pe rioperative 03/26/2024 Surgical Readiness and Recovery Care Plan 2024 documented as of this encounter
--- OUTSIDE RECORDS SUMMARY | 2024-04-05 14:47 | XMS_ITS | Encounter Summary ---
Author Organization [facility] Address [address] [place] [phone] Care Team Providers Care Internet Site Designer Name Role Phone Unavailable Primary Care Provider Unavailabl e Reason for Referral * Outpatient (Routine) - Closed Specialty Diagnoses / Procedures Referred By Lowell cox Referred To Contact Diagnoses Malignant Neoplasm Of Colon (HCC) Procedures ECG 12 Lead Keith Amin P.A.-C. 200 [place] [address] Phone: tel: fax: [facility] Referral ID Status Reason Start Date Expiration Date Visits Re quested Visits Authorized [id number] Closed 03/19/2024 03/19/2025 1 1 ING MACHINE OPERATOR Reason for Visit * Reason Comments Consult Malignant Neoplasm O f Colon (HCC) * Appointment Request (Routine) - Closed Specialty Diagnoses / Procedures Referred By Contac t Referred To Contact Colon and Rectal Surgery Diagnoses Malignant Neoplasm Of Colon (HCC) Purvi Holden M.D. [address] [place] [address] Phone: tel: fax: Referral ID Status Reason Start Date Expiration Date Visits Re quested Visits Authorized [id number] Closed 03/13/2024 03/13/2025 1 1 Encounter Details Date Type Department Care Team (Latest Contact Info) Description 03/19/2024 8:00 AM BALLING MACHINE OPERATOR Comprehensive Visit Division of Colon and Rectal Surgery in [place], [place] [address] [place] [phone] Keith Amin P.A.-C. [address] [place] [phone] Malignant Neoplasm Of Colon (HCC) (Primary Dx) Social History Tobacco Use Types Packs/Day Years Used Date Smoking Tobacco: Never Passive Smoke Exposure: Never Smokeless Tobacco: Never [facility] Utilities Answer Date Recorded In the past 12 months has e [employer], gas, oil, or water [employer] threatened to shut off services in your [...] your living situation today? I have a [facility] place to live 11/27/2023 Comments Unknown [...] Comments Blood Pressure 139/81 03/19/2024 7:52 AM BALLING MACHINE OPERATOR Pulse 87 03/19/2024 7:52 AM BALLING MACHINE OPERATOR Temperature - - Respiratory Rate - - Oxygen Saturation - - Inhaled Oxygen Concentration - - Weight 106 kg (234 lb 5.6 oz) 03/19/2024 7:52 AM BALLING MACHINE OPERATOR Height 167.5 cm (5' 5.95) 03/19/2024 7:52 AM CS T Body Mass Index 37.89 03/19/2024 7:52 AM BALLING MACHINE OPERATOR documented in this encounter Consult Notes * Keith Amin P.A.-C. - 03/19/2024 8:00 AM CST SUBJECTIVE REASON FOR CONSULT Becca Roldan is a 58 y.o. female who presents for evaluation of Consult (Malignant Neoplasm Of Colon (HCC)). HISTORY OF PRESENT ILLNESS Ms. Roldan presents for evaluation of colon cancer. She has a past medical history of HTN, parkinson's, and RM. Past surgical history includes a partial hysterectomy in 04/2013 (states she still has a uterine stump, cervix, and ovaries). She states that her extended family has had much cancer including her mother who in her 50s from pancreatic cancer although also had many colon related surgeries (unsure of specifics). Ms. Roldan had a screening colonoscopy for a 3 year follow up on 01/27/2024. This showed a localizedarea of eroded linear pattern nodular mucosa in the transverse colon. This was tattooed. 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 BRAF mutation was detected. CTs showed adjacent lymphadenopathy but no distant metastatic concerns. PET scan showed indeterminate hypodense right adrenal nodule without significant uptake. Increased FDG activity with opacification of right ethmoidal and sphenoid sinuses and prominent tonsils - likely infectious/inflammatory. She was seen by ENT for the swollen tonsils and has found a sleep apnea machine to be helpful. She has some mild bloating but denies abnormal stools or bleeding. She has been experiencing urinary incontinence for 2 years and has been recommended surgical intervention. She was advised to have a combined surgical intervention including treatment of the colon cancer and the hysterectomy and possibly intervention of the bladder. Risk Factor Table Smoking: never Diabetes: No Weight loss: No Immunocompromised: No Prior abdominal/pelvis radiation: No Body mass index is 37.89 kg/m??. The following portions of the patient's history were reviewed and updated as appropriate: allergies, current medications, family history, medical history, social history, surgical history, and problem list. REVIEW OF SYSTEMS Constitutional: Positive for fatigue. - Negative for weight loss. Allergic/Immunologic: - Negative for immunocompromised state. PHYSICAL EXAM Constitutional Appearance: Normal appearance. Cardiovascular Rate and Rhythm: Normal rate and regular rhythm. Pulmonary Effort: Pulmonary effort is normal. Breath sounds: Normal breath sounds. Neurological Mental Status: She is alert. Psychiatric Mood and Affect: Mood normal. Behavior: Behavior normal. DIAGNOSTICS Labs: Recent Results (from the past 72 hours) CBC without Differential Collection Time: 03/19/24 7:43 AM Result Value Hemoglobin 8.7 (L) Hematocrit 30.6 (L) Erythrocytes 4.07 MCV 75.2 (L) RBC Distrib Width 18.5 (H) Platelet Count 551 (H) Leukocytes 11.1 (H) Comprehensive Metabolic Panel Collection Time: 03/19/24 7:43 AM Result Value Potassium, S 3.5 (L) Sodium, S 140 Chloride, S 95 (L) Bicarbonate, S 30 (H) Anion Gap 15 BUN (Blood Urea Nitrogen), S 13 Creatinine 0.55 (L) Estimated GFR (eGFR) >90 Calcium, Total, S 9.8 Glucose, S 129 Protein, Total, S 7.4 Albumin, S 4.1 Aspartate Aminotransferase (AST), S 15 Alkaline Phosphatase, S 78 Alanine Aminotransferase (ALT), S <7 (L) Bilirubin, Total, S 0.3 ECG: ECG 12 Lead Result Date: 03/19/2024 Normal sinus rhythm Minimal voltage criteria for LVH, may be normal variant Nonspecific ST abnormality No previous ECGs available Reviewed by CRISTIAN Mei IMAGING: Interpretation of Outside CT Abdomen and or Pelvis Result Date: 03/19/2024 Impression: Primary colonic neoplasm and transverse colon with small adjacent lymph nodes which mayrepresent local regional metastases. No findings for distant metastatic disease in the abdomen or pelvis. Interpretation of Outside CT Chest Result Date: 03/17/2024 Impression: Tiny indeterminate pulmonary nodules measure up to 3 mm. Interpretation of Outside NM PET Scan Result Date: 03/17/2024 Impression: 1. Intense FDG activity at the left transverse lesion consistent with biopsy-proven malignancy. 2. No evidence of FDG avid lymphadenopathy in the chest, abdomen and pelvis. 3. Indeterminate hypodense right adrenal nodule without significant FDG activity. 4. Increased FDG activity with opacification of the right ethmoidal and sphenoid sinuses as well as prominent tonsils most likely infectious/inflammatory in nature. FUNCTIONAL CAPACITY: 4-10 METS: walking, scrub floor, move furniture Caprini Score Breakdown 3 Total Score 1 Systemic Hormonal Contraception or Hormone Replacement 1 Age 1 BMI > 25 Anesthesia complications: no Anticoagulants: None Immunocompromised: not immunocompromised Independent in ADL: yes Surgical testing was reviewed with the patient. Reviewed ECG and laboratory assessment. Patient is optimized for planned surgical procedures based on current health status and informationavailable at this time. PHYSICAL EXAM Constitutional Appearance: Normal appearance. Cardiovascular Rate and Rhythm: Normal rate and regular rhythm. Pulmonary Effort: Pulmonary effort is normal. Breath sounds: Normal breath sounds. Neurological Mental Status: She is alert. Psychiatric Mood and Affect: Mood normal. Behavior: Behavior normal. ASSESSMENT / PLAN #1 Malignant Neoplasm Of Colon (HCC) It was a pleasure meeting with Ms. Roldan today. We discussed her diagnosis of colon cancer. She will be meeting with Dr. Garcia on 03/26 for recommendations on treatment. Genetic counseling will be completed on 05/01. Her hemoglobin is low which is likely contributing to her fatigue. We will recheck this next week when she returns. I recommended that she be seen urgently for repeat labs if she has significant fatigue, weakness, or experiences and new or worsening symptoms. Patient verbalized understanding and was agreeable to the plan of care. ING MACHINE OPERATOR ING MACHINE OPERATOR documented in this encounter Miscellaneous Notes * Addendum Note - Keith Amin P.A.-C. - 03/19/2024 8:00 AM CSTAddended by: KEITH AMIN on: 03/19/2024 03:23 PM Modules accepted: Orders ING MACHINE OPERATOR documented in this encounter Plan of Treatment Upcoming Encounters Date Type Department Care Team (Latest Contact Info) Description 04/09/2024 9:15 AM BALLING MACHINE OPERATOR Telemedicine Department of Obstetrics and Gynecology, Division of Gynecologic Oncology in [place], [place] [address] [place] [phone] Luis Johns M.D. [address] [place] [phone] 04/10/2024 7:25 AM BALLING MACHINE OPERATOR Hospital Encounter RST RO 01 4 AM ADMIT [address] [place] [phone] Marbella Garcia M.D. [address] [place] [phone] 04/10/2024 7:25 AM BALLING MACHINE OPERATOR - 04/10/2024 1:16 PM BALLING MACHINE OPERATOR Surgery RST RO MAIN OR [address] [place] [address] Marbella Garcia M.D. [address] [place] [phone] LAPAROSCOPIC COLECTOMY extended RIGHT WITH ANASTOMOSIS 05/01/2024 10:30 AM BALLING MACHINE OPERATOR Office Visit Department of Medical Genetics in [place], [place] [address] [place] [phone] Ary Robbins M.D. [address] [place] [address] Rasheeda Reynolds MRandeeS., [facility] [address] [place] [phone] Scheduled Procedures Name Priority Associated Diagnoses Date/Ti me LAPAROSCOPIC COLECTOMY RIGHT WITH ANASTOMOSIS Malignant Neoplasm Of Colon (HCC) 04/10/2024 7:25 AM BALLING MACHINE OPERATOR LAPAROSCOPIC SALPINGO-OOPHORECTOMY Malignant Neoplasm Of Colon (HCC) 04/10/2024 7:25 AM BALLING MACHINE OPERATOR TRACHELECTOMY VAGINA Malignant Neoplasm Of Colon (HCC) 04/10/2024 7:25 AM BALLING MACHINE OPERATOR documented as of this encounter Results * (ABNORMAL) CBC without Differential (03/26/2024 1:00 PM BALLING MACHINE OPERATOR) Hemoglobin 8.7(L) 11.6 - 15.0 g/dL 03/26/2024 1:36 PM BALLING MACHINE OPERATOR DTL Hematocrit 30.1(L) 35.5 - 44.9 % 03/26/2024 1:36 PM BALLING MACHINE OPERATOR DTL Erythrocytes 3.83(L) 3.92 - 5.13 x10(12)/L 03/26/2024 1:36 PM BALLING MACHINE OPERATOR DTL MCV 78.6 78.2 - 97.9 fL 03/26/2024 1:36 PM BALLING MACHINE OPERATOR DTL RBC Distrib Width 23.1(H) 12.2 - 16.1 % 03/26/2024 1:36 PM BALLING MACHINE OPERATOR DTL Platelet Count 442(H) 157 - 371 x10(9)/L 03/26/2024 1:36 PM BALLING MACHINE OPERATOR DTL Leukocytes 10.1(H) 3.4 - 9.6 x10(9)/L 03/26/2024 1:36 PM BALLING MACHINE OPERATOR DTL Blood (Blood, Venous) 03/26/2024 1:00 PM BALLING MACHINE OPERATOR 03/26/2024 1:22 PM BALLING MACHINE OPERATOR Keith Amin P.A.-C. LAB BLOOD ADD-ON Final Re sult [facility] [address] [place] [address], [facility] [address] [place] [address] * ECG 12 Lead (03/19/2024 9:05 AM BALLING MACHINE OPERATOR) Pathologist [facility] Ventricular Rate ECG/Min 76 BPM MUSE [place] Interval 182 ms MUSE QRSD Interval 94 ms MUSE QT Interval 402 ms MUSE QTC Interval 452 ms MUSE P [place] 8 degrees MUSE R [place] -1 degrees MUSE T Wave [place] 24 degrees MUSE 03/19/2024 9:05 AM BALLING MACHINE OPERATOR 03/19/2024 9:23 AM BALLING MACHINE OPERATOR Impressions MUSE - 03/19/2024 9:23 AM BALLING MACHINE OPERATOR Normal sinus rhythm Minimal voltage criteria for LVH, may be normal variant Nonspecific ST abnormality No previous ECGs available Reviewed by CRISTIAN Mei Narrative Procedure Note Rogelio Kurtz M.D., Ph.D. - 03/19/2024 IMPRESSION: Normal sinus rhythm Minimal voltage criteria for LVH, may be normal variant Nonspecific ST abnormality No previous ECGs available Reviewed by CRISTIAN Mei us Keith Amin P.A.-C. ECG ORDERABLES Final Res ult MUSE NA * Interpretation of Outside CT Abdomen and or Pelvis (03/17/2024 11:51 AM BALLING MACHINE OPERATOR) Anatomical Region Laterality Modality Abdomen, Pelvis, Abdominal R ST LOS, Abdominal ARZ LOS, Abdominal FLA LOS, Other N/A Computed Tomography Impressions 03/19/2024 7:30 AM BALLING MACHINE OPERATOR Primary colonic neoplasm and transverse colon with small adjacent lymph nodes which may represent local regional metastases. No findings for distant metastatic disease in the abdomen or pelvis. Narrative 03/19/2024 7:30 AM BALLING MACHINE OPERATOR EXAM: INTERPRETATION OF OUTSIDE CT ABDOMEN [...] metastatic disease in the abdomen or pelvis. Keith Amin P.A.-C. IMG CT PROCEDURES Final R esult * Interpretation of Outside CT Chest (03/17/2024 11:51 AM BALLING MACHINE OPERATOR) Anatomical Region Laterality Modality Chest, Thoracic RST LOS, Tho racic ARZ LOS, Thoracic FLA LOS, Other, Body N/A Computed Tomography Impressions 03/17/2024 12:34 PM BALLING MACHINE OPERATOR Tiny indeterminate pulmonary nodules measure up to 3 mm. Narrative 03/17/2024 12:34 PM BALLING MACHINE OPERATOR EXAM: INTERPRETATION OF OUTSIDE CT CHEST [...] pulmonary nodules measure up to 3 mm. Keith Amin P.A.-C. IMG CT PROCEDURES Final R esult documented in this encounter Visit Diagnoses Diagnosis Malignant Neoplasm Of Colon (HCC) Malignant Neoplasm Of Colon (HCC) Malignant Neoplasm Of Colon (HCC)- Primary Malignant Neoplasm Of Colon (HCC) documented in this encounter
--- OUTSIDE RECORDS SUMMARY | 2024-04-05 14:47 | XMS_ITS | Encounter Summary ---
Author Organization [facility] Address [address] [place] [address] Care Team Providers Care Chimney Builder Brick Name Role Phone Unavailable Primary Care Provider Unavailabl e Encounter Details Date Type Department Care Team (Latest Contact Info) Description 03/19/2024 7:16 AM HOME HEALTH CLINICAL LIAISON - 03/19/2024 11:59 PM HOME HEALTH CLINICAL LIAISON Hospital Encounter Department of Laboratory Medicine and Pathology, [facility], in [place], [place] [address] [place] [address] Estuardo Amin P.A.-C. [address] [place] [phone] Malignant Neoplasm Of Colon (HCC) Discharge Disposition: Home or Self Care Social History Tobacco Use Types Packs/Day Years Used Date Smoking Tobacco: Never Passive Smoke Exposure: Never Smokeless Tobacco: Never [facility] Utilities Answer Date Recorded In the past 12 months has [facility] [employer], gas, oil, or water [employer] threatened to shut off services in your [...] (Latest Contact Info) Description 04/09/2024 9:15 AM HOME HEALTH CLINICAL LIAISON Telemedicine Department of Obstetrics and Gynecology, Division of Gynecologic Oncology in [place], [place] [address] [place] [phone] Luis Johns M.D. [address] [place] [phone] 04/10/2024 7:25 AM HOME HEALTH CLINICAL LIAISON Hospital Encounter [facility] 01 4 AM ADMIT [address] [place] [address] Marbella Garcia M.D. [address] [place] [phone] 04/10/2024 7:25 AM HOME HEALTH CLINICAL LIAISON - 04/10/2024 1:16 PM HOME HEALTH CLINICAL LIAISON Surgery [facility] MAIN OR [address] [place] [address] Marbella Garcia M.D. [address] [place] [phone] LAPAROSCOPIC COLECTOMY extended RIGHT WITH ANASTOMOSIS 05/01/2024 10:30 AM HOME HEALTH CLINICAL LIAISON Office Visit Department of Medical Genetics in [place], [place] [address] [place] [address] Ary Robbins M.D. [address] [place] [address] Rasheeda Reynolds M.S., [facility] [address] [place] [address] Scheduled Orders Name Type Priority Associated Diagnoses Orde r Schedule CBC without Differential Lab Routine Malignant Neoplasm Of Colon (HCC) Once for 1 Occurrences starting 03/19/2024 until 03/19/2024 Scheduled Procedures Name Priority Associated Diagnoses Date/Ti me LAPAROSCOPIC COLECTOMY RIGHT WITH ANASTOMOSIS Malignant Neoplasm Of Colon (HCC) 04/10/2024 7:25 AM HOME HEALTH CLINICAL LIAISON LAPAROSCOPIC SALPINGO-OOPHORECTOMY Malignant Neoplasm Of Colon (HCC) 04/10/2024 7:25 AM HOME HEALTH CLINICAL LIAISON TRACHELECTOMY VAGINA Malignant Neoplasm Of Colon (HCC) 04/10/2024 7:25 AM HOME HEALTH CLINICAL LIAISON documented as of this encounter Procedures Procedure Name Priority Date/Time Associated Diagnosis Comments CBC WITHOUT DIFFERENTIAL, B Routine 03/19/2024 7:43 AM HOME HEALTH CLINICAL LIAISON Malignant Neoplasm Of Colon (HCC) CARCINOEMBRYONIC AG (CEA), S Routine 03/19/2024 7:43 AM HOME HEALTH CLINICAL LIAISON Malignant Neoplasm Of Colon (HCC) COMPREHENSIVE METABOLIC PANEL, S/P Routine 03/19/2024 7:43 AM HOME HEALTH CLINICAL LIAISON Malignant Neoplasm Of Colon (HCC) documented in this encounter Results * (ABNORMAL) Comprehensive Metabolic Panel (03/19/2024 7:43 AM HOME HEALTH CLINICAL LIAISON) Potassium, S 3.5(L) 3.6 - 5.2 mmol/L 03/19/2024 8:52 AM HOME HEALTH CLINICAL LIAISON DTL Sodium, S 140 135 - 145 mmol/L 03/19/2024 8:52 AM HOME HEALTH CLINICAL LIAISON DTL Chloride, S 95(L) 98 - 107 mmol/L 03/19/2024 8:52 AM HOME HEALTH CLINICAL LIAISON DTL Bicarbonate, S 30(H) 22 - 29 mmol/L 03/19/2024 8:52 AM HOME HEALTH CLINICAL LIAISON DTL Anion Gap 15 7 - 15 03/19/2024 8:52 AM HOME HEALTH CLINICAL LIAISON DTL BUN (Blood Urea Nitrogen), S 13 6 - 21 mg/dL 03/19/2024 8:52 AM HOME HEALTH CLINICAL LIAISON DTL Creatinine 0.55(L) 0.59 - 1.04 mg/dL 03/19/2024 8:52 AM HOME HEALTH CLINICAL LIAISON DTL Estimated GFR (eGFR) >90 >=60 mL/min/BS A 03/19/2024 8:52 AM HOME HEALTH CLINICAL LIAISON DTL Comment: Estimated GFR calculated using the 2020 CKD_EPI creatinine equation. Calcium, Total, S 9.8 8.6 - 10.0 mg/dL 03/19/2024 8:52 AM HOME HEALTH CLINICAL LIAISON DTL Glucose, S 129 70 - 140 mg/dL 03/19/2024 8:52 AM HOME HEALTH CLINICAL LIAISON DTL Protein, Total, S 7.4 6.3 - 7.9 g/dL 03/19/2024 8:52 AM HOME HEALTH CLINICAL LIAISON DTL Albumin, S 4.1 3.5 - 5.0 g/dL 03/19/2024 8:52 AM HOME HEALTH CLINICAL LIAISON DTL Aspartate Aminotransferase (AST), S 15 8 - 43 U/L 03/19/2024 8:52 AM HOME HEALTH CLINICAL LIAISON DTL Alkaline Phosphatase, S 78 35 - 104 U/L 03/19/2024 8:52 AM HOME HEALTH CLINICAL LIAISON DTL Alanine Aminotransferase (ALT), S <7(L) 7 - 45 U/L 03/19/2024 9:07 AM HOME HEALTH CLINICAL LIAISON DTL Bilirubin, Total, S 0.3 0.0 - 1.2 mg/dL 03/19/2024 8:52 AM HOME HEALTH CLINICAL LIAISON DTL Blood (Blood, Venous) 03/19/2024 7:43 AM HOME HEALTH CLINICAL LIAISON 03/19/2024 8:24 AM HOME HEALTH CLINICAL LIAISON Estuardo Amin P.A.-C. LAB BLOOD ADD-ON Final Re sult [facility] [address] [place] [address], [facility] [address] [place] [address] * (ABNORMAL) CBC without Differential (03/19/2024 7:43 AM HOME HEALTH CLINICAL LIAISON) Hemoglobin 8.7(L) 11.6 - 15.0 g/dL 03/19/2024 8:33 AM HOME HEALTH CLINICAL LIAISON DTL Hematocrit 30.6(L) 35.5 - 44.9 % 03/19/2024 8:33 AM HOME HEALTH CLINICAL LIAISON DTL Erythrocytes 4.07 3.92 - 5.13 x10(12)/L 03/19/2024 8:33 AM HOME HEALTH CLINICAL LIAISON DTL MCV 75.2(L) 78.2 - 97.9 fL 03/19/2024 8:33 AM HOME HEALTH CLINICAL LIAISON DTL RBC Distrib Width 18.5(H) 12.2 - 16.1 % 03/19/2024 8:33 AM HOME HEALTH CLINICAL LIAISON DTL Platelet Count 551(H) 157 - 371 x10(9)/L 03/19/2024 8:33 AM HOME HEALTH CLINICAL LIAISON DTL Leukocytes 11.1(H) 3.4 - 9.6 x10(9)/L 03/19/2024 8:33 AM HOME HEALTH CLINICAL LIAISON DTL Blood (Blood, Venous) 03/19/2024 7:43 AM HOME HEALTH CLINICAL LIAISON 03/19/2024 8:12 AM HOME HEALTH CLINICAL LIAISON Estuardo Amin P.A.-C. LAB BLOOD ADD-ON Final Re sult [facility] [address] [place] [address], [facility] 200 [place] [address] * (ABNORMAL) CEA (Carcinoembryonic Antigen) (03/19/2024 7:43 AM HOME HEALTH CLINICAL LIAISON) Carcinoembryonic Ag (CEA), S 3.3(H) ng/mL 03/19/2024 3:44 PM HOME HEALTH CLINICAL LIAISON [facility] Comment: ----REFERENCE VALUE---- <=3.0 (Non-smokers) Some smokers may have elevated CEA, usually <5.0. ----ADDITIONAL INFORMATION---- The testing method is an immunoenzymatic assay manufactured by [employer] and performed on the [employer] DxI 800. Values obtained with different assay methods or kits may be different and cannot be used interchangeably. Test results cannot be interpreted as absolute evidence for the presence or absence of malignant disease. Blood (Blood, Venous) 03/19/2024 7:43 AM HOME HEALTH CLINICAL LIAISON 03/19/2024 2:42 PM HOME HEALTH CLINICAL LIAISON us Estuardo Amin P.A.-C. LAB BLOOD ADD-ON Final Re sult [facility] [address] [place] [address] [facility] [address] [place] [address] documented in this encounter Visit Diagnoses Diagnosis Malignant Neoplasm Of Colon (HCC) Malignant Neoplasm Of Colon (HCC) documented in this encounter
--- OUTSIDE RECORDS SUMMARY | 2024-04-05 14:47 | XMS_ITS | Encounter Summary ---
Author Organization [facility] Address [address] [place] [address] Care Team Providers Care Conciliator Name Role Phone Unavailable Primary Care Provider Unavailabl e Encounter Details Date Type Department Care Team (Latest Contact Info) Description 03/17/2024 11:55 AM HAT PRESSER Ancillary Procedure Department of Radiology in [place], [place] [address] [place] [address] Estuardo Amin P.A.-C. [address] [place] [address] Malignant Neoplasm Of Colon (HCC) Social History Tobacco Use Types Packs/Day Years Used Date Smoking Tobacco: Never Passive Smoke Exposure: Never Smokeless Tobacco: Never [facility] Utilities Answer Date Recorded In [...] your living situation today? I have a [facility] place to live 11/27/2023 Comments [...] (Latest Contact Info) Description 04/09/2024 9:15 AM HAT PRESSER Telemedicine Department of Obstetrics and Gynecology, Division of Gynecologic Oncology in [place], [place] [address] [place] [address] Luis Johns M.D. [address] [place] [phone] 04/10/2024 7:25 AM HAT PRESSER Hospital Encounter [facility] 01 4 AM ADMIT [address] [place] [address] Marbella Garcia M.D. [address] [place] [phone] 04/10/2024 7:25 AM HAT PRESSER - 04/10/2024 1:16 PM HAT PRESSER Surgery [facility]ST RO MAIN OR [address] [place] [address] Marbella Garcia M.D. [address] [place] [address] LAPAROSCOPIC COLECTOMY extended RIGHT WITH ANASTOMOSIS 05/01/2024 10:30 AM HAT PRESSER Office Visit Department of Medical Genetics in [place], [place] [address] [place] [address] Ary Robbins M.D. [address] [place] [phone] Rasheeda Reynolds M.S., [facility] [address] [place] [address] Scheduled Procedures Name Priority Associated Diagnoses Date/Ti me LAPAROSCOPIC COLECTOMY RIGHT WITH ANASTOMOSIS Malignant Neoplasm Of Colon (HCC) 04/10/2024 7:25 AM HAT PRESSER LAPAROSCOPIC SALPINGO-OOPHORECTOMY Malignant Neoplasm Of Colon (HCC) 04/10/2024 7:25 AM HAT PRESSER TRACHELECTOMY VAGINA Malignant Neoplasm Of Colon (HCC) 04/10/2024 7:25 AM HAT PRESSER documented as of this encounter Procedures Procedure Name Priority Date/Time Associated Diagnosis Comments INTERPRETATION OF OUTSIDE CT CHEST RAD - Routine (most inpatients and all outpatients) 03/17/2024 11:51 AM HAT PRESSER Malignant Neoplasm Of Colon (HCC) documented in this encounter Results * Interpretation of Outside CT Chest (03/17/2024 11:51 AM HAT PRESSER) Anatomical Region Laterality Modality Chest, Thoracic RST LOS, Tho racic ARZ LOS, Thoracic FLA LOS, Other, Body N/A Computed Tomography Impressions 03/17/2024 12:34 PM HAT PRESSER Tiny indeterminate pulmonary nodules measure up to 3 mm. Narrative 03/17/2024 12:34 PM HAT PRESSER EXAM: INTERPRETATION OF OUTSIDE CT CHEST with [...]
--- OUTSIDE RECORDS SUMMARY | 2024-04-05 14:47 | XMS_ITS | Encounter Summary ---
Author Organization [facility] Address [address] [place] [address] Care Team Providers Care Quality Assurance Practice Manager Name Role Phone Unavailable Primary Care Provider Unavailabl e Encounter Details Date Type Department Care Team ([facility] st Contact Info) Description 03/17/2024 Orders Only Division of Colon and Rectal Surgery in [place], [place] [address] [place] [phone] Marbella Garcia M.D. [address] [place] [phone] Polyp Colon (Primary Dx) Social History Tobacco Use Types Packs/Day Years Used Date Smoking Tobacco: Never Passive Smoke Exposure: Never Smokeless Tobacco: Never [facility] Utilities Answer Date Recorded In the past 12 months has th e electric, gas, oil, or water [employer] threatened to shut off services in your [...] your living situation today? I have a [facility] place to live 11/27/2023 Comments Unknown [...] (Latest Contact Info) Description 04/09/2024 9:15 AM PSYCHOLOGICAL SCIENCE PROFESSOR Telemedicine Department of Obstetrics and Gynecology, Division of Gynecologic Oncology in [place], [place] [address] [place] [address] Luis Johns M.D. [address] [place] [phone] 04/10/2024 7:25 AM PSYCHOLOGICAL SCIENCE PROFESSOR Hospital Encounter [facility] 01 4 AM ADMIT [address] [place] [address] Marbella Garcia M.D. [address] [place] [phone] 04/10/2024 7:25 AM PSYCHOLOGICAL SCIENCE PROFESSOR - 04/10/2024 1:16 PM PSYCHOLOGICAL SCIENCE PROFESSOR Surgery RST RO MAIN OR [address] [place] [address] Marbella Garcia M.D. [address] [place] [address] LAPAROSCOPIC COLECTOMY extended RIGHT WITH ANASTOMOSIS 05/01/2024 10:30 AM PSYCHOLOGICAL SCIENCE PROFESSOR Office Visit Department of Medical Genetics in [place], [place] [address] [place] [address] Ayr Robbins M.D. [address] [place] [phone] Rasheeda Reynolds M.S., [facility] [address] [place] [address] Scheduled Procedures Name Priority Associated Diagnoses Date/Ti me LAPAROSCOPIC COLECTOMY RIGHT WITH ANASTOMOSIS Malignant Neoplasm Of Colon (HCC) 04/10/2024 7:25 AM PSYCHOLOGICAL SCIENCE PROFESSOR LAPAROSCOPIC SALPINGO-OOPHORECTOMY Malignant Neoplasm Of Colon (HCC) 04/10/2024 7:25 AM PSYCHOLOGICAL SCIENCE PROFESSOR TRACHELECTOMY VAGINA Malignant Neoplasm Of Colon (HCC) 04/10/2024 7:25 AM PSYCHOLOGICAL SCIENCE PROFESSOR documented as of this encounter Results * Pathology Review of Outside Material (01/27/2024 11:08 AM PSYCHOLOGICAL SCIENCE PROFESSOR) 03/20/2024 3:15 PM PSYCHOLOGICAL SCIENCE PROFESSOR DTL Report electronically signed by Terrell Warner M.D., Ph.D. I verify that I have examined all relevant slides/materials for the specimen(s) and rendered or confirmed the diagnosis. 03/20/2024 3:15 PM PSYCHOLOGICAL SCIENCE PROFESSOR DTL Material Received A. [id number]: Transverse colon 11 stained slides 03/20/2024 3:15 PM PSYCHOLOGICAL SCIENCE PROFESSOR DTL Interpretation FINAL DIAGNOSIS Colon, Transverse, Lesion, biopsy ([id number]; 01/27/2024): Invasive adenocarcinoma with ulceration. The submitted DNA mismatch repair protein immunostains show loss expression of MLH1 and PMS2 (dMMR). Digital imaging was used in the diagnostic assessment of this case. 03/20/2024 3:15 PM PSYCHOLOGICAL SCIENCE PROFESSOR DTL Varies 01/27/2024 11:0 8 AM PSYCHOLOGICAL SCIENCE PROFESSOR 03/19/2024 1:45 PM PSYCHOLOGICAL SCIENCE PROFESSOR us Marbella Garcia M.D. LAB SURG PATH ORDERABLES Fi nal Result Performing Organization Address City/State/[facility] Co de Phone Number [facility] [address] [place] [address], [facility] 200 [facility] [address] [place] [address] documented in this encounter Visit Diagnoses Diagnosis Polyp Colon- Primary Malignant Neoplasm Of Colon (HCC)- Primary Malignant Neoplasm Of Colon (HCC) documented in this encounter
--- OUTSIDE RECORDS SUMMARY | 2024-04-05 14:47 | XMS_ITS | Encounter Summary ---
Author Organization [facility] Address [address] [place] [address] Care Team Providers Care Electric Hoist Operator Name Role Phone Unavailable Primary Care Provider Unavailabl e Reason for Visit * Reason Onset Date Comments Outside pathology orders 03/19/2024 Encounter Details Date Type Department Care Team (Latest Contact Info) Description 03/19/2024 Clinical Communication Division of Colon and Rectal Surgery in [place], [place] [address] [place] [phone] Marbella Garcia M.D. [address] [place] [phone] Outside pathology orders Social History Tobacco Use Types Packs/Day Years Used Date Smoking Tobacco: Never Passive Smoke Exposure: Never Smokeless Tobacco: Never [facility] Utilities Answer Date Recorded In the past 12 months has [facility] electric, gas, oil, or water company [...] (Latest Contact Info) Description 04/09/2024 9:15 AM RESIDENTIAL SUPPORT SPECIALIST Telemedicine Department of Obstetrics and Gynecology, Division of Gynecologic Oncology in [place], [place] [address] [place] [address] Luis Johns M.D. [address] [place] [address] 04/10/2024 7:25 AM RESIDENTIAL SUPPORT SPECIALIST Hospital Encounter [facility] 01 4 AM ADMIT [address] [place] [address] Marbella Garcia M.D. [address] [place] [address] 04/10/2024 7:25 AM RESIDENTIAL SUPPORT SPECIALIST - 04/10/2024 1:16 PM RESIDENTIAL SUPPORT SPECIALIST Surgery RST RO MAIN OR [address] [place] [address] Marbella Garcia M.D. [address] [place] [phone] LAPAROSCOPIC COLECTOMY extended RIGHT WITH ANASTOMOSIS 05/01/2024 10:30 AM RESIDENTIAL SUPPORT SPECIALIST Office Visit Department of Medical Genetics in [place], [place] [address] [place] [phone] Ary Robbins M.D. [address] [place] [phone] Rasheeda Reynolds M.S., [facility] [address] [place] [phone] Scheduled Procedures Name Priority Associated Diagnoses Date/Ti me LAPAROSCOPIC COLECTOMY RIGHT WITH ANASTOMOSIS Malignant Neoplasm Of Colon (HCC) 04/10/2024 7:25 AM RESIDENTIAL SUPPORT SPECIALIST LAPAROSCOPIC SALPINGO-OOPHORECTOMY Malignant Neoplasm Of Colon (HCC) 04/10/2024 7:25 AM RESIDENTIAL SUPPORT SPECIALIST TRACHELECTOMY VAGINA Malignant Neoplasm Of Colon (HCC) 04/10/2024 7:25 AM RESIDENTIAL SUPPORT SPECIALIST documented as of this encounter Visit Diagnoses Not on filedocumented in this encounter
--- OUTSIDE RECORDS SUMMARY | 2024-04-05 14:48 | XMS_ITS | Encounter Summary ---
Author Organization [facility] Address [address] [place] [address] Care Team Providers Care Stone Carriage Operator Name Role Phone Unavailable Primary Care Provider Unavailabl e Encounter Details Date Type Department Care Team (Late st Contact Info) Description 03/16/2024 Orders Only Division of Colon and Rectal Surgery in [place], [place] [address] [place] [phone] Galen Verma P.A.-C., M.S. [address] [place] [phone] Social History Tobacco Use Types Packs/Day Years Used Date Smoking Tobacco: Never Passive Smoke Exposure: Never Smokeless Tobacco: Never [facility] Utilities Answer Date Recorded In [...] your living situation today? I have a [facility] place to live 11/27/2023 Comments Unknown [...] (Latest Contact Info) Description 04/09/2024 9:15 AM SHORT STORY WRITER Telemedicine Department of Obstetrics and Gynecology, Division of Gynecologic Oncology in [place], [place] [address] [place] [address] Luis Johns M.D. [address] [place] [phone] 04/10/2024 7:25 AM SHORT STORY WRITER Hospital Encounter [facility] 4 AM ADMIT [address] [place] [address] Marbella Garcia M.D. [address] [place] [phone] 04/10/2024 7:25 AM SHORT STORY WRITER - 04/10/2024 1:16 PM SHORT STORY WRITER Surgery RST RO MAIN OR [address] [place] [address] Marbella Garcia M.D. [address] [place] [address] LAPAROSCOPIC COLECTOMY extended RIGHT WITH ANASTOMOSIS 05/01/2024 10:30 AM SHORT STORY WRITER Office Visit Department of Medical Genetics in [place], [place] [address] [place] [phone] Ary Robbins M.D. [address] [place] [phone] Rasheeda Reynolds M.S., [facility] [address] [place] [phone] Scheduled Procedures Name Priority Associated Diagnoses Date/Ti me LAPAROSCOPIC COLECTOMY RIGHT WITH ANASTOMOSIS Malignant Neoplasm Of Colon (HCC) 04/10/2024 7:25 AM SHORT STORY WRITER LAPAROSCOPIC SALPINGO-OOPHORECTOMY Malignant Neoplasm Of Colon (HCC) 04/10/2024 7:25 AM SHORT STORY WRITER TRACHELECTOMY VAGINA Malignant Neoplasm Of Colon (HCC) 04/10/2024 7:25 AM SHORT STORY WRITER documented as of this encounter Visit Diagnoses Not on filedocumented in this encounter
--- OUTSIDE RECORDS SUMMARY | 2024-04-05 14:48 | XMS_ITS | Encounter Summary ---
Author Organization [facility] Address [address] [place] [address] Care Team Providers Care Inspector Line Name Role Phone Unavailable Primary Care Provider Unavailabl e Reason for Referral * Outpatient (Routine) - Authorized Specialty Diagnoses / Procedures Referred By Contac t Referred To Contact Clinical Genomics Diagnoses Genetic Susceptibility To Other Malignant Neoplasm Ary Robbins M.D. [address] [place] [address] Phone: tel: fax: [facility] Referral ID Status Reason Start Date Expiration Date V isits Requested Visits Authorized [id number] Authorized 02/14/2024 08/15/2025 1 1 E MACHINE TENDER Encounter Details Date Type Department Care Team (Latest Contact Info) Description 02/14/2024 [facility] [address] [place] [address] Ary Robbins M.D. 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 I have a [facility] place to live 11/27/2023 Comments Unknown [...] (Latest Contact Info) Description 04/09/2024 9:15 AM SLIDE MACHINE TENDER Telemedicine Department of Obstetrics and Gynecology, Division of Gynecologic Oncology in [place], [place] 200 [place] [address] Luis Johns M.D. 200 [place] [address] 04/10/2024 7:25 AM SLIDE MACHINE TENDER Hospital Encounter [facility] 4 AM ADMIT [address] [place] [address] Marbella Garcia M.D. [address] [place] [address] 04/10/2024 7:25 AM SLIDE MACHINE TENDER - 04/10/2024 1:16 PM SLIDE MACHINE TENDER Surgery RST RO MAIN OR [address] [place] [address] Marbella Garcia M.D. [address] [place] [address] LAPAROSCOPIC COLECTOMY extended RIGHT WITH ANASTOMOSIS 05/01/2024 10:30 AM SLIDE MACHINE TENDER Office Visit Department of Medical Genetics in [place], [place] [address] [place] [address] Ary Robbins M.D. [address] [place] [phone] Rasheeda Reynolds M.S., [facility] [address] [place] [address] Scheduled Procedures Name Priority Associated Diagnoses Date/Ti me LAPAROSCOPIC COLECTOMY RIGHT WITH ANASTOMOSIS Malignant Neoplasm Of Colon (HCC) 04/10/2024 7:25 AM SLIDE MACHINE TENDER LAPAROSCOPIC SALPINGO-OOPHORECTOMY Malignant Neoplasm Of Colon (HCC) 04/10/2024 7:25 AM SLIDE MACHINE TENDER TRACHELECTOMY VAGINA Malignant Neoplasm Of Colon (HCC) 04/10/2024 7:25 AM SLIDE MACHINE TENDER Scheduled Referrals Name Type Priority Associated Diagnoses Orde r Schedule Medical Genetics Referral Outpatient Referral Routine Genetic Susceptibility To Other Malignant Neoplasm Expected: 02/14/2024 (Approximate), Expires: 05/15/2025 documented as of this encounter Visit Diagnoses Diagnosis Genetic Susceptibility To Other Malignant Neoplasm- Primary Malignant Neoplasm Of Colon (HCC) documented in this encounter
--- OUTSIDE RECORDS SUMMARY | 2024-04-05 14:48 | XMS_ITS | Encounter Summary ---
Author Organization [facility] Address [address] [place] [address] Care Team Providers Care Yeast Stacker Name Role Phone Unavailable Primary Care Provider Unavailabl e Encounter Details Date Type Department Care Team (Latest Contact Info) Description 03/16/2024 1:40 PM STOPPING BUILDER Ancillary Procedure Department of Radiology in [place], [place] [address] [place] [address] Estuardo Amin P.A.-C. [address] [place] [address] Malignant Neoplasm Of Colon (HCC) Social History Tobacco Use Types Packs/Day Years Used Date Smoking Tobacco: Never Passive Smoke Exposure: Never Smokeless Tobacco: Never [facility] Utilities Answer Date Recorded In [...] your living situation today? I have a [facility] place to live 11/27/2023 Comments Unknown [...] (Latest Contact Info) Description 04/09/2024 9:15 AM STOPPING BUILDER Telemedicine Department of Obstetrics and Gynecology, Division of Gynecologic Oncology in [place], [place] [address] [place] [address] Luis Johns M.D. [address] [place] [phone] 04/10/2024 7:25 AM STOPPING BUILDER Hospital Encounter RST RO[facility]I 01 4 AM ADMIT [address] [place] [address] Marbella Garcia M.D. [address] [place] [phone] 04/10/2024 7:25 AM STOPPING BUILDER - 04/10/2024 1:16 PM STOPPING BUILDER Surgery RST RO MAIN OR [address] [place] [address] Marbella Garcia M.D. [address] [place] [address] LAPAROSCOPIC COLECTOMY extended RIGHT WITH ANASTOMOSIS 05/01/2024 10:30 AM STOPPING BUILDER Office Visit Department of Medical Genetics in [place], [place] [address] [place] [address] Ary Robbins M.D. [address] [place] [phone] Rasheeda Reynolds M.S., [facility] [address] [place] [address] Scheduled Procedures Name Priority Associated Diagnoses Date/Ti me LAPAROSCOPIC COLECTOMY RIGHT WITH ANASTOMOSIS Malignant Neoplasm Of Colon (HCC) 04/10/2024 7:25 AM STOPPING BUILDER LAPAROSCOPIC SALPINGO-OOPHORECTOMY Malignant Neoplasm Of Colon (HCC) 04/10/2024 7:25 AM STOPPING BUILDER TRACHELECTOMY VAGINA Malignant Neoplasm Of Colon (HCC) 04/10/2024 7:25 AM STOPPING BUILDER documented as of this encounter Procedures Procedure Name Priority Date/Time Associated Diagnosis Comments INTERPRETATION OF OUTSIDE NM PET SCAN RAD - Routine (most inpatients and all outpatients) 03/16/2024 1:46 PM STOPPING BUILDER Malignant Neoplasm Of Colon (HCC) documented in this encounter Results * Interpretation of Outside NM PET Scan (03/16/2024 1:46 PM STOPPING BUILDER) Anatomical Region Laterality Modality Nuclear Medicine PET RST LOS , Nuclear Medicine ARZ LOS, Nuclear Medicine FLA LOS, Nuclear Medicine, Other, Neuroradiology ARZ LOS, Neuroradiology FLA LOS, Neuroradiology RST LOS, Body N/A Nuclear Medicine Impressions 03/17/2024 9:32 AM STOPPING BUILDER 1. Intense FDG activity at the left transverse lesion consistent with biopsy-proven malignancy. 2. No evidence of FDG avid lymphadenopathy in the chest, abdomen and pelvis. 3. Indeterminate hypodense right adrenal nodule without significant FDG activity. 4. Increased FDG activity with opacification of the right ethmoidal and sphenoid sinuses as well as prominent tonsils most likely infectious/inflammatory in nature. Narrative 03/17/2024 9:32 AM STOPPING BUILDER EXAM: INTERPRETATION OF OUTSIDE NM PET SCAN [...] the spine with mild anterior wedging of [id number] body. IMPRESSION: 1. Intense FDG activity at the left transverse lesion consistent withbiopsy- proven malignancy. 2. No evidence of FDG avid lymphadenopathy in the chest, abdomen andpelvis. 3. Indeterminate hypodense right adrenal nodule without significant FDGactivity. 4. Increased FDG activity with opacification of the right ethmoidal andsphenoid sinuses as well as prominent tonsils most likelyinfectious/inflammatory in nature. Estuardo Amin P.A.-C. IMG NM PROCEDURES Final R esult documented in this encounter Visit Diagnoses Diagnosis Malignant Neoplasm Of Colon (HCC) Malignant Neoplasm Of Colon (HCC) documented in this encounter
--- OUTSIDE RECORDS SUMMARY | 2024-04-05 14:48 | XMS_ITS | Encounter Summary ---
Author Organization [facility] Address [address] [place] [address] Care Team Providers Care Electric Meter Installer Name Role Phone Unavailable Primary Care Provider Unavailabl e Encounter Details Date Type Department Care Team (Latest Contact Info) Description 03/17/2024 11:50 AM SHIFT COORDINATOR Ancillary Procedure Department of Radiology in [place], [place] [address] [place] [address] Estuardo Amin P.A.-C. [address] [place] [address] Malignant Neoplasm Of Colon (HCC) Social History Tobacco Use Types Packs/Day Years Used Date Smoking Tobacco: Never Passive Smoke Exposure: Never Smokeless Tobacco: Never [facility] Utilities Answer Date Recorded In [...] your living situation today? I have a [facility] place to live 11/27/2023 Comments Unknown [...] (Latest Contact Info) Description 04/09/2024 9:15 AM SHIFT COORDINATOR Telemedicine Department of Obstetrics and Gynecology, Division of Gynecologic Oncology in [place], [place] [address] [place] [address] Luis Johns M.D. [address] [place] [phone] 04/10/2024 7:25 AM SHIFT COORDINATOR Hospital Encounter RST ROEI 01 4 AM ADMIT [address] [place] [address] Marbella Garcia M.D. [address] [place] [phone] 04/10/2024 7:25 AM SHIFT COORDINATOR - 04/10/2024 1:16 PM SHIFT COORDINATOR Surgery RST RO MAIN OR [address] [place] [address] Marbella Garcia M.D. [address] [place] [address] LAPAROSCOPIC COLECTOMY extended RIGHT WITH ANASTOMOSIS 05/01/2024 10:30 AM SHIFT COORDINATOR Office Visit Department of Medical Genetics in [place], [place] [address] [place] [phone] Ary Robbins M.D. [address] [place] [phone] Rasheeda Reynolds M.S., [facility] [address] [place] [address] Scheduled Procedures Name Priority Associated Diagnoses Date/Ti me LAPAROSCOPIC COLECTOMY RIGHT WITH ANASTOMOSIS Malignant Neoplasm Of Colon (HCC) 04/10/2024 7:25 AM SHIFT COORDINATOR LAPAROSCOPIC SALPINGO-OOPHORECTOMY Malignant Neoplasm Of Colon (HCC) 04/10/2024 7:25 AM SHIFT COORDINATOR TRACHELECTOMY VAGINA Malignant Neoplasm Of Colon (HCC) 04/10/2024 7:25 AM SHIFT COORDINATOR documented as of this encounter Procedures Procedure Name Priority Date/Time Associated Diagnosis Comments INTERPRETATION OF OUTSIDE CT ABDOMEN AND OR PELVIS RAD - Routine (most inpatients and all outpatients) 03/17/2024 11:51 AM SHIFT COORDINATOR Malignant Neoplasm Of Colon (HCC) documented in this encounter Results * Interpretation of Outside CT Abdomen and or Pelvis (03/17/2024 11:51 AM SHIFT COORDINATOR) Anatomical Region Laterality Modality Abdomen, Pelvis, Abdominal R ST LOS, Abdominal ARZ LOS, Abdominal FLA LOS, Other N/A Computed Tomography Impressions 03/19/2024 7:30 AM SHIFT COORDINATOR Primary colonic neoplasm and transverse colon with small adjacent lymph nodes which may represent local regional metastases. No findings for distant metastatic disease in the abdomen or pelvis. Narrative 03/19/2024 7:30 AM SHIFT COORDINATOR EXAM: INTERPRETATION OF OUTSIDE CT ABDOMEN AND [...] disease in the abdomen or pelvis. Estuardo TREADWELL CT PROCEDURES Final R esult documented in this encounter Visit Diagnoses Diagnosis Malignant Neoplasm Of Colon (HCC) Malignant Neoplasm Of Colon (HCC) documented in this encounter
--- OUTSIDE RECORDS SUMMARY | 2024-04-05 14:48 | XMS_ITS | Encounter Summary ---
Author Organization [facility] Address [address] [place] [address] Care Team Providers Care Kiln Car Unloader Name Role Phone Unavailable Primary Care Provider Unavailabl e Encounter Details Date Type Department Care Team (Late st Contact Info) Description 03/13/2024 Clinical Communication Division of Colon and Rectal Surgery in [place], [place] [address] [place] [address] Prescheduling, Provider Social History Tobacco Use Types Packs/Day Years Used Date Smoking Tobacco: Never Passive Smoke Exposure: Never Smokeless Tobacco: Never [facility] Utilities Answer Date Recorded In [...] living situation today? I have a [facility] place to live 11/27/2023 Comments Unknown [...] (Latest Contact Info) Description 04/09/2024 9:15 AM PROCESS IMPROVEMENT SPECIALIST Telemedicine Department of Obstetrics and Gynecology, Division of Gynecologic Oncology in [place], [place] [address] [place] [address] Luis Johns M.D. [address] [place] [phone] 04/10/2024 7:25 AM PROCESS IMPROVEMENT SPECIALIST Hospital Encounter RST [facility] 01 4 AM ADMIT [address] [place] [address] Marbella Garcia M.D. [address] [place] [phone] 04/10/2024 7:25 AM PROCESS IMPROVEMENT SPECIALIST - 04/10/2024 1:16 PM PROCESS IMPROVEMENT SPECIALIST Surgery RST RO MAIN OR [address] [place] [address] Marbella Garcia M.D. [address] [place] [address] LAPAROSCOPIC COLECTOMY extended RIGHT WITH ANASTOMOSIS 05/01/2024 10:30 AM PROCESS IMPROVEMENT SPECIALIST Office Visit Department of Medical Genetics in [place], [place] [address] [place] [address] Ary Robbins M.D. [address] [place] [phone] Rasheeda Reynolds M.S., [facility] [address] [place] [phone] Scheduled Procedures Name Priority Associated Diagnoses Date/Ti me LAPAROSCOPIC COLECTOMY RIGHT WITH ANASTOMOSIS Malignant Neoplasm Of Colon (HCC) 04/10/2024 7:25 AM PROCESS IMPROVEMENT SPECIALIST LAPAROSCOPIC SALPINGO-OOPHORECTOMY Malignant Neoplasm Of Colon (HCC) 04/10/2024 7:25 AM PROCESS IMPROVEMENT SPECIALIST TRACHELECTOMY VAGINA Malignant Neoplasm Of Colon (HCC) 04/10/2024 7:25 AM PROCESS IMPROVEMENT SPECIALIST documented as of this encounter Visit Diagnoses Not on filedocumented in this encounter
--- OUTSIDE RECORDS SUMMARY | 2024-04-05 14:48 | XMS_ITS | Encounter Summary ---
Author Organization [facility] Address [address] [place] [phone] Care Team Providers Care Neurobiologist Name Role Phone Unavailable Primary Care Provider Unavailabl e Reason for Referral * Outpatient (Routine) - Closed Specialty Diagnoses / Procedures Referred By Lowell t Referred To Contact Colon and Rectal Surgery Diagnoses Malignant Neoplasm Of Colon (HCC) Estuardo Amin P.A.-C. [address] [place] [phone] Phone: tel: fax: [facility] Referral ID Status Reason Start Date Expiration Date Visits Re quested Visits Authorized [id number] Closed 03/16/2024 09/15/2025 1 1 SURE VESSEL INSPECTOR Encounter Details Date Type Department Care Team (Late st Contact Info) Description 03/16/2024 Orders Only Division of Colon and Rectal Surgery in [place], [place] [address] [place] [phone] Estuardo Amin P.A.-C. [address] [place] [phone] Malignant Neoplasm Of Colon (HCC) (Primary Dx) Social History Tobacco Use Types Packs/Day Years Used Date Smoking Tobacco: Never Passive Smoke Exposure: Never Smokeless Tobacco: Never [facility] Utilities Answer Date Recorded In the past 12 months has [employer], gas, oil, or water company threatened [...] your living situation today? I have a [facility] place to live 11/27/2023 Comments Unknown Sex and Gender Information Value Date Recorded Sex Assigned at Female 11/27/2023 7:44 PM CDT Legal Sex Female 4:15 PM CDT Gender Identity Female 11/27/2023 7:44 PM CDT Sexual Orientation Straight 11/27/2023 7 :44 PM CDT documented as of this encounter Plan of Treatment Upcoming Encounters Date Type Department Care Team (Latest Contact Info) Description 04/09/2024 9:15 AM PRESSURE VESSEL INSPECTOR Telemedicine Department of Obstetrics and Gynecology, Division of Gynecologic Oncology in [place], [place] 200 [place] [address] Luis Johns M.D. 200 [place] [address] 04/10/2024 7:25 AM PRESSURE VESSEL INSPECTOR Hospital [facility] 01 4 AM ADMIT [address] [place] [address] Marbella Garcia M.D. [address] [place] [phone] 04/10/2024 7:25 AM PRESSURE VESSEL INSPECTOR - 04/10/2024 1:16 PM PRESSURE VESSEL INSPECTOR Surgery RST RO MAIN OR [address] [place] [address] Marbella Garcia M.D. [address] [place] [phone] LAPAROSCOPIC COLECTOMY extended RIGHT WITH ANASTOMOSIS 05/01/2024 10:30 AM PRESSURE VESSEL INSPECTOR Office Visit Department of Medical Genetics in [place], [place] [address] [place] [phone] Ary Robbins M.D. [address] [place] [phone] Rasheeda Reynolds MRandeeS., [facility] [address] [place] [phone] Scheduled Procedures Name Priority Associated Diagnoses Date/Ti me LAPAROSCOPIC COLECTOMY RIGHT WITH ANASTOMOSIS Malignant Neoplasm Of Colon (HCC) 04/10/2024 7:25 AM PRESSURE VESSEL INSPECTOR LAPAROSCOPIC SALPINGO-OOPHORECTOMY Malignant Neoplasm Of Colon (HCC) 04/10/2024 7:25 AM PRESSURE VESSEL INSPECTOR TRACHELECTOMY VAGINA Malignant Neoplasm Of Colon (HCC) 04/10/2024 7:25 AM PRESSURE VESSEL INSPECTOR Scheduled Referrals Name Type Priority Associated Diagnoses Order Schedule Colon and Rectal Surgery - Colorectal cancer consult (clinic) Outpatient Referral Routine Malignant Neoplasm Of Colon (HCC) Expected: 03/16/2024, Expires: 06/14/2025 documented as of this encounter Results * (ABNORMAL) Comprehensive Metabolic Panel (03/19/2024 7:43 AM PRESSURE VESSEL INSPECTOR) Potassium, S 3.5(L) 3.6 - 5.2 mmol/L 03/19/2024 8:52 AM PRESSURE VESSEL INSPECTOR DTL Sodium, S 140 135 - 145 mmol/L 03/19/2024 8:52 AM PRESSURE VESSEL INSPECTOR DTL Chloride, S 95(L) 98 - 107 mmol/L 03/19/2024 8:52 AM PRESSURE VESSEL INSPECTOR DTL Bicarbonate, S 30(H) 22 - 29 mmol/L 03/19/2024 8:52 AM PRESSURE VESSEL INSPECTOR DTL Anion Gap 15 7 - 15 03/19/2024 8:52 AM PRESSURE VESSEL INSPECTOR DTL BUN (Blood Urea Nitrogen), S 13 6 - 21 mg/dL 03/19/2024 8:52 AM PRESSURE VESSEL INSPECTOR DTL Creatinine 0.55(L) 0.59 - 1.04 mg/dL 03/19/2024 8:52 AM PRESSURE VESSEL INSPECTOR DTL Estimated GFR (eGFR) >90 >=60 mL/min/BS A 03/19/2024 8:52 AM PRESSURE VESSEL INSPECTOR DTL Comment: Estimated GFR calculated using the 2020 CKD_EPI creatinine equation. Calcium, Total, S 9.8 8.6 - 10.0 mg/dL 03/19/2024 8:52 AM PRESSURE VESSEL INSPECTOR DTL Glucose, S 129 70 - 140 mg/dL 03/19/2024 8:52 AM PRESSURE VESSEL INSPECTOR DTL Protein, Total, S 7.4 6.3 - 7.9 g/dL 03/19/2024 8:52 AM PRESSURE VESSEL INSPECTOR DTL Albumin, S 4.1 3.5 - 5.0 g/dL 03/19/2024 8:52 AM PRESSURE VESSEL INSPECTOR DTL Aspartate Aminotransferase (AST), S 15 8 - 43 U/L 03/19/2024 8:52 AM PRESSURE VESSEL INSPECTOR DTL Alkaline Phosphatase, S 78 35 - 104 U/L 03/19/2024 8:52 AM PRESSURE VESSEL INSPECTOR DTL Alanine Aminotransferase (ALT), S <7(L) 7 - 45 U/L 03/19/2024 9:07 AM PRESSURE VESSEL INSPECTOR DTL Bilirubin, Total, S 0.3 0.0 - 1.2 mg/dL 03/19/2024 8:52 AM PRESSURE VESSEL INSPECTOR DTL Blood (Blood, Venous) 03/19/2024 7:43 AM PRESSURE VESSEL INSPECTOR 03/19/2024 8:24 AM PRESSURE VESSEL INSPECTOR Estuardo Amin P.A.-C. LAB BLOOD ADD-ON Final Re sult Performing Organization Address City/[facility] Co de Phone Number [facility] 200 [place] [address], [facility] 200 [place] [address] * (ABNORMAL) CBC without Differential (03/19/2024 7:43 AM PRESSURE VESSEL INSPECTOR) Hemoglobin 8.7(L) 11.6 - 15.0 g/dL 03/19/2024 8:33 AM PRESSURE VESSEL INSPECTOR DTL Hematocrit 30.6(L) 35.5 - 44.9 % 03/19/2024 8:33 AM PRESSURE VESSEL INSPECTOR DTL Erythrocytes 4.07 3.92 - 5.13 x10(12)/L 03/19/2024 8:33 AM PRESSURE VESSEL INSPECTOR DTL MCV 75.2(L) 78.2 - 97.9 fL 03/19/2024 8:33 AM PRESSURE VESSEL INSPECTOR DTL RBC Distrib Width 18.5(H) 12.2 - 16.1 % 03/19/2024 8:33 AM PRESSURE VESSEL INSPECTOR DTL Platelet Count 551(H) 157 - 371 x10(9)/L 03/19/2024 8:33 AM PRESSURE VESSEL INSPECTOR DTL Leukocytes 11.1(H) 3.4 - 9.6 x10(9)/L 03/19/2024 8:33 AM PRESSURE VESSEL INSPECTOR DTL Blood (Blood, Venous) 03/19/2024 7:43 AM PRESSURE VESSEL INSPECTOR 03/19/2024 8:12 AM PRESSURE VESSEL INSPECTOR Estuardo Amin P.A.-C. LAB BLOOD ADD-ON Final Re sult Performing Organization Address City/[facility]/ZIP Co de Phone Number [facility] [address] [place] [address], [facility] [address] [place] [address] * (ABNORMAL) CEA (Carcinoembryonic Antigen) (03/19/2024 7:43 AM PRESSURE VESSEL INSPECTOR) Carcinoembryonic Ag (CEA), S 3.3(H) ng/mL 03/19/2024 3:44 PM PRESSURE VESSEL INSPECTOR [facility] Comment: ----REFERENCE VALUE---- <=3.0 (Non-smokers) Some smokers may have elevated CEA, usually <5.0. ----ADDITIONAL INFORMATION---- The testing method is an immunoenzymatic assay manufactured by [employer] and performed on the FigCard DxI 800. Values obtained with different assay methods or kits may be different and cannot be used interchangeably. Test results cannot be interpreted as absolute evidence for the presence or absence of malignant disease. Blood (Blood, Venous) 03/19/2024 7:43 AM PRESSURE VESSEL INSPECTOR 03/19/2024 2:42 PM PRESSURE VESSEL INSPECTOR us Estuardo Amin P.A.-C. LAB BLOOD ADD-ON Final Re sult [facility] [address] [place] [address] [facility] [address] [place] [address] * Interpretation of Outside NM PET Scan (03/16/2024 1:46 PM PRESSURE VESSEL INSPECTOR) Anatomical Region Laterality Modality Nuclear Medicine PET RST LOS , Nuclear Medicine ARZ LOS, Nuclear Medicine FLA LOS, Nuclear Medicine, Other, Neuroradiology ARZ LOS, Neuroradiology FLA LOS, Neuroradiology RST LOS, Body N/A Nuclear Medicine Impressions 03/17/2024 9:32 AM PRESSURE VESSEL INSPECTOR 1. Intense FDG activity at the left transverse lesion consistent with biopsy-proven malignancy. 2. No evidence of FDG avid lymphadenopathy in the chest, abdomen and pelvis. 3. Indeterminate hypodense right adrenal nodule without significant FDG activity. 4. Increased FDG activity with opacification of the right ethmoidal and sphenoid sinuses as well as prominent tonsils most likely infectious/inflammatory in nature. Narrative 03/17/2024 9:32 AM PRESSURE VESSEL INSPECTOR EXAM: INTERPRETATION OF OUTSIDE NM PET SCAN [...] the spine with mild anterior wedging of [id number] body. IMPRESSION: 1. Intense FDG activity at [...]
[2024-04-05 15:11] LABS: Basophils Absolute Auto 0.01 K/uL (0.00-0.30); Basophils Percent Auto 0.1 % (0.0-3.0); Eosinophils Absolute Auto 0.03 K/uL (0.00-0.50); Eosinophils Percent Auto 0.4 % (0.0-7.0); Hematocrit 31.3 % (33.0-51.0); Hemoglobin* 9.2 gm/dL (12.0-16.0); Immature Granulocytes Abs Auto 0.07 K/uL (0.00-0.30); Lymphocytes Percent Auto 6.5 % (20-44); Mean Corpuscular HGB Conc 29 gm/dL (32-36); Mean Corpuscular Hemoglobin 23 pg (26-34); Mean Corpuscular Volume 79 fL (80-100); Monocytes Percent Auto 20.9 % (0.0-11.0); Neutrophils Absolute Auto 5.13 K/uL (1.7-7.0); Neutrophils Percent Auto 71.1 % (42.0-72.0); Platelet Count* 388 K/uL (140-440); Red Blood Count 3.94 m/uL (4.00-5.20); White Blood Count* 7.22 K/uL (4.50-11.00)
[2024-04-05 15:12] VITALS: BP 119/69; PULSE 87; RESP 18; O2SAT 93
[2024-04-05 15:15] LABS: Slide Review Reflex No
[2024-04-05 15:17] LABS: PCR FLU A Negative PCR FLU A (Negative); PCR FLU B Negative PCR FLU B (Negative); PCR RSV Negative PCR RSV (Negative); SARS PCR* POSITIVE SARS-CoV-2 (Negative)
[2024-04-05 15:35] LABS: Albumin* 4.2 g/dL (3.3-5.0); Chloride* 99 mmol/L (96-114); Sodium* 135 mmol/L (135-149)
[2024-04-05 15:38] LABS: Alkaline Phosphatase* 64 U/L (40-150); Anion Gap 8 mEq/L (7-15); Aspartate Amino Transferase* 28 U/L (12-35); Bilirubin Total* 0.4 mg/dL (0.1-1.5); Blood Urea Nitrogen* 13 mg/dL (7-30); Carbon Dioxide* 28 mmol/L (20-32); Creatinine* 0.5 mg/dL (0.5-1.5); Est. Creatinine Clearance* 110.36; Estimated Glomerular Filt Rate 109 ml/min; Total Protein* 7.2 g/dL (6.0-8.3)
[2024-04-05 15:39] LABS: Alanine Aminotransferase* 8 U/L (4-35); Calcium* 9.1 mg/dL (8.4-10.6); Glucose* 136 mg/dL (60-115)
== END 2024-04-05 16:05 | disposition home or self-care (01) ==
PROVIDERS: Emergency Provider Internal Medicine; PCP Internal Medicine
DX: U07.1 COVID-19 (principal)
CPT/HCPCS: 36415; 71046; 80053; 85025; 87631; 99283

== ENCOUNTER 2024-08-14 11:03 | Outpatient (CLI) | payer BC, SELFPAY ==
[2024-08-14 14:05] LABS: Hemoglobin A1C* 6.1 % (0-5.6)
[2024-08-14 14:59] LABS: Vitamin B12* 233 pg/mL (243-894)
[2024-08-15 13:33] LABS: Folate, Serum 13.9 ng/mL (>=5.9)
[2024-08-21 02:34] LABS: MMA Vitamin B12 Status 0.29 umol/L (0.00-0.40)
== END 2024-08-14 11:04 | disposition home or self-care (01) ==
LOC: NPINS 11:05
PROVIDERS: PCP Internal Medicine; Visit Provider Psychiatry & Neurology Neurology
DX: R20.2 Paresthesia of skin (principal); D50.9 Iron deficiency anemia, unspecified; Z85.038 Personal history of other malignant neoplasm of large intestine
CPT/HCPCS: 82607; 82746; 83036; 83921; 86334

== ENCOUNTER 2024-08-17 14:35 | Outpatient (CLI) | payer BC, SELFPAY | END 2024-08-17 14:36 | disposition home or self-care (01) | PROVIDERS: PCP Internal Medicine; Visit Provider Internal Medicine | DX: E78.5 Hyperlipidemia, unspecified (principal); I10 Essential (primary) hypertension; D50.9 Iron deficiency anemia, unspecified; Z85.038 Personal history of other malignant neoplasm of large intestine | CPT/HCPCS: 80048; 80061; 82378; 82728 ==

== ENCOUNTER 2024-11-20 14:18 | Outpatient (CLI) | payer BC, SELFPAY ==
--- NOTE | 2024-11-20 15:00 | CRLHL7_ITS ---
For Patients: As a result of the Century Cures Act, medical imaging exams and procedure reports are released immediately into your electronic medical record. You may view this report before your referring provider. If you have questions, please contact your health care provider. INDICATION: Malignant neoplasm of colon TECHNIQUE: CT chest, abdomen and pelvis acquired with 111 cc Isovue 370 IV contrast. Multiplanar axial, coronal, and sagittal reformats are included. MIP images. COMPARISON: CT 02/05/2024 FINDINGS: CHEST: Cardiovascular structures: Heart size is normal. Thoracic aorta and main pulmonary artery are normal in caliber. Mediastinum and mona: No mass or adenopathy. Lungs and pleura: Unchanged nodular density in the inferior lingula measuring 1.7 centimeters given variations in measurement technique Right upper lobe micronodules unchanged Right lower lobe micronodule unchanged no new or enlarging nodules are seen. Chest wall and axilla: No mass or adenopathy. ABDOMEN AND PELVIS: Liver: Ready appearance to the liver. Gallbladder and bile ducts: Unremarkable. Pancreas: Unremarkable. Spleen: Unremarkable. Adrenal glands: right adrenal nodule unchanged. Kidneys: Unremarkable. GI tract: Right hemicolectomy large amount of stool within the colon which otherwise appears unremarkable. Vascular structures: Abdominal aorta is normal in caliber. Lymph nodes: No pathologic adenopathy seen. Miscellaneous: Probable area of fat necrosis anterior left abdomen in central pelvis Pelvic Organs: Unremarkable. Bones: No suspicious bone lesions. Similar L1 mild compression fracture IMPRESSION: 1. Lingular nodular density without significant change. A few tiny micro nodules no new or enlarging nodules are seen. 2. Right hemicolectomy. No findings for recurrent or metastatic disease. Please note that all CT scans at this facility use dose modulation, iterative reconstruction, and/or weight-based dosing when appropriate to reduce radiation dose to as low as reasonably achievable. Dictated by Frieda Hough MD @ 11/22/2024 8:02:50 AM (Electronically Signed)
== END 2024-11-20 14:19 | disposition home or self-care (01) ==
LOC: CT 14:19
PROVIDERS: PCP Internal Medicine; Visit Provider Internal Medicine Hematology & Oncology
DX: Z85.038 Personal history of other malignant neoplasm of large intestine (principal); R59.0 Localized enlarged lymph nodes
CPT/HCPCS: 71260; 74177; Q9967

== ENCOUNTER 2024-11-25 13:30 | Outpatient (RCR) | payer BC, SELFPAY | END 2025-02-15 23:59 | disposition home or self-care (01) | LOC: CCIC 13:30 | PROVIDERS: PCP Internal Medicine; Visit Provider Internal Medicine Hematology & Oncology | DX: C18.9 Malignant neoplasm of colon, unspecified (principal); G20.A1 Parkinson's disease without dyskinesia, without mention of fluctuations; R91.1 Solitary pulmonary nodule; M79.89 Other specified soft tissue disorders; I10 Essential (primary) hypertension; E78.5 Hyperlipidemia, unspecified | CPT/HCPCS: 93970; 99202; 99205; 99215; G0463 ==

== ENCOUNTER 2024-11-25 14:43 | Outpatient (CLI) | payer BC, SELFPAY ==
--- NOTE | 2024-11-25 15:15 | CRLHL7_ITS ---
For Patients: As a result of the Century Cures Act, medical imaging exams and procedure reports are released immediately into your electronic medical record. You may view this report before your referring provider. If you have questions, please contact your health care provider. INDICATION: Bilateral Lower Extremity Swelling with Recent Traveling TECHNIQUE: Venous duplex ultrasound of the bilateral lower extremities utilizing compression with muhammad-scale, color Doppler, and spectral Doppler imaging. COMPARISON: None FINDINGS: There is no sonographic evidence of deep vein thrombosis in the bilateral common femoral, deep femoral, superficial femoral, popliteal, posterior tibial, anterior tibial, gastrocnemius, or peroneal veins. There is no visualized superficial vein thrombosis. Elizabeth`s cyst in the right popliteal fossa with some internal calcifications measuring 2.8 x 1.4 x 3.4 centimeters. IMPRESSION: No deep vein thrombosis in the bilateral lower extremities. Dictated by Heber Arias MD @ 11/25/2024 4:44:57 PM (Electronically Signed)
== END 2024-11-25 14:44 | disposition home or self-care (01) ==
PROVIDERS: PCP Internal Medicine; Visit Provider Internal Medicine Hematology & Oncology
DX: R22.43 Localized swelling, mass and lump, lower limb, bilateral (principal); Z85.038 Personal history of other malignant neoplasm of large intestine
CPT/HCPCS: 93970

== ENCOUNTER 2025-02-01 10:15 | Outpatient (CLI) | payer BC, SELFPAY ==
--- NOTE | 2025-02-01 11:35 | P.ANES_ITS ---
Anesthesia Charges Start Date/Time Anesthesia Start Date: 02/01/25 Anesthesia Start Time: 11:10 Stop Date/Time Anesthesia Stop Date: 02/01/25 Anesthesia Stop Time: 11:35 Coding CPT Codes CPT Codes: ANES LWR INTST SCR COLSC - 16253 ([id number]) P3 - PATIENT W/SEVERE SYS DISEASE, QX - HYDROGENATION OPERATOR SVC W/ MD MED DIRECTION, QK - MAINTENANCE PAINTER APPRENTICE 2-4 CNCRNT ANES PROC
--- NOTE | 2025-02-01 11:35 | W.ANESCHARGE ---
Anesthesia Charges Start Date/Time Anesthesia Start Date: 02/01/25 Anesthesia Start Time: 11:10 Stop Date/Time Anesthesia Stop Date: 02/01/25 Anesthesia Stop Time: 11:35 Coding CPT Codes CPT Codes: ANES LWR INTST SCR COLSC - 38569 ([id number]) P3 - PATIENT W/SEVERE SYS DISEASE, QX - DIESEL SERVICE JOURNEYMAN SVC W/ MD MED DIRECTION, QK - CISTERN ROOM OPERATOR 2-4 CNCRNT ANES PROC
--- NOTE | 2025-02-01 13:05 | P.ANES_ITS ---
Anesthesia Charges Start Date/Time Anesthesia Start Date: 02/01/25 Anesthesia Start Time: 11:10 Stop Date/Time Anesthesia Stop Date: 02/01/25 Anesthesia Stop Time: 11:35 Coding CPT Codes CPT Codes: ANES LWR INTST SCR COLSC - 33332 ([id number]) QK - MASTER MACHINIST 2-4 CNCRNT ANES PROC, QX - RESIN FILTERER SVC W/ MED DIRECTION, P3 - PATIENT W/SEVERE SYS DISEASE
--- NOTE | 2025-02-01 13:05 | W.ANESCHARGE ---
Anesthesia Charges Start Date/Time Anesthesia Start Date: 02/01/25 Anesthesia Start Time: 11:10 Stop Date/Time Anesthesia Stop Date: 02/01/25 Anesthesia Stop Time: 11:35 Coding CPT Codes CPT Codes: ANES LWR INTST SCR COLSC - 14810 ([id number]) QK - DIRECTOR OF ANALYTICS 2-4 CNCRNT ANES PROC, QX - MECHANICAL MANUFACTURING ENGINEER SVC W/ MED DIRECTION, P3 - PATIENT W/SEVERE SYS DISEASE
== END 2025-02-01 10:16 | disposition home or self-care (01) ==
LOC: OP CLINIC 10:16
PROVIDERS: PCP Internal Medicine; Visit Provider Internal Medicine
DX: Z12.11 Encounter for screening for malignant neoplasm of colon (principal); Z85.038 Personal history of other malignant neoplasm of large intestine; Z98.0 Intestinal bypass and anastomosis status
CPT/HCPCS: 00812; 45378; J2405; J2704

== ENCOUNTER 2025-02-08 14:59 | Outpatient (CLI) | payer BC, SELFPAY ==
--- NOTE | 2025-02-08 15:00 | CRLHL7_ITS ---
For Patients: As a result of the Century Cures Act, medical imaging exams and procedure reports are released immediately into your electronic medical record. You may view this report before your referring provider. If you have questions, please contact your health care provider. BILATERAL DIGITAL SCREENING MAMMOGRAM WITH COMPUTER-AIDED DETECTION AND TOMOSYNTHESIS CLINICAL HISTORY: : Routine screening exam. Personal history of colon cancer COMPARISON: 12/06/2023, 11/11/2023, [id number], May 26, 2021 TECHNIQUE: Digital mammogram in CC and MLO projections including computer-aided detection (CAD) and tomosynthesis. BREAST COMPOSITION: There are scattered areas of fibroglandular density. FINDINGS: RIGHT Breast: Mass upper outer right breast posterior depth LEFT Breast: Mass left upper breast medial location posterior depth IMPRESSION: BILATERAL breast asymmetries/masses. RECOMMENDATIONS: BILATERAL breast ultrasound is required for further characterization. A member of the health care team will contact the patient to schedule the required additional imaging appointment. BI-RADS Category 0: Incomplete: Need Additional Imaging Evaluation Dictated by Sumi Campo MD @ 02/09/2025 10:09:10 AM (Electronically Signed)
== END 2025-02-08 15:00 | disposition home or self-care (01) ==
LOC: MAMMO 14:59
PROVIDERS: PCP Internal Medicine; Visit Provider Internal Medicine
DX: Z12.31 Encounter for screening mammogram for malignant neoplasm of breast (principal); N63.10 Unspecified lump in the right breast, unspecified quadrant; N63.20 Unspecified lump in the left breast, unspecified quadrant
CPT/HCPCS: 77063; 77067

== ENCOUNTER 2025-02-10 10:52 | Outpatient (CLI) | payer BC, SELFPAY ==
--- NOTE | 2025-02-10 11:15 | CRLHL7_ITS ---
For Patients: As a result of the Cures Act, medical imaging exams and procedure reports are released immediately into your electronic medical record. You may view this report before your referring provider. If you have questions, please contact your health care provider. BILATERAL BREAST ULTRASOUND INDICATION: 59-year-old female. Reported LEFT breast masses/nodules described on a recent mammogram February 08, 2025. TECHNIQUE: BILATERAL breast ultrasounds with this radiologist present. COMPARISON: Correlation is made with a recent mammogram February 08, 2025. FINDINGS: Within the upper outer quadrant of the RIGHT breast 10 o`clock position 5 cm from the nipple there is a well-circumscribed 9 x 6 x 8 mm simple cyst. This corresponds to the density described on the recent mammogram. Directed LEFT breast ultrasound at the 10 o`clock position 4 cm from the nipple demonstrates a simple cyst measuring 9 x 6 x 9 mm. This corresponds to the density on mammography. A few additional much smaller cysts were identified in each breast. These were not specifically imaged by ultrasound but were seen at real-time ultrasound evaluation. These findings were discussed in detail with the patient and the patient`s . Annual mammography is recommended. A lay language report of this examination will be provided to the patient. BI-RADS Category 2: Benign Dictated by: Don Maurice MD @02/10/2025 1:08:16 PM /sp SP/Dictated by: Don Maurice MD @ 02/10/2025 1:08:00 PM (Electronically Signed)
== END 2025-02-10 10:53 | disposition home or self-care (01) ==
LOC: US 10:54
PROVIDERS: PCP Internal Medicine; Visit Provider Internal Medicine Hematology & Oncology
DX: N63.20 Unspecified lump in the left breast, unspecified quadrant (principal); N60.02 Solitary cyst of left breast; R92.8 Other abnormal and inconclusive findings on diagnostic imaging of breast
CPT/HCPCS: 76642

== ENCOUNTER 2025-02-15 16:36 | Outpatient (CLI) | payer BC, SELFPAY | END 2025-02-15 16:37 | disposition home or self-care (01) | LOC: NFLDREF 02-19 08:35 | PROVIDERS: PCP Internal Medicine; Referring Provider Internal Medicine | DX: N30.01 Acute cystitis with hematuria (principal) | CPT/HCPCS: 87086 ==

== ENCOUNTER 2025-02-17 13:26 | Outpatient (CLI) | payer BC, SELFPAY ==
--- NOTE | 2025-02-17 14:00 | CRLHL7_ITS ---
For Patients: As a result of the Century Cures Act, medical imaging exams and procedure reports are released immediately into your electronic medical record. You may view this report before your referring provider. If you have questions, please contact your health care provider. INDICATION: Follow-up for colon cancer TECHNIQUE: CT chest, abdomen and pelvis acquired 117 cc Isovue 370 IV contrast. COMPARISON: CT abdomen and pelvis January 2024 and November 2024 FINDINGS: CHEST: Cardiovascular structures: Heart size is normal. Thoracic aorta and main pulmonary artery are normal in caliber. Mediastinum and mona: No mass or adenopathy. Lungs and pleura: No effusion or pneumothorax. Stable 3 millimeter nodule in the right upper and lower lobe.. Mild atelectasis/scarring within the lingula. No new nodule. Chest wall and axilla: No mass or adenopathy. Bones: No suspicious bone lesions. Multilevel degenerative changes of the spine. ABDOMEN AND PELVIS: Liver: Hepatomegaly measuring 22 cm.. Diffuse hepatic steatosis. Identified along the right lateral fluid density lesion aspect of liver is likely decompressed bowel loop. Gallbladder and bile ducts: Unremarkable. Pancreas: Unremarkable. Spleen: Unremarkable. Adrenal glands: No suspicious mass. Kidneys: Unremarkable. GI tract: Postsurgical changes of right hemicolectomy. No suspicious wall thickening or localized inflammation. Moderate amount of colonic fecal retention, likely constipation. Vascular structures: Abdominal aorta is of normal caliber. Minimal atherosclerosis. Lymph nodes: Unremarkable. Peritoneum/Retroperitoneum/Abdominal Wall: Unremarkable. No free air or significant free fluid. Unchanged small focal area of fatty necrosis in the left lateral abdomen. Pelvic Organs: Small fat containing left inguinal hernia. Bones and superficial soft tissues: No suspicious bone lesions. Multilevel degenerative changes of the spine. IMPRESSION: Right hemicolectomy. No findings to suspect recurrent or metastasis disease. Lingular opacities likely related to scarring/atelectasis. No interval change. No new pulmonary nodule. Please note that all CT scans at this facility use dose modulation, iterative reconstruction, and/or weight-based dosing when appropriate to reduce radiation dose to as low as reasonably achievable. Dictated by Christopher Contreras MD @ 02/18/2025 9:46:55 AM (Electronically Signed)
== END 2025-02-17 13:27 | disposition home or self-care (01) ==
LOC: CT 13:26
PROVIDERS: PCP Internal Medicine; Visit Provider Internal Medicine Hematology & Oncology
DX: Z08 Encounter for follow-up examination after completed treatment for malignant neoplasm (principal); Z85.038 Personal history of other malignant neoplasm of large intestine; R16.0 Hepatomegaly, not elsewhere classified; K76.0 Fatty (change of) liver, not elsewhere classified; R91.8 Other nonspecific abnormal finding of lung field; K40.90 Unilateral inguinal hernia, without obstruction or gangrene, not specified as recurrent
CPT/HCPCS: 71260; 74177; Q9967

== ENCOUNTER 2025-02-22 09:41 | Outpatient (CLI) | payer BC, SELFPAY | END 2025-02-22 09:42 | disposition home or self-care (01) | LOC: NFLDREF 03-02 15:12 | PROVIDERS: PCP Internal Medicine; Referring Provider Internal Medicine; Visit Provider Internal Medicine Hematology & Oncology | DX: E53.8 Deficiency of other specified B group vitamins (principal); Z85.038 Personal history of other malignant neoplasm of large intestine; Z15.09 Genetic susceptibility to other malignant neoplasm | CPT/HCPCS: 80053; 82378; 82607 ==